=== PATIENT | male | born 1960 | race African-American/Black ===

== ENCOUNTER 2022-12-03 11:07 | Emergency (ER) | payer MEDICARE, SELFPAY ==
[2022-12-03 11:16] VITALS: BP 114/76; PULSE 70; RESP 18; TEMP 36.5; O2SAT 100; BMI 31.3
--- NOTE | 2022-12-03 11:33 | ED.GENADUL1 ---
HPI - General Adult General Chief complaint: Urogenital-Male Stated complaint: HEMATURIA Time Seen by Provider: 12/03/22 11:19 Source: patient Mode of arrival: walk-in Limitations: no limitations History of Present Illness HPI narrative: for the last 7 days the patient has urinated blood and passed blood per rectum. He initially had decreased appetite and upper abdominal pain but has none now. No flank pain. No fever or chills. No skin rash. he went to [facility] [place] [facility] last week - he told me they did an EKG and discharged him home without any other tests. He went to his PCP's office this morning and Dr Gray immediately sent him to the ED for evaluation. No prior history of GI bleed, kidney stones, UTI. he has CHF and takes Eliquis. Related Data Allergies Allergy/AdvReac Type Severity Reaction Status Date / Time No Known Drug Allergies Allergy Verified 12/03/22 11:21 Exam Narrative Exam Narrative: Nurses notes and vital signs reviewed and patient is not hypoxic. afebrile General: Well-appearing and in no apparent distress. Skin: Warm, dry, no pallor noted. No rash. Head: Normocephalic, atraumatic. Neck: Supple, non-tender. Eye: Pupils are equal, round and EOMI. No scleral icterus. Ears, Nose, Mouth, and Throat: Oral mucosa is moist, no posterior oropharynx erythema, uvula is mid-line Cardiovascular: Regular Rate and Rhythm without murmur, gallop or rub. Respiratory: No accessory muscle use or respiratory distress. Lungs are clear to auscultation, no wheezing, rales or rhonchi Back: No midline thoracic or lumbar vertebral tenderness. No CVA tenderness Musculoskeletal: normal ROM, no calf or popliteal tenderness, no lower extremity edema/swelling GI: Abdomen is soft, non-distended. Normal bowel sounds. No masses appreciated. No tenderness to palpation. No rebound, guarding, or rigidity noted. Neurological: A&O x4. No cranial nerve dysfunction observed. No truncal ataxia. Moves all extremities. Sensation intact. Psychiatric: Cooperative and interactive. Normal mood and affect. Constitutional Vital Signs, click to edit/add: Last Vital Signs Temp 97.7 F 12/03/22 11:16 Pulse 55 L 12/03/22 13:02 Resp 18 12/03/22 13:02 BP 125/66 H 12/03/22 13:02 Pulse Ox 96 12/03/22 13:02 O2 Del Method Room Air 12/03/22 11:16 Course Vital Signs Vital signs: Vital Signs Temperature 97.7 F 12/03/22 11:16 Pulse Rate 70 12/03/22 11:16 Respiratory Rate 18 12/03/22 11:16 Blood Pressure 114/76 12/03/22 11:16 Pulse Oximetry 100 12/03/22 11:16 Oxygen Delivery Method Room Air 12/03/22 11:16 Temperature 97.7 F 12/03/22 11:16 Pulse Rate 55 L 12/03/22 13:02 Respiratory Rate 18 12/03/22 13:02 Blood Pressure 125/66 H 12/03/22 13:02 Pulse Oximetry 96 12/03/22 13:02 Oxygen Delivery Method Room Air 12/03/22 11:16 Medical Decision Making MDM Narrative Medical decision making narrative: Patient is on eliquis and has CHF. Will be checked for kidney stones, GI bleed and any abdominal or pelvic pathology to account for that. A peripheral IV was established and blood drawn and sent for testing. He was ordered to give us a urine sample for testing as well. He was sent for CT scanning of the abdomen pelvis with both oral and IV contrast. CBC notable for slightly decreased white blood cell count, decreased platelets at 86. CMP notable for decreased potassium at 3.0, slightly elevated BUN and creatinine at thirty-four, 1.99 as well as slightly elevated total bilirubin at 1.4. UA revealed small amount of blood and trace leukocyte esterace with zero to two white cells, no bacteria. Urine culture is not indicated. CT abd/pelvis = unremarkable, possibly early cystitis. Nothing to account for the patient's hematuria or dark stools. Discussed findings with Dr Gray, who saw the patient in the office today. He recommended discharge home with out-patient follow up. Medical Records Medical records reviewed: Yes I reviewed the patient's medical records Medical records narrative: ER report faxed from [facility] - dated November 21, patient was intoxicated and fell - had negative CT scans of the head and CSpine. No mention of hematuria or GI bleed. Lab Data Lab results reviewed: Yes I reviewed the patient's lab results Labs: Lab Results 12/03/22 12/03/22 Range/Units 11:31 11:50 WBC 3.7 L (4.0-11.0) 10^3/uL RBC 3.94 L (4.70-6.10) 10^6/uL Hgb 13.4 L (14.0-18.0) g/dL Hct 37.8 L (42.0-54.0) % MCV 95.9 H (80.0-94.0) fL MCH 34.0 (25.9-34.0) pg MCHC 35.4 H (29.9-35.2) g/dL RDW 11.7 (11.0-15.0) % Plt Count 86 L (150-450) 10^3/uL MPV 12.9 (9.5-13.5) fL Neut % (Auto) 34.7 L (43.0-75.0) % Lymph % (Auto) 41.9 (20.5-60.0) % Grainger % (Auto) 15.9 H (1.7-12.0) % Eos % (Auto) 5.8 (0.9-7.0) % Baso % (Auto) 1.4 (0.2-2.0) % Neut # (Auto) 1.3 L (1.4-6.5) 10^3/uL Lymph # (Auto) 1.5 (1.2-3.8) 10^3/uL Grainger # (Auto) 0.6 (0.3-0.8) 10^3/uL Eos # (Auto) 0.2 (0.0-0.7) 10^3/uL Baso # (Auto) 0.1 (0.0-0.1) 10^3/uL Abs Immat Gran (auto) 0.01 (0.00-0.03) 10^3/uL Imm/Tot Granulo (auto) 0.3 (0.0-0.5) % Sodium 136 (136-145) mmol/L Potassium 3.0 L (3.5-5.1) mmol/L Chloride 102 (98-107) mmol/L Carbon Dioxide 24.6 (21.0-32.0) mmol/L Anion Gap 12.4 BUN 34.0 H (7.0-18.0) mg/dL Creatinine 1.99 H (0.70-1.30) mg/dL Est GFR ( Amer) 41 L (>=60) Est GFR (Non-Af Amer) 34 L (>=60) BUN/Creatinine Ratio 17.1 Glucose 106 (74-106) mg/dL Calcium 8.3 L (8.5-10.1) mg/dL Total Bilirubin 1.4 H (0.2-1.0) mg/dL AST 62 H (15-37) U/L ALT 52 (16-63) U/L Alkaline Phosphatase 54 (46-116) U/L Total Protein 7.3 (6.4-8.2) g/dL Albumin 2.5 L (3.4-5.0) g/dL Globulin 4.8 g/dL Albumin/Globulin Ratio 0.5 Lipase 289.0 (73.0-393.0) U/L Urine Color Yellow (YELLOW) Urine Clarity Clear (CLEAR) Urine pH 6.0 (5.0-9.0) Ur Specific [place] 1.015 (1.005-1.025) Urine Protein Negative (NEG/TRACE) mg/dL Urine Glucose (UA) Negative (NEGATIVE) mg/dL Urine Ketones Negative (NEGATIVE) mg/dL Urine Occult Blood Small A (NEGATIVE) Urine Nitrite Negative (NEGATIVE) Urine Bilirubin Negative (NEGATIVE) Urine Urobilinogen 0.2 (0.2-1.0) EU/dL Ur Leukocyte Esterase Trace A (NEGATIVE) Urine RBC None seen (0-2) #/HPF Urine WBC 0-2 A (NONE SEEN) #/HPF Ur Squamous Epith Cells Few A (NONE/RARE) #/LPF Urine Crystals None seen (None Seen) #/HPF Urine Bacteria None seen (NONE SEEN) #/HPF Urine Casts None seen (NONE SEEN) #/LPF Urine Mucus None seen (NONE SEEN) Ur Culture Indicated? No Imaging Data ct abd/pelvis: Radiologist's impression: Patient Name: JACKI SANFORD MRN: [id number] date: 1960 Sex: M Assigned Patient Location: ER Current Patient Location: ER Accession/Order Number: [id number] Exam Date: 12/03/2022 13:18 Report Date: 12/03/2022 14:27 At the request of: LISA SIEGEL Procedure: CT abdomen pelvis w con EXAMINATION: CT abdomen pelvis w con, 12/03/2022 1:18 PM EDT HISTORY: hematuria, GI bleeding COMPARISON: Relevant priors reviewed including CT of the abdomen and pelvis 02/12/2018 TECHNIQUE: CT of the abdomen, and pelvis was performed following administration of IV contrast. Oral contrast was administered prior to the examination. Dose reduction techniques were achieved by using automated exposure control and/or adjustment of mA and/or kV according to patient size and/or use of iterative reconstruction technique. FINDINGS: Lung Bases: No acute findings in the visualized lower chest. Atherosclerotic calcification of the coronary arteries. Liver: Normal size. Widening of the seizures with slight contour nodularity raises concern for chronic hepatocellular disease/cirrhosis. No mass. Biliary tree: Normal. Gallbladder: Mild gallbladder wall thickening likely relates to underlying hepatocellular disease. No cholelithiasis or findings of acute cholecystitis. Spleen: Normal. Pancreas: Normal. Adrenal glands: Normal. Kidneys and ureters: No hydronephrosis. Subcentimeter cortical hypodensities bilaterally are technically too small to characterize, well-defined, likely benign cysts. Bladder: Diffuse bladder wall thickening, partially relates to underdistention. Reproductive organs: Prostate is not significantly enlarged. Seminal vesicles are symmetric. Gastrointestinal tract: No abnormal bowel dilatation. Active gastrointestinal bleeding cannot be assessed with the use of oral contrast. Few scattered colonic diverticula without findings of acute diverticulitis. The appendix is normal. Peritoneum/retroperitoneum: No free fluid or gas. Vasculature: Atherosclerosis without aneurysm.. Lymph nodes: Normal. Abdominal wall: Procedure change from bilateral inguinal hernia repair with mesh. Partially visualized bilateral gynecomastia. Partially visualized lipoma along the left anterior thigh musculature. No acute findings Musculoskeletal: Degenerative change of the spine. IMPRESSION: 1. No acute findings within the abdomen and pelvis. 2. Morphologic changes of the liver concerning for chronic hepatocellular disease/cirrhosis. Spleen is not significantly enlarged. No ascites. 3. Diffuse bladder wall thickening at least in part relates to underdistention. Correlate with urinalysis if there is clinical concern for cystitis. Electronically authenticated by: LM MENDOZA Date: 12/03/2022 14:27 Discharge Plan Discharge Chief Complaint: Urogenital-Male Clinical Impression: Complaint of melena, Microhematuria, Thrombocytopenia Patient Disposition: Home, Self-Care Time of Disposition Decision: 14:46 Instructions: Hematuria (ED), Melena (ED) Stand Alone Forms: Portal Instructions Referrals: Joaquin Leonard MD [Primary Care Provider] - 1 week
[2022-12-03 12:03] LABS: Basophils Absolute Auto 0.1 10^3/uL (0.0-0.1); Basophils Percent Auto 1.4 % (0.2-2.0); Eosinophils Absolute Auto 0.2 10^3/uL (0.0-0.7); Eosinophils Percent Auto 5.8 % (0.9-7.0); Hematocrit 37.8 % (42.0-54.0); Hemoglobin 13.4 g/dL (14.0-18.0); Immature Granulocytes Abs Auto 0.01 10^3/uL (0.00-0.03); Immature Granulocytes Pct Auto 0.3 % (0.0-0.5); Lymphocytes Absolute Auto 1.5 10^3/uL (1.2-3.8); Lymphocytes Percent Auto 41.9 % (20.5-60.0); Mean Corpuscular HGB Conc 35.4 g/dL (29.9-35.2); Mean Corpuscular Volume 95.9 fL (80.0-94.0); Mean Platelet Volume 12.9 fL (9.5-13.5); Monocytes Absolute Auto 0.6 10^3/uL (0.3-0.8); Monocytes Percent Auto 15.9 % (1.7-12.0); Neutrophils Absolute Auto 1.3 10^3/uL (1.4-6.5); Neutrophils Percent Auto 34.7 % (43.0-75.0); Platelet Count 86 10^3/uL (150-450); Red Blood Count 3.94 10^6/uL (4.70-6.10); Red Cell Distribution Width 11.7 % (11.0-15.0); White Blood Count 3.7 10^3/uL (4.0-11.0)
[2022-12-03 12:32] LABS: Bilirubin Urine NEGATIVE (NEGATIVE); Blood Urine SMALL (NEGATIVE); Clarity Urine CLEAR (CLEAR); Color Urine YELLOW (YELLOW); Glucose Urine UA NEGATIVE (NEGATIVE); Ketones Urine NEGATIVE (NEGATIVE); Leukocyte Esterase Urine TRACE (NEGATIVE); Nitrite Urine NEGATIVE (NEGATIVE); Protein Urine NEGATIVE (NEG/TRACE); Specific Gravity Urine 1.015 (1.005-1.025); Urobilinogen Urine 0.2 EU/dL (0.2-1.0)
[2022-12-03 12:33] LABS: Alanine Aminotransferase 52 U/L (16-63); Albumin Globulin Ratio 0.5; Albumin Level 2.5 g/dL (3.4-5.0); Alkaline Phosphatase 54 U/L (46-116); Anion Gap 12.4; Aspartate Amino Transferase 62 U/L (15-37); BUN Creatinine Ratio 17.1; Bilirubin Total 1.4 mg/dL (0.2-1.0); Calcium 8.3 mg/dL (8.5-10.1); Carbon Dioxide 24.6 mmol/L (21.0-32.0); Chloride 102 mmol/L (98-107); Estimated GFR (African America 41 (>=60); Estimated GFR (Non-African Ame 34 (>=60); Globulin 4.8 g/dL; Glucose 106 mg/dL (74-106); Sodium 136 mmol/L (136-145); Total Protein 7.3 g/dL (6.4-8.2)
[2022-12-03 12:36] LABS: Urine Microscopic Indicated YES
[2022-12-03 12:37] LABS: Bacteria Urine NONE SEEN #/HPF (NONE SEEN); RBC Urine NONE SEEN #/HPF (0-2); WBC Urine 0-2 #/HPF (NONE SEEN)
[2022-12-03 12:38] LABS: Cast Seen? NONE SEEN #/LPF (NONE SEEN); Crystals Seen? None Seen #/HPF (None Seen); Mucus Urine NONE SEEN (NONE SEEN); Squamous Epithelial Cell Urine FEW #/LPF (NONE/RARE); Urine Culture Indicated NO
[2022-12-03 13:02] VITALS: BP 125/66; PULSE 55; RESP 18; O2SAT 96
--- NOTE | 2022-12-03 13:28 | CT_ITS ---
[address] [address] Patient Name: JACKI SANFORD MRN: [id number] date: 1960 Sex: M Assigned Patient Location: ER Current Patient Location: ER Accession/Order Number: [id number] Exam Date: 12/03/2022 13:18 Report Date: 12/03/2022 14:27 At the request of: LISA SIEGEL Procedure: CT abdomen pelvis w con EXAMINATION: CT abdomen pelvis w con, 12/03/2022 1:18 PM EDT HISTORY: hematuria, GI bleeding COMPARISON: Relevant priors reviewed including CT of the abdomen and pelvis 02/12/2018 TECHNIQUE: CT of the abdomen, and pelvis was performed following administration of IV contrast. Oral contrast was administered prior to the examination. Dose reduction techniques were achieved by using automated exposure control and/or adjustment of mA and/or kV according to patient size and/or use of iterative reconstruction technique. FINDINGS: Lung Bases: No acute findings in the visualized lower chest. Atherosclerotic calcification of the coronary arteries. Liver: Normal size. Widening of the seizures with slight contour nodularity raises concern for chronic hepatocellular disease/cirrhosis. No mass. Biliary tree: Normal. Gallbladder: Mild gallbladder wall thickening likely relates to underlying hepatocellular disease. No cholelithiasis or findings of acute cholecystitis. Spleen: Normal. Pancreas: Normal. Adrenal glands: Normal. Kidneys and ureters: No hydronephrosis. Subcentimeter cortical hypodensities bilaterally are technically too small to characterize, well-defined, likely benign cysts. Bladder: Diffuse bladder wall thickening, partially relates to underdistention. Reproductive organs: Prostate is not significantly enlarged. Seminal vesicles are symmetric. Gastrointestinal tract: No abnormal bowel dilatation. Active gastrointestinal bleeding cannot be assessed with the use of oral contrast. Few scattered colonic diverticula without findings of acute diverticulitis. The appendix is normal. Peritoneum/retroperitoneum: No free fluid or gas. Vasculature: Atherosclerosis without aneurysm.. Lymph nodes: Normal. Abdominal wall: Procedure change from bilateral inguinal hernia repair with mesh. Partially visualized bilateral gynecomastia. Partially visualized lipoma along the left anterior thigh musculature. No acute findings Musculoskeletal: Degenerative change of the spine. CT/CT abdomen pelvis w con IMPRESSION: 1. No acute findings within the abdomen and pelvis. 2. Morphologic changes of the liver concerning for chronic hepatocellular disease/cirrhosis. Spleen is not significantly enlarged. No ascites. 3. Diffuse bladder wall thickening at least in part relates to underdistention. Correlate with urinalysis if there is clinical concern for cystitis. Electronically authenticated by: LM MENDOZA Date: 12/03/2022 14:27
[2022-12-03 14:43] VITALS: BP 112/79; PULSE 57; RESP 16; O2SAT 100
== END 2022-12-03 15:33 | disposition home or self-care (01) ==
PROVIDERS: Emergency Provider Emergency Medicine; PCP Family Medicine
DX: K92.1 Melena (principal); R31.29 Other microscopic hematuria; D69.6 Thrombocytopenia, unspecified; I50.9 Heart failure, unspecified; Z79.01 Long term (current) use of anticoagulants
CPT/HCPCS: 36415; 74177; 80053; 81003; 81015; 83690; 85025; 87507; 99284; Q9966

== ENCOUNTER 2022-12-10 21:49 | Outpatient (REF) | payer MEDICARE, MEDICAID, SELFPAY | END 2022-12-10 21:50 | disposition home or self-care (01) | LOC: LAB 21:49 | PROVIDERS: PCP Family Medicine; Visit Provider Internal Medicine | DX: N39.0 Urinary tract infection, site not specified (principal) | CPT/HCPCS: 87086 ==

== ENCOUNTER 2024-11-03 16:35 | Outpatient (REF) | payer MEDICARE, MEDICAID, SELFPAY ==
--- OUTSIDE RECORDS SUMMARY | 2024-08-20 11:45 | XMS_ITS ---
Author Organization [facility] vices Address [address] [place] [phone] Care Team Providers Care Bank Sales And Service Manager Name Role Phone Estrella Calhoun Unavailable [phone] Sheree Calloway Unavailable [phone] REASON FOR VISIT CANCEL-Comp. Exam Social History Sex Assigned At : Social History Observation Description Sex Assigned At Male Encounters Encounter Location Date Provider Diagnosis [facility] [address] [place], [place] [phone] 08/20/2024 Sheree Calloway Plan Of Treatment No Information Progress Notes * CLARIBELCarlosOvidio LDOB: [birth year] (64 yo M)Acc No.[id number]:08/20/2024 Patient: Ovidio ADAMS Provider: Ninfa Calloway DDS :1960 A ge:64 Y S ex:Male Date:08/20/2024 Address:[address] [place], [place] [id number] Subjective: * Chief Complaints: * 1 . CANCEL-Comp. Exam. * Medical History: Objective: * Vitals: Assessment: Plan: * Treatment: * Billing Information: * Visit Code: * Procedure Codes: * Electronic signature of Priya Calloway DDS on 11/03/2024 at 04:41 PM EDT Sign off status: Pending * Provider: Ninfa Calloway DDS Date: 08/20/2024 Generated for Orali ng/Faneg/eTransmitting on: 0 11/03/2024 04:41 PM EDT
--- OUTSIDE RECORDS SUMMARY | 2024-09-30 05:30 | XMS_ITS ---
Author Organization [facility] Address [address] [place] [phone] Care Team Providers Care Hr Analyst Name Role Phone Estrella Calhoun Unavailable [phone] Sheree Calloway Unavailable [phone] REASON FOR VISIT Comp Exam Social History Sex Assigned At : Social History Observation Description Sex Assigned At Male Encounters Encounter Location Date Provider Diagnosis [facility] [address] [place], [place] [phone] 09/30/2024 Sheree Calloway Plan Of Treatment No Information Progress Notes * Ovidio COULTER LDOB: [birth year] (64 yo M)Acc No.[id number]:09/30/2024 Patient: Alicia ADAMSmagan Norris Provider: Ninfa Calloway DDS :1960 A ge:64 Y S ex:Male Date:09/30/2024 Address:[address] [place], [place] [id number] Subjective: * Chief Complaints: * 1 . Comp Exam. * Medical History: Objective: * Vitals: Assessment: Plan: * Treatment: * Billing Information: * Visit Code: * Procedure Codes: * Electronic signature of Priya Calloway DDS on 11/03/2024 at 04:40 PM EDT Sign off status: Pending * Provider: Ninfa Calloway DDS Date: 09/30/2024 Generated for Brittany seals/Kulwinder/eTraninezitting on: 0 11/03/2024 04:40 PM EDT
--- OUTSIDE RECORDS SUMMARY | 2024-10-25 13:25 | XMS_ITS | Encounter Summary ---
Author Organization [facility] tem Address [id number] [address] [place] [address] Care Team Providers Care Seat Mender Name Role Phone Estrella Medina FAMILY PRESERVATION WORKER-SOFTWARE COMPUTER SPECIALIST Primary Care Pr ovider Reason for Visit * Reason Comments Groin Swelling States he was riding his scooter Saturday and thinks a bug crawled up his pant leg and bit him. States his testicles are swollen and painful. Encounter Details Date Type Department Care Team (Late st Contact Info) Description 10/25/2024 1:25 PM EDT - 10/25/2024 6:59 PM EDT Emergency [facility] - Emergency [address] [place] [id number] William Bowlse MD [address] [place] [address] Scrotal abscess (Primary Dx); Epididymitis Discharge Disposition: Another Hospital Social History Tobacco Use Types Packs/Day Years Used Date Smoking Tobacco: Never Smokeless Tobacco: Never Alcohol Use Standard Drinks/Week Comments Yes 28 (1 standard drink = 0.6 oz pu re alcohol) every other day [facility] Utilities Answer Date Recorded In the past 12 months has e electric, gas, oil, or water company threatened to shut off services in your home? No 10/26/2024 Social Connection and Isolat ion Panel [NHANES] Answer Date Recorded In a typical week, how many times do you talk on the phone with family, friends, or neighbors? More than three times a week 12/26/2022 How often do you get togethe r with friends or relatives? More than three times a week 12/26/2022 How often do you attend chur ch or druze services? Never 12/26/2022 Do you belong to any clubs o r organizations such as mu-ism groups, unions, fraternal or athletic groups, or school groups? No 12/26/2022 How often do you attend meet ings of the clubs or organizations you belong to? Never 12/26/2022 Are you , , di vorced, , never , or living with a partner? 12/26/2022 AUDIT-C Answer Date Recorded Q1: How often do you have a drink containing alcohol? 4 or more times a week 10/26/2024 Q2: How many drinks containi ng alcohol do you have on a typical day when you are drinking? 3 or 4 Q3: How often do you have si x or more drinks on one occasion? Weekly 10/26/2024 Overall Financial Resource Strain (CARDIA) Answe r Date Recorded How hard is it for you to pa y for the very basics like food, housing, medical care, and heating? Not very hard 12/26/2022 PHQ-2 Answer Date Recorded Total Score 0 10/26/2024 [employer] - Occupational Stress Questionnaire Answer Date Recorded Do you feel stress - tense, restless, nervous, or anxious, or unable to sleep at night because your mind is troubled all the time - these days? Only a little 12/26/2022 Exercise Vital Sign Answer Date Recorde d On average, how many days pe r week do you engage in moderate to strenuous exercise (like a brisk walk)? 2 days 12/26/2022 On average, how many minutes do you engage in exercise at this level? 20 min 12/26/2022 PRAPARE - Transportation Answer Date Re corded In the past 12 months, has l ack of transportation kept you from medical appointments or from getting medications? No 01/2025 In the past 12 months, has l ack of transportation kept you from meetings, work, or from getting things needed for daily living? No 10/26/2024 Housing Instability Answer Date Recorde d Are you worried or concerned that in the next two months you may not have stable housing that you own, rent or stay in as a part of a household? No 10/26/2024 Childcare Answer Date Recorded Do problems getting child ca re make it difficult for you to work or study? No 12/26/2022 Employment Answer Date Recorded Do you need help finding a [facility] career center and/or a training program? No 12/26/2022 Hunger Screening Answer Date Recorded Within the past 12 months we worried whether our food would run out before we got money to buy more. Never True 10/26/2024 Within the past 12 months th e food we bought just didn't last and we didn't have money to get more. Never True 10/26/2024 Purpose - Life Answer Date Recorded I have a purpose and direction in my life. Somew hat Agree 12/26/2022 Sex and Gender Information Value Date Recorded Sex Assigned at Not on file Legal Sex Male 11:24 AM EDT Gender Identity Not on file Sexual Orientation Not on file documented as of this encounter Last Filed Vital Signs Vital Sign Reading Time Taken Comments Blood Pressure 153/103 10/25/2024 6:30 PM EDT Pulse 101 10/25/2024 6:00 PM EDT Temperature 36.8 C (98.2 F) 10/25/2024 1:31 PM EDT Respiratory Rate 18 10/25/2024 1:31 PM EDT Oxygen Saturation 97% 10/25/2024 6:37 PM EDT Inhaled Oxygen Concentration - - Weight 112.9 kg (249 lb) 10/25/2024 1:31 PM EDT Height 175.3 cm (5' 9 ) 10/25/2024 1:31 PM EDT Body Mass Index 36.77 10/25/2024 1:31 PM EDT documented in this encounter Medications at Time of Discharge apixaban (ELIQUIS) 5 mg tablet Take 1 tablet (5 mg total) by mouth in the morning and 1 tablet (5 mg total) before bedtime. 180 tablet 3 11/16/2021 clopidogreL (PLAVIX) 75 mg tablet Take 1 tablet (75 mg total) by mouth in the morning for 120 days. 30 tablet 3 10/28/2024 02/25/2025 dapagliflozin propanediol (FARXIGA) 10 mg tabletIndications :CKD (chronic kidney disease) stage 4, GFR 15-29 ml/min ([facility]) Take 1 tablet (10 mg total) by mouth in the morning. 90 tablet 3 04/01/2024 ezetimibe (ZETIA) 10 mg tablet Take 1 tablet (10 mg total) by mouth in the morning. hydrOXYzine (ATARAX) 25 mg tablet Take 1 tablet (25 mg total) by mouth every 6 (six) hours as needed. 09/23/2023 isosorbide mononitrate (IMDUR) 30 mg 24 hr tablet Take 1 tablet (30 mg total) by mouth daily. phmpponc-lmn-scxc ous gluconate (CENTRUM) 9 mg iron/15 mL liquid Take 15 mL by mouth in the morning. 02/08/2023 nitroglycerin (NITROSTAT) 0.[address] 1 tablet (0.4 mg total) under the tongue every 5 (five) minutes as needed for chest pain. omeprazole (PriLOSEC) 20 mg capsule Take 1 capsule (20 mg total) by mouth daily. 30 capsule 09/27/2020 QUEtiapine (SEROquel) 25 mg tablet Take 0.5 tablets (12.5 mg total) by mouth nightly. 02/07/2023 sacubitriL-valsar mckenna (ENTRESTO) 97-103 mg tablet Take 1 tablet by mouth in the morning and 1 tablet before bedtime. 180 tablet 3 04/06/2024 spironolactone (ALDACTONE) 25 mg tabletIndications :Cardiomyopathy, unspecified type ([facility]),Congest tunde heart failure, unspecified HF chronicity, unspecified heart failure type ([facility]) take 1 tablet by mouth every morning 30 tablet 11 02/25/2024 vancomycin (VANCOCIN) 50 mg/mL oral solution Take 2.5 mL (125 mg total) by mouth every 6 (six) hours for 13 days. 130 mL 10/29/2024 11/11/2024 levoFLOXacin (LEVAQUIN) 750 mg tablet Take 1 tablet (750 mg total) by mouth in the morning for 3 days. 3 tablet 10/29/2024 11/01/2024 metroNIDAZOLE (FLAGYL) 500 mg tablet Take 1 tablet (500 mg total) by mouth 3 (three) times a day for 3 days. 9 tablet 10/28/2024 10/31/2024 acidophilus-pecti n, citrus 25 million cell -100 mg tablet Take 1 tablet by mouth in the morning and 1 tablet at noon and 1 tablet in the evening. Take with meals. 30 tablet 01/24/2023 10/26/2024 atorvastatin (LIPITOR) 80 mg tablet Take 1 tablet (80 mg total) by mouth in the morning. 10/26/2024 bumetanide (BUMEX) 2 mg tabletIndications :edema Take 1 tablet (2 mg total) by mouth 2 (two) times a day before meals Indications: visible water retention. 10/26/2024 cholecalciferol 2,000 units tablet Take 1 tablet (2,000 Units total) by mouth in the morning. 30 tablet 01/25/2023 10/26/2024 clopidogreL (PLAVIX) 75 mg tablet TAKE 1 TABLET BY MOUTH IN THE MORNING. 90 tablet 3 04/28/2024 10/26/2024 magnesium oxide (MAGOX) 400 mg tablet Take 1 tablet (400 mg total) by mouth in the morning. 90 tablet 3 04/01/2024 10/26/2024 metoprolol succinate XL (TOPROL XL) 50 mg 24 hr tablet Take 1 tablet (50 mg total) by mouth in the morning. 08/22/2023 10/26/2024 documented as of this encounter ED Notes * William Bowles MD - 10/25/2024 1:28 PM EDTAssociated Order(s): Incision and Drainage Images from the original note were not included. [facility] - EMERGENCY Pt Name: Ovidio Coulter Birthdate: 1960 Chief Complaint: Chief Complaint Patient presents with Groin Swelling States he was riding his scooter Saturday and thinks a bug crawled up his pant leg and bit him. States his testicles are swollen and painful. History of Present Illness: Initial evaluation performed at 1:[address] Bowles. Patient is a 64 y.o. male who presents to the ED for evaluation of groin pain. Pt states he thinks a bug had crawled up his pant leg while he was riding his scooter two days ago. Pt reports today, hehas been experiencing testicle pain. Pt describes swelling to his right testicle. Pt reports experiencing a headache. Pt denies fever. Pt denies taking any medication to alleviate his pain. Pt has noknown medication allergies. History provided by: Patient front worker used: No Past Medical History: Past Medical History: Diagnosis Date AAA (abdominal aortic aneurysm) ACS (acute coronary syndrome) ([facility]) 11/12/2022 Alcoholism ([facility]) Atrial fibrillation ([facility]) Bilateral leg pain Bowel wall thickening Cellulitis of left lower extremity resolved CHF (congestive heart failure) ([facility]) Chronic pain of both knees CKD (chronic kidney disease) stage 4, GFR 15-29 ml/min ([facility]) Coronary artery disease Dental disease partial upper and lower Dyslipidemia Electrolyte abnormality 05/02/2022 Elevated troponin 02/12/2018 GERD (gastroesophageal reflux disease) Gout Heart disease Hep C w/o coma, chronic ([facility]) High cholesterol Hyperglycemia Hypertension Inguinal hernia right inguinal repaired Kidney stones NH (myocardial infarction) ([facility]) 05/2018 Nstemi, 02/01/2015 MIS (Mullerian inhibiting substance) deficiency Obesity JAIME (obstructive sleep apnea) needs to get machine Renal dysfunction Renal insufficiency 04/03/2016 RUQ abdominal pain Sepsis due to urinary tract infection ([facility]) 01/09/2023 Shortness of breath Syncope 05/2018 Thrombocytopenia Unstable angina ([facility]) 09/26/2018 Visual impairment glasses Past Surgical History: Past Surgical History: Procedure Laterality Date CARDIAC CATHETERIZATION Cardiac catheterization N/A 10/13/2021 Performed by Jeff Tomas MD at [facility] CARDIAC CATH LABS COLONOSCOPY Coronary angiogram and left ventricular gram/pressure N/A 10/06/2018 Performed by Devyn Ramos DO at [facility] CARDIAC CATH LABS Coronary angiogram and left ventricular gram/pressure N/A 07/25/2016 Performed by Loreto Méndez MD at [facility] CARDIAC CATH LABS Coronary angiogram only N/A 10/13/2021 Performed by Jeff Tomas MD at [facility] CARDIAC CATH LABS CORONARY ANGIOPLASTY WITH STENT PLACEMENT 2017 three CORONARY ANGIOPLASTY WITH STENT PLACEMENT 01/27/2015 BMS, Circ, Nstemi DAVINCI ROBOTIC ASSISTED INGUINAL HERNIA REPAIR WITH MESH Bilateral 01/19/2021 Performed by Gunner Weldon MD at [facility] SURGERY EGD DIAGNOSTIC N/A 02/14/2018 Performed by Ponce Guy MD at [facility] EGD/PEG TUBE PLACEMENT N/A 01/16/2023 Performed by Denai Boothe MD at [facility] EP Invasive DC ICD N/A 03/19/2024 Performed by Socorro Ruiz MD at [facility] HRC (EP) HERNIA REPAIR Right Intravascular pressure measurement first vessel(fractional flow reserve) N/A 10/06/2018 Performed by Devyn Ramos DO at [facility] CARDIAC CATH LABS Intravascular ultrasound coronary N/A 07/25/2016 Performed by Loreto Méndez MD at [facility] CARDIAC CATH LABS PEG TUBE REMOVAL 06/25/2023 Family History: Family History Problem Relation Age of Onset Cancer Mother Colon cancer Father Hyperlipidemia Brother Hypertension Brother Kidney disease Sister Anesthesia problems Neg Hx Social History: Social History Socioeconomic History Marital status: Single Tobacco Use Smoking status: Never Smokeless tobacco: Never Vaping Use Vaping status: Never Used Substance and Sexual Activity Alcohol use: Yes Alcohol/week: 28.0 standard drinks of alcohol Types: 14 Cans of beer, 14 Shots of liquor per week Comment: every other day Drug use: Yes Types: Marijuana Comment: daily Sexual activity: Defer Other Topics Concern Caffeine Use No Comment: soda daily Social Drivers of Health Financial Resource Strain: At Risk (08/04/2024) Received from [facility] - Financial Strain Difficulty of Paying Living Expenses: Somewhat hard Food Insecurity: No Food Insecurity (10/25/2024) Hunger Screening Food Insecurity - Worry: Never True Food Insecurity - Inability: Never True Recent Concern: Food Insecurity - Food Insecurity Present (08/04/2024) Received from [facility] Hunger Vital Sign Worried About Running Out of Food in the Last Year: Sometimes true Ran Out of Food in the Last Year: Sometimes true Transportation Needs: Not At Risk (08/04/2024) Received from [facility] - Transportation Lack of Transportation: No Physical Activity: Insufficiently Active (12/26/2022) Exercise Vital Sign Days of Exercise per Week: 2 days Minutes of Exercise per Session: 20 min Stress: No Stress Concern Present (12/26/2022) [employer] - Occupational Stress Questionnaire Feeling of Stress : Only a little Social Connections: Socially Isolated (12/26/2022) Social Connection and Isolation Panel [NHANES] Frequency of Communication with Friends and Family: More than three times a week Frequency of Social Gatherings with Friends and Family: More than three times a week Attends Orthodox Services: Never Active Member of Clubs or Organizations: No Attends Club or Organization Meetings: Never Marital Status: Interpersonal Safety: Not At Risk (08/04/2024) Received from [facility] NCSS - Interpersonal Safety Feels Physically and Emotionally Safe: Yes Physically Hurt by Someone: No Humiliated or Emotionally Abused by Someone: No Housing Instability: Not At Risk (08/04/2024) Received from [facility] - Inadequate Housing Current Living Situation: I have a steady place to live Housing Problems: None of the above Review of Systems: Review of Systems Physical Exam: ED Triage Vitals Temp Pulse Resp BP SpO2 -- -- -- -- -- Temp src Heart Rate Source Patient Position BP Location FiO2 (%) -- -- -- -- -- Vitals: 10/25/24 1331 10/25/24 1415 BP: (!) 165/124 156/81 Temp: 36.8 ??C (98.2 ??F) Pulse: 104 Resp: 18 SpO2: 96% 95% Height: 175.3 cm (5' 9 ) Weight: 112.9 kg (249 lb) Physical Exam Vitals reviewed. HENT: Head: Normocephalic and atraumatic. Eyes: Conjunctiva/sclera: Conjunctivae normal. Cardiovascular: Rate and Rhythm: Normal rate. Pulmonary: Effort: Pulmonary effort is normal. Breath sounds: Normal breath sounds. Abdominal: General: There is no distension. Palpations: Abdomen is soft. Genitourinary: Testes: Right: Tenderness and swelling (and firm) present. Left: Tenderness or swelling not present. Comments: Small wound to the bottom right testicle, not draining any fluid. Musculoskeletal: General: Normal range of motion. Cervical back: Normal range of motion and neck supple. Skin: General: Skin is warm and dry. Neurological: General: No focal deficit present. Mental Status: He is alert and oriented to person, place, and time. GCS: GCS eye subscore is 4. GCS verbal subscore is 5. GCS motor subscore is 6. Procedure: Incision and Drainage Date/Time: 10/25/2024 4:22 PM Performed by: William Bowles MD Authorized by: William Bowles MD Consent: Consent obtained: Verbal Consent given by: Patient Risks, benefits, and alternatives were discussed: yes Risks discussed: Bleeding and infection [place] protocol: Procedure explained and questions answered to patient or proxy's satisfaction: yes Relevant documents present and verified: yes Test results available : yes Imaging studies available: yes Required blood products, implants, devices, and special equipment available: yes Site/side marked: yes Immediately prior to procedure, a time out was called: yes Patient identity confirmed: Verbally with patient Location: Type: Abscess Location: Anogenital Anogenital location: Scrotal wall Pre-procedure details: Skin preparation: Antiseptic wash and chlorhexidine Anesthesia: Anesthesia method: Local infiltration Local anesthetic: Lidocaine 1% w/o epi Procedure type: Complexity: Simple Procedure details: Incision types: Stab incision Incision depth: Dermal Wound management: Probed and deloculated, irrigated with saline and extensive cleaning Drainage: Purulent Drainage amount: Copious Wound treatment: Wound left open Packing materials: 05/23 in iodoform gauze Post-procedure details: Procedure completion: Tolerated Re-evaluation: Kasia Diallo (scribe), documented on behalf and in the presence of Dr. Fifi Bowles. 3:[address] Bowles re-evaluated pt and discussed imaging results. Plan to discuss findings with Urology. Medical Decision Making Amount and/or Complexity of Data Reviewed Labs: ordered. Details: Labs notable for: CBC shows WBC 12.8, RBC count 3.89, hemoglobin 12.5, hematocrit 36.9, neutrophils absolute 10.4, and platelets 91. BMP shows chloride 115, CO2 17, anion gap 4, creatinine 1.47, calcium 7.7 and eGFR 53. Urine shows protein >=300 mg/dL and large blood in urine. Radiology: ordered and independent interpretation performed. Details: Imaging was independently viewed and ultrasound scrotum is notable for abscess and orchitis. In agreement with official radiologist read. Discussion of management or test interpretation with external provider(s): 3:[address] Bowles spoke with Dr. Silveira from Urology, who reviewed case. At this time, they recommend transfer ER to ER to [place]. Dr. Silveira discussed incision and drainage if pt is agreeable to plan. Risk Prescription drug management. ED Course: ED Course as of 10/25/24 1606 Sun Oct 25, 2024 1605 Ultrasound scrotum for TORSION with duplex IMPRESSION: * Both testicles demonstrate increased Doppler flow and there is increased Doppler flow in both epididymides. Findings most consistent with epididymal orchitis. * Right epididymal cyst head of the epididymis * Complex right hydrocele containing some debris * Irregular fluid collection in the right scrotum surrounded by scrotal wall thickening and increased Doppler flow. Finding is most consistent for an abscess measurements are given above * Left scrotal wall thickening and induration with increased Doppler flow but no definite fluid collection on the left side of the scrotum [NS] 1605 Patient signed out to me pending transfer to [place] ER to ER for urology evaluation. Comes in with scrotal pain, found to have scrotal abscess. Started on Zosyn. Hemodynamically stable at this time. [NS] ED Course User Index [NS] Sarah Toribio DO Clinical Impressions as of 10/25/24 1606 Scrotal abscess Epididymitis Transfer of Care: Kasia Diallo(scribe), documented on behalf and in the presence of Dr. Fifi Bowles. 10/25/2024 4:[address] Toribio accepted sign out from Dr. Bowles. Additional Notes/Findings for Transfer of Care 4:00 PM Kasia Diallo (scribe) am signing out this note to the second scribe due to routine shift change at 4:00 PM. ED Disposition None . Please note that portions of this note were completed with a voice recognition program. Efforts were made to edit the dictations but occasionally words are mis-transcribed. Kasia Newberry 10/25/24 1337 Kasia Rohith 10/25/24 1406 Kasia Newberry 10/25/24 1600 Oscar Tinnnancy 10/25/24 1608 Oscar Melchor 10/25/24 1624 William Bowles MD 11/03/24 1322 documented in this encounter Plan of Treatment Not on file documented as of this encounter Procedures Procedure Name Priority Date/Time Associated Diagnosis Comments SUPERFICIAL WOUND CULTURE STAT 10/25/2024 4:23 PM EDT PM ED INCISION AND DRAINAGE Routine 10/25/2024 4:22 PM EDT POCT NURSING URINE MACROSCOPIC UA Routine 10/25/2024 3:44 PM EDT URINALYSIS STAT 10/25/2024 3:38 PM EDT US SCROTUM WITH DUPLEX STAT 10/25/2024 2:50 PM EDT EXTRA TUBES BLUE TOP Routine 10/25/2024 1:47 PM EDT LACTATE W/ REFLEX Routine 10/25/2024 1:4 7 PM EDT EXTRA TUBES Routine 10/25/2024 1:47 PM EDT CBC WITH AUTO DIFFERENTIAL STAT 10/25/2024 1:47 PM EDT BASIC METABOLIC PANEL STAT 10/25/2024 1:47 PM EDT documented in this encounter Results * Wound culture (10/25/2024 4:23 PM EDT) CULTURE RESULTS NO GROWTH 2 DAYS 10/27/2024 10:31 AM EDT [facility] GRAM STAIN >25 White Blood Cells/LPF 10/27/2024 10:31 AM EDT [facility] GRAM STAIN 0 Squamous Epithelial Cells/LPF 10/27/2024 10:31 AM EDT [facility] GRAM STAIN No organisms seen 10/27/2024 10:31 AM EDT [facility] Swab Structure of right testis / Unknown 10/25/2024 4:23 PM EDT 10/25/2024 4:43 PM EDT William Bowles MD MICROBIOLOGY - GENERAL ORDERABLE S Final Result [facility] [address] [place] [address], [place] [phone] * Incision and Drainage (10/25/2024 4:22 PM EDT) Narrative William Bowles MD - 10/25/2024 4:22 PM EDT William Bowles MD 11/03/2024 1:22 PM Incision and Drainage Date/Time: 10/25/2024 4:22 PM Performed by: William Bowles MD Authorized by: William Bowles MD Consent: Consent obtained: Verbal Consent given by: Patient Risks, benefits, and alternatives were discussed: yes Risks discussed: Bleeding and infection [place] protocol: Procedure explained and questions answered to patient or proxy's satisfaction: yes Relevant documents present and verified: yes Test results available : yes Imaging studies available: yes Required blood products, implants, devices, and special equipment available: yes Site/side marked: yes Immediately prior to procedure, a time out was called: yes Patient identity confirmed: Verbally with patient Location: Type: Abscess Location: Anogenital Anogenital location: Scrotal wall Pre-procedure details: Skin preparation: Antiseptic wash and chlorhexidine Anesthesia: Anesthesia method: Local infiltration Local anesthetic: Lidocaine 1% w/o epi Procedure type: Complexity: Simple Procedure details: Incision types: Stab incision Incision depth: Dermal Wound management: Probed and deloculated, irrigated with saline and extensive cleaning Drainage: Purulent Drainage amount: Copious Wound treatment: Wound left open Packing materials: 1/4 in iodoform gauze Post-procedure details: Procedure completion: Tolerated William Bowles MD PROCEDURE/MINOR SURGICAL ORDERAB LES Final Result * (ABNORMAL) POCT Nursing Urine Macroscopic UA (10/25/2024 3:44 PM EDT) POC Urine Specific [place] 1.025 1.010, 1.015, 1.020, 1.025 10/25/2024 3:39 PM EDT [facility] POC Urine Leukocyte Esterase Negative Negative 10/25/2024 3:39 PM EDT [facility] POC Urine Nitrite Negative Negative 10/25/2024 3:39 PM EDT [facility] POC Urine pH 5.5 5.0, 6.0, 6.5, 7.0, 7.5, 8.0, 8.5, 5.5 10/25/2024 3:39 PM EDT [facility] POC Urine Protein >=300 mg/dL(A) Negative 10/25/2024 3:39 PM EDT [facility] POC Urine Glucose Negative Negative 10/25/2024 3:39 PM EDT [facility] POC Urine Ketones Negative Negative 10/25/2024 3:39 PM EDT [facility] POC Urine Urobilinogen 1.0 E.U./dL 10/25/2024 3:39 PM EDT [facility] POC Urine Bilirubin Negative Negative 10/25/2024 3:39 PM EDT [facility] [facility] POC Urine Blood/HGB Large(A) Negative 10/25/2024 3:39 PM EDT [facility] Urine 10/25/2024 3:44 PM EDT 10/25/2024 3:39 PM EDT us William Bowles MD POINT OF CARE TEST ORDERABLES Fi nal Result [facility] [address] [place] [address], [place] * (ABNORMAL) Urinalysis (10/25/2024 3:38 PM EDT) COLOR Yellow Yellow, Colorless 10/25/2024 3:54 PM EDT [facility] TURBIDITY Clear Clear 10/25/2024 3:54 PM EDT [facility] SPECIFIC GRAVITY 1.025 1.003 - 1.035 10/25/2024 3:54 PM EDT [facility] NITRITE Negative Negative 10/25/2024 3:54 PM EDT [facility] PH,URINE 6.0 5.0 - 8.5 10/25/2024 3:54 PM EDT [facility] LEUKOCYTE ESTERASE Negative Negative 10/25/2024 3:54 PM EDT [facility] PROTEIN 100 mg/dL(A) Negative 10/25/2024 3:54 PM EDT [facility] KETONES (URINE) Negative Negative 3:54 PM EDT [facility] UROBILINOGEN 1.0 eu/dL 0.2 eu/dL, 1.0 eu/dL 10/25/2024 3:54 PM EDT [facility] BILIRUBIN (URINE) Negative Negative 10/25/2024 3:54 PM EDT [facility] BLOOD/HGB Large(A) Negative 10/25/2024 3:54 PM EDT [facility] R.B.CELLS 2 0 - 5 10/25/2024 3:54 PM EDT [facility] SQUAMOUS EPITHELIUM 5 0 - 5 10/25/2024 3:54 PM EDT [facility] GLUCOSE (URINE) Negative Negative, 250 mg/dL 10/25/2024 3:54 PM EDT [facility] Urine Collection / Unknown 10/25/2024 3:38 PM EDT 10/25/2024 3:41 PM EDT us William Bowles MD URINE ORDERABLES Final Result Performing Organization Address City/State/[facility] Co de Phone Number [facility] [address] [place] [address], [place] * Ultrasound scrotum for TORSION with duplex (10/25/2024 2:50 PM EDT) Anatomical Region Laterality Modality Body Ultrasound 10/25/2024 3:36 PM EDT Narrative 10/25/2024 3:43 PM EDT CLINICAL INFORMATION: tender swollen red testicle. TECHNIQUE: Real-time sonographic evaluation of the scrotum and testes was performed with montemayor scale and color flow imaging. Real time montemayor scale, color flow imaging and duplex spectral Doppler waveform analysis evaluation was performed of the major arterial inflow and venous outflow structures of the testicles with arterial and venous spectral waveforms obtained and reviewed in view of the clinical history of tender swollen red testicle . Duplex spectral Doppler document arterial and venous spectral waveforms documented within the major arterial inflow and venous outflow of both testicles. Arterial and venous Doppler duplex spectral waveforms were evaluated. COMPARISON: 03/28/1960 FINDINGS: Right testicle is 3.5 x 2.2 x 2.2 cm. Present in the head of the epididymis on the right. Measures approximately 5.7 x 4.7 mm. No intratesticular mass. Increased Doppler in the right testicle and epididymis. The right scrotal wall demonstrates thickening and there is an irregular fluid collection identified in the right scrotum which is separate from the testicle and separate from a right-sided hydrocele this measures approximately 3.7 x 2.0 cm and is suspicious for abscess. Contains peripheral increased Doppler flow/hyperemia. There is a hydrocele present on the right side which does contain some debris Left testicle 3.0 x 1.6 x 1.9 cm. There is increased Doppler flow in the epididymis and in the testicle. No intratesticular mass. There is marked scrotal induration and thickening on the right side with hyperemia in the scrotal wall but I do not see a drainable fluid collection on the right side of the scrotum. The arterial and venous waveforms are within normal limits. IMPRESSION: * Both testicles demonstrate increased Doppler flow and there is increased Doppler flow in both epididymides. Findings most consistent with epididymal orchitis. * Right epididymal cyst head of the epididymis * Complex right hydrocele containing some debris * Irregular fluid collection in the right scrotum surrounded by scrotal wall thickening and increased Doppler flow. Finding is most consistent for an abscess measurements are given above * Left scrotal wall thickening and induration with increased Doppler flow but no definite fluid collection on the left side of the scrotum Finalized by Grzegorz Mullen MD on 10/25/2024 3:43 PM Procedure Note Grzegorz Mullen MD - 10/25/2024 CLINICAL INFORMATION: tender swollen red testicle. TECHNIQUE: Real-time sonographic evaluation of the scrotum and testes was performedwith montemayor scale and color flow imaging. Real time montemayor scale, color flow imaging and duplex spectral Dopplerwaveform analysis evaluation was performed of the major arterial inflowand venous outflow structures of the testicles with arterial and venousspectral waveforms obtained and reviewed in view of the clinical historyof tender swollen red testicle . Duplex spectral Doppler document arterial and venous spectral waveformsdocumented within the major arterial inflow and venous outflow of bothtesticles. Arterial and venous Doppler duplex spectral waveforms wereevaluated. COMPARISON: 03/28/1960 FINDINGS: Right testicle is 3.5 x 2.2 x 2.2 cm. Present in the head of theepididymis on the right. Measures approximately 5.7 x 4.7 mm. Nointratesticular mass. Increased Doppler in the right testicle andepididymis. The right scrotal wall demonstrates thickening and there is anirregular fluid collection identified in the right scrotum which is separate from the testicle andseparate from a right-sided hydrocele this measures approximately 3.7 x2.0 cm and is suspicious for abscess. Contains peripheral increasedDoppler flow/hyperemia. There is a hydrocele present on the right sidewhich does contain some debris Left testicle 3.0 x 1.6 x 1.9 cm. There is increased Doppler flow in theepididymis and in the testicle. No intratesticular mass. There is markedscrotal induration and thickening on the right side with hyperemia in thescrotal wall but I do not see a drainable fluid collection on the rightside of the scrotum. The arterial and venous waveforms are within normal limits. IMPRESSION: * Both testicles demonstrate increased Doppler flow and there isincreased Doppler flow in both epididymides. Findings most consistent withepididymal orchitis. * Right epididymal cyst head of the epididymis * Complex right hydrocele containing some debris * Irregular fluid collection in the right scrotum surrounded by scrotalwall thickening and increased Doppler flow. Finding is most consistent jeanine abscess measurements are given above * Left scrotal wall thickening and induration with increased Doppler flowbut no definite fluid collection on the left side of the scrotum Finalized by Grzegorz Mullen MD on 10/25/2024 3:43 PM William Bowles MD [facility] ORDERABLES Final Result * Light Blue Top (10/25/2024 1:47 PM EDT) Extra Tube Auto Resulted 10/25/2024 3:01 PM EDT [facility] Blood Venous blood / Unknown Port / Unknown 10/25/2024 1:47 PM EDT 10/25/2024 1:50 PM EDT us William Bowles MD LAB BLOOD ORDERABLES Final Resul t Performing Organization Address City/[facility]/ZIP Co de Phone Number [address] [place] [address], [place] * Lactate w/ Reflex (10/25/2024 1:47 PM EDT) LACTATE W/REFLEX 1.6 0.4 - 2.0 mmol/L 10/25/2024 2:08 PM EDT [facility] Blood Venous blood / Unknown Port / Unknown 10/25/2024 1:47 PM EDT 10/25/2024 1:50 PM EDT Narrative [facility] - 10/25/2024 2:08 PM EDT Result did not trigger repeat Lactate, re-order if needed. us William Bowles MD LAB BLOOD ORDERABLES Final Resul t Performing Organization Address [facility] Co de Phone Number [address] [place] [address], [place] * (ABNORMAL) Basic Metabolic Panel (10/25/2024 1:47 PM EDT) SODIUM 136 134 - 146 mmol/L 10/25/2024 2:04 PM EDT [facility] POTASSIUM 3.8 3.5 - 5.0 mmol/L 10/25/2024 2:04 PM EDT [facility] CHLORIDE 115(H) 98 - 109 mmol/L 10/25/2024 2:04 PM EDT [facility] CARBON DIOXIDE 17(L) 22 - 32 mmol/L 10/25/2024 2:04 PM EDT [facility] ANION GAP 4(L) 5 - 15 mmol/L 10/25/2024 2:04 PM EDT [facility] BLOOD UREA NITROGEN 25 5 - 27 mg/dL 10/25/2024 2:04 PM EDT [facility] CREATININE 1.47(H) 0.70 - 1.20 mg/dL 10/25/2024 2:04 PM EDT [facility] Comment:METHOD TRACEABLE TO IDMS STANDARD GLUCOSE 91 65 - 99 mg/dL 10/25/2024 2:04 PM EDT [facility] CALCIUM 7.7(L) 8.5 - 10.5 mg/dL 10/25/2024 2:04 PM EDT [facility] EGFR Non-Race Dependent 53(L) >=60 ml/min/1.7 3sq.m 10/25/2024 2:04 PM EDT [facility] Comment: eGFR not reported due to non-numeric value for Creatinine. Reported eGFR is based on the CKD-EPI 2020 equation that does not use a race coefficient. Blood Venous blood / Unknown Port / Unknown 10/25/2024 1:47 PM EDT 10/25/2024 1:50 PM EDT us William Bowles MD LAB BLOOD ORDERABLES Final Resul t [facility] [address] [facility] [place] [address], * (ABNORMAL) CBC auto differential (10/25/2024 1:47 PM EDT) WBC 12.8(H) 4 - 11 x10E9/L 10/25/2024 1:55 PM EDT [facility] RBC Count 3.89(L) 4.1 - 5.7 X10E12/L 10/25/2024 1:55 PM EDT [facility] Hemoglobin 12.5(L) 13 - 17 g/dL 10/25/2024 1:55 PM EDT [facility] Hematocrit 36.9(L) 39 - 50 % 10/25/2024 1:55 PM EDT [facility] MCV 95 80 - 100 fL 10/25/2024 1:55 PM EDT [facility] MCH 32.1 27 - 34 pg 10/25/2024 1:55 PM EDT [facility] MCHC 33.8 32 - 36 g/dL 10/25/2024 1:55 PM EDT [facility] RDW 13.7 11.5 - 15 % 10/25/2024 1:55 PM EDT [facility] Platelet Count 91(L) 150 - 450 X10E9/L 10/25/2024 1:55 PM EDT [facility] MPV 8.8 7 - 12 fL 10/25/2024 1:55 PM EDT [facility] Neutrophils Relative 81.2 % 10/25/2024 1:55 PM EDT [facility] Lymphocytes Relative 10.6 % 10/25/2024 1:55 PM EDT [facility] Monocytes Relative 7.2 % 10/25/2024 1:55 PM EDT [facility] Eosinophils Relative 0.7 % 10/25/2024 1:55 PM EDT [facility] Basophils Relative 0.3 % 10/25/2024 1:55 PM EDT [facility] Neutrophils Absolute (A) 10.4(H) 1.5 - 6.6 10*3/uL 10/25/2024 1:55 PM EDT [facility] Lymphocytes Absolute 1.4 1.0 - 3.5 10*3/uL 10/25/2024 1:55 PM EDT [facility] Monocytes Absolute 0.9 0.0 - 0.9 10*3/uL 10/25/2024 1:55 PM EDT [facility] Eosinophils Absolute 0.1 0.0 - 0.4 10*3/uL 10/25/2024 1:55 PM EDT [facility] Basophils Absolute 0.0 0.0 - 0.2 10*3/uL 10/25/2024 1:55 PM EDT [facility] Differential Type AUTOMATED DIFFERENTIAL 10/25/2024 1:55 PM EDT [facility] Blood Venous blood / Unknown Port / Unknown 10/25/2024 1:47 PM EDT 10/25/2024 1:50 PM EDT us William Bowles MD LAB BLOOD ORDERABLES Final Resul t [facility] [address] [place] [address], documented in this encounter Visit Diagnoses Diagnosis Scrotal abscess- Primary Other inflammatory disorder of male genital organs Epididymitis Unspecified orchitis and epididymitis documented in this encounter Administered Medications Inactive Administered Medications - up to 3 most recent administrations Medication Order MAR Action Action Date Dose Rate Site HYDROmorphone (PF) (DILAUDID) injection 1 mg 1 mg, intravenous, Once, On 10/25/24 at 1800, For 1 dose, If IV push, administer over over 2 to 3 minutes. Look-alike/sound-alike medication - verify indication for use. Given 10/25/2024 6:03 PM EDT 1 mg morphine injection 4 mg 4 mg, intravenous, Once, On 10/25/24 at 1335, For 1 dose, Look-alike/sound-alike medication - verify indication for use. Given 10/25/2024 1:48 PM EDT 4 mg piperacillin-tazobactam (ZOSYN) IVPB 4.5 g/100 mL in iso-osmotic dextrose (45 mg/mL premix) 4.5 g, intravenous, at 200 mL/hr, Administer over 0.5 Hours, Once, On 10/25/24 at 1415, For 1 dose, Indication: Skin and soft tissue infection New Bag 10/25/2024 3:02 PM EDT 4.5 g 200 mL/hr documented in this encounter Active and Recently Administered Medications Times are shown in EDT. Scheduled Medication Order 10/23/2024 10/24/2024 10/25/2024 HYDROmorphone (PF) (DILAUDID) injection 1 mg (COMPLETED) 1 mg, intravenous, Once, On 10/25/24 at 1800, For 1 dose, If IV push, administer over over 2 to 3 minutes. Look-alike/sound-alike medication - verify indication for use. 1803 (Given - Provid er: Ashley Cid RN) iodoform 1/4 X 5 -yard strip 1 each 1 each, topical, Once, On 10/25/24 at 1620, For 1 dose 1610 (Due)1620 (Due) 1622 (Handoff - Provider: Ashley Cid RN - Comment: given to provider) lidocaine (XYLOCAINE) 10 mg/mL (1 %) injection 50 mg 50 mg (5 mL), infiltration, Once, On 10/25/24 at 1620, For 1 dose 1605 (Due)1621 (Hand off - Provider: Ashley Cid RN - Comment: given to provider) morphine injection 4 mg (COMPLETED) 4 mg, intravenous, Once, On 10/25/24 at 1335, For 1 dose, Look-alike/sound-alike medication - verify indication for use. 1348 (Given - Provid er: Ashley Cid RN) piperacillin-tazobactam (ZOSYN) IVPB 4.5 g/100 mL in iso-osmotic dextrose (45 mg/mL premix) (COMPLETED) 4.5 g, intravenous, at 200 mL/hr, Administer over 0.5 Hours, Once, On 10/25/24 at 1415, For 1 dose, Indication: Skin and soft tissue infection 1502 (New Bag - Prov ider: Ashley Cid RN)1529 (Stop Bag - Provider: Ashley Cid RN) documented in this encounter Additional Health Concerns Assessment Noted Time PHQ-9 Depression Total Score: 0 12/27/19 23 1:44 PM EDT documented as of this encounter Care Teams Seat Mender Relationship Specialty Start Date End Date Estrella Medina APRN-SOFTWARE COMPUTER SPECIALIST [address] [id number] [address] PCP - General Nurse Practitioner 05/19/24 documented as of this encounter
--- OUTSIDE RECORDS SUMMARY | 2024-10-25 19:40 | XMS_ITS | Encounter Summary ---
Author Organization [employer] [facility] tem Address [id number] [address] [place] [address] Care Team Providers Care Travel Accommodation Inspector Name Role Phone Estrella Medina DYNAMO TENDER-RAMP LEAD Primary Care Pr ovider Reason for Referral * Misc (Routine) - Pending Review Specialty Diagnoses / Procedures Referred By Controsa t Referred To Contact Procedures Adult diet Sawyer Powell MD [address] [place] [address], [address] [place] [address] Phone: tel: fax: Referral ID Status Reason Start Date Expiration Date V isits Requested Visits Authorized [id number] Pending Review 10/28/2024 10/28/2025 1 1 * Misc (Routine) - Pending Review Specialty Diagnoses / Procedures Referred By Grisel escobedo Referred To Contact Procedures Discharge Follow-Up Sawyer Powell MD [address] [facility], [address] [place] [address] Phone: tel: fax: Referral ID Status Reason Start Date Expiration Date V isits Requested Visits Authorized [id number] Pending Review 10/28/2024 10/28/2025 1 1 * Misc (Routine) - Pending Review Specialty Diagnoses / Procedures Referred By Contac t Referred To Contact Diagnoses Scrotal abscess Procedures Follow-up with primary care provider Sawyer Powell MD [address] [facility], [address] [place] [address] Phone: tel: fax: Referral ID Status Reason Start Date Expiration Date V isits Requested Visits Authorized [id number] Pending Review 10/28/2024 10/28/2025 1 1 * Misc (Routine) - Pending Review Specialty Diagnoses / Procedures Referred By Contac t Referred To Contact Procedures Adult diet Sawyer Powell MD [address] [facility], [address] [place] [address] Phone: tel: fax: Referral ID Status Reason Start Date Expiration Date V isits Requested Visits Authorized [id number] Pending Review 10/28/2024 10/28/2025 1 1 Reason for Visit * Reason Comments Testicle Pain * Auth/Cert Specialty Diagnoses / Procedures Referred By Contac t Referred To Contact Diagnoses Scrotal abscess Jyotsna Jose MD [address] [facility], [address] [place] [address] Phone: tel: fax: Referral ID Status Reason Start Date Expiration Date Visits Re quested Visits Authorized [id number] 1 1 Encounter Details Date Type Department Care Team (Late st Contact Info) Description 10/25/2024 7:40 PM EDT - 10/28/2024 8:04 PM EDT Hospital Encounter [facility] Acute [address] [place] [address] Castro, DO Jaren [address] [facility], [address] [place], [place] [id number] Jyotsna Jose MD [address] [facility] [place] [address] Ishan Trevino MD [address] [place] [address] Scrotal abscess (Primary Dx) Discharge Disposition: Halfway Facility-Medicare Cert Social History Tobacco Use Types Packs/Day Years Used Date Smoking Tobacco: Never Smokeless Tobacco: Never Alcohol Use Standard Drinks/Week Comments Yes 28 (1 standard drink = 0.6 oz pu re alcohol) every other day [facility] Utilities Answer Date Recorded In the past 12 months has [employer] electric, gas, oil, or water [employer] threatened to shut off services in your [...] often do you attend chur ch or denominational services? Never 12/26/2022 Do you belong to any clubs o r organizations such as orthodox groups, unions, fraternal or athletic groups, or [...] Answer Date Recorded Total Score 0 10/26/2024 [employer] - Occupational Stress [...] Recorded Do you need help finding a [facility] career center and/or a training program? [...] Sign Reading Time Taken Comments Blood Pressure 150/103 10/28/2024 5:12 PM EDT RN notified Pulse 79 10/28/2024 5:12 PM EDT Temperature 36.3 C (97.4 F) 10/28/2024 5:12 PM EDT Respiratory Rate 16 10/28/2024 5:12 PM EDT Oxygen Saturation 95% 10/28/2024 5:1 2 PM EDT Inhaled Oxygen Concentration - - Weight 115.4 kg (254 lb 6.6 oz) 10/26/2024 1:00 AM EDT Height 182.9 cm (6') 10/26/2024 1:00 AM EDT Body Mass Index 34.5 10/26/2024 1:00 AM EDT documented in this encounter Functional Status * Question Answer Date of Assessment Author Functional Status Independent 10/26/2024 11:24 AM EDT Anastacia Bartlett RN * Audit-C Score Answer Date of Assessment Author 8 10/26/2024 10:08 AM Mony Simeon RN * Intimate Partner Violence Question Answer Date of Assessment Author Within the last year, have y ou been humiliated or emotionally abused in other ways by your partner or ex-partner? No 10/26/2024 10:09 AM Nilo Adams RN Within the last year, have y ou been afraid of your partner or ex-partner? No 10/26/2024 10:09 AM Linden Adams RN Within the last year, have y ou been raped or forced to have any kind of sexual activity by your partner or ex-partner? No 10/26/2024 10:09 AM Mony Simeon RN Within the last year, have y ou been kicked, hit, slapped, or otherwise physically hurt by your partner or ex-partner? No 10/26/2024 10:09 AM Mony Simeon RN * Question Answer Date of Assessment Author Q1: How often do you have a drink containing alcohol? 4 or more times a week 10/26/2024 10:08 AM Mony Adams RN Q2: How many drinks containing alcohol do you have on a typical day when you are drinking? 3 or 4 10/26/2024 10:08 AM Mony Adams RN Q3: How often do you have six or more drinks on one occasion? Weekly 10/26/2024 10:08 AM EDT Elliott, Mony, RN documented as of this encounter Mental Status * Question Answer Entry Date Author Overall Cognitive Status WFL 10/27/2024 10:51 AM EDT Ariella Gonsales OTR/L documented in this encounter Discharge Summaries * Sawyer Powell MD - 10/28/2024 1:18 PM EDT Inpatient Discharge Summary BRIEF OVERVIEW Admitting Provider: Jyotsna Jose MD Discharge Provider: Ishan Trevino MD Primary Care Physician at Discharge: Estrella Medina, [phone] Admission Date: 10/25/2024 Discharge Date: No discharge date for patient encounter. Primary Discharge Diagnosis Right-sided scrotal abscess status post drainage by Urology and [facility] Secondary Discharge Diagnosis Acute watery diarrhea Thrombocytopenia, platelets 91, appears chronic CKD4 Chronic Hepatitis C Paroxysmal Atrial fibrillation CAD, ischemic cardiomyopathy s/p ICD Hypoglycemic episode Chronic Alcohol Use Disorder Hypertension Discharge Disposition Institution Not Defined Elsewhere Code Status at Discharge: Full Active Issues Requiring Follow-up Issue: Scrotal abscess Responsible Individual: PCP What is Needed: Follow up appointment Follow-up Appointments Arranged: No Issue: Scrotal abscess Responsible Individual: Urology What is Needed: Follow up appointment Follow-up Appointments Arranged: No Outpatient Follow-Up No future appointments. Test Results Pending at Discharge DETAILS OF HOSPITAL STAY Presenting Problem/History of Present Illness Scrotal abscess [N49.2] Hospital Course Ovidio Coulter is a 64 yo male transferred here from [facility] for right sided scrotal abscess. The pain has been ongoing for 3 days in the right testicle. Urology drained the abscess and started him on Zosyn. Due to his PMH including CAD(on Plavix), CKD IV (baseline creatinine 1.6-2), CHF (EF 30- 35%), atrial fibrillation (2022), Hep C, he was admitted to Medicine. Patient reports that he thinks a bug crawled up his pant, which caused his infection. Doppler showed increased blood flow in the epididymis, secondary to epididymal orchitis, R. Hydrocele with debris. Urine and blood cultures are still pending. UA does not show nitrites or leukocyte esterase. He has a history of inguinal hernias. He previously had an episode of epididymitis in 2016 managed with ciprofloxacin. Pertinent negative history includes no dysuria, urgency, hematuria, retention symptoms. PSA in 2022was elevated at 8.95. The patient was treated in the hospital with 4 days of IV Zosyn and given his improvement he was deemed appropriate for discharge and we discharged him on 3 additional days with levofloxacin and metronidazole. Of note the patient underwent right hemiscrotum incisional and drainage with packing per Urology. Procedure went well without complications and incision edges looked okay. During his hospital stay the patient developed diarrhea and given that he was treated with antibiotics, we opted to test for Clostridium difficile which came back positive. So after curbside eating with our Infectious Disease team we also started him on oral vancomycin and discharged him on a totalof 13 days after discharge. Physical Exam at Discharge Discharge Condition: good Pulse: 96 Resp: 16 BP: 114/83 Temp: 36.4 ??C (97.6 ??F) Weight: 115.4 kg (254 lb 6.6 oz) Physical Exam HENT: Mouth/Throat: Mouth: Mucous membranes are dry. Pharynx: Oropharynx is clear. Eyes: Extraocular Movements: Extraocular movements intact. Conjunctiva/sclera: Conjunctivae normal. Cardiovascular: Rate and Rhythm: Normal rate and regular rhythm. Heart sounds: Normal heart sounds. Pulmonary: Breath sounds: Normal breath sounds. Abdominal: Tenderness: There is no abdominal tenderness. Musculoskeletal: Right lower leg: No edema. Left lower leg: No edema. Skin: Comments: Scrotal incision looks intact. No signs of infection or bleeding. Neurological: General: No focal deficit present. Mental Status: He is alert and oriented to person, place, and time. Mental status is at baseline. Psychiatric: Mood and Affect: Mood normal. Labs Results from last 7 days Lab Units 10/28/24 0512 10/27/24 0636 10/26/24 0709 10/25/24 1347 WBC x10E9/L 5.4 7.9 10.0 12.8* HEMOGLOBIN g/dL 12.1* 11.7* 11.9* 12.5* HEMATOCRIT % 36.0* 34.8* 34.7* 36.9* PLATELETS X10E9/L 109* 101* -- 91* Results from last 7 days Lab Units 10/28/24 0512 10/27/24 0637 10/26/24 0709 INR 1.2 1.2 1.2 Results from last 7 days Lab Units 10/28/24 0512 10/28/24 0145 10/27/24 1819 10/27/24 0636 10/26/24 0830 10/26/24 0709 SODIUM mmol/L 139 -- -- 137 -- 139 POTASSIUM mmol/L 3.4* -- 3.8 3.5 -- 4.1 CHLORIDE mmol/L 108 -- -- 109 -- 109 CO2 mmol/L 23 -- -- 20* -- 17* BUN mg/dL 35* -- -- 33* -- 27 CREATININE mg/dL 1.91* -- -- 2.05* -- 1.71* CALCIUM mg/dL 8.0* -- -- 7.9* -- 7.7* PHOSPHORUS mg/dL -- 1.8* 1.5* 1.4* -- 2.8 MAGNESIUM mg/dL 1.8 -- 2.1 1.8 < > 1.4* < > = values in this interval not displayed. Results from last 7 days Lab Units 10/28/24 0512 10/27/24 0636 10/26/24 0709 ALBUMIN g/dL 2.5* 2.4* 2.4* PROTEIN TOTAL g/dL 6.3 6.1 6.3 ALT U/L 17 14 18 AST U/L 36 31 42* ALK PHOS U/L 71 64 69 Results from last 7 days Lab Units 10/28/24 0512 10/27/24 0636 10/26/24 1743 BEDSIDE GLUCOSE mg/dL -- -- 110* GLUCOSE mg/dL 88 95 -- Lab Results Component Value Date HGBA1C 4.4 10/25/2024 Lab Results Component Value Date WBCU 255 (H) 03/13/2024 SPECIFICGRA 1.025 10/25/2024 LEUKOCYTE Negative 10/25/2024 NITRITEN Negative 10/25/2024 PHNUR 5.5 10/25/2024 PROTEINNUR >=300 mg/dL (A) 10/25/2024 KETONESNUR Negative 10/25/2024 UROBILINOGEN 1.0 E.U./dL 10/25/2024 BLOODHGBNU Large (A) 10/25/2024 Imaging Ultrasound scrotum for TORSION with duplex Result Date: 10/25/2024 CLINICAL INFORMATION: tender swollen red testicle. TECHNIQUE: Real-time sonographic evaluation of the scrotum and testes was performed with montemayor scale and color flow imaging. Real time montemayor scale, color flow imaging and duplex spectral Doppler waveform analysis evaluation was performed of the majorarterial inflow and venous outflow structures of the testicles with arterial and venous spectral waveforms obtained and reviewed in view of the clinical history of tender swollen red testicle . Duplex spectral Doppler document arterial and venous spectral waveforms documented within the major arterial inflow and venous outflow of both testicles. Arterial and venous Doppler duplex spectral waveform s were evaluated. COMPARISON: 03/28/1960 FINDINGS: Right testicle [...] scrotum surrounded by scrotal wall thickening and incr eased Doppler flow. Finding is most consistent for an abscess measurements are given above * Left scrotal wall thickening and induration with increased Doppler flow but no definite fluid collection on the left side of the scrotum Finalized by Grzegorz Mullen MD on 10/25/2024 3:43 PM Last Echo Echo limited W/ contrast Result Date: 02/18/2024 Left Ventricle: Left ventricle is mildly dilated. There is mild concentric increased wall thickness/hypertrophy. Systolic function is moderately to severely decreased with an ejection fraction of 30-35%. See wall score diagram for wall motion abnormalities. Right Ventricle: Systolic function is lownormal. Aortic Valve: The aortic valve is trileaflet. Mitral Valve: Mitral valve structure is normal. Tricuspid Valve: Tricuspid valve appears to be normal. Echo complete W/O contrast Result Date: 08/27/2023 Left Ventricle: Systolic function is moderately to severely decreased with an ejection fraction of 30-35%. The quantitative EF by 2D [place] biplane is 31%. Mildly dilated left ventricle with moderate to severely depressed left ventricular systolic function. Mild concentric left ventricular hypertrophy. Dilated right ventricle. Biatrial enlargement Mild mitral regurgitation Ruoo-kf-cibszvsq tricuspid regurgitation with Doppler evidence of mild elevation right-sided pressures Echo complete W/O contrast Result Date: 01/03/2023 Left Ventricle: There is mild to moderate concentric increased wall thickness/hypertrophy. Systolicfunction is mildly to moderately decreased with an ejection fraction of 40-45%. The quantitative EFby 2D [place] biplane is 43%. See wall score diagram for wall motion abnormalities. Right Ventricle: Right ventricular size appears normal. Systolic function is normal. Normal tricuspid annular planesystolic excursion. No significant valvular stenosis or regurgitation. Cultures Microbiology Results Procedure Component Value Units Date/Time Wound culture [[id number]] Collected: 10/25/24 1623 Specimen: Swab from Testis, Right Updated: 10/27/24 1031 CULTURE RESULTS NO GROWTH 2 DAYS GRAM STAIN >25 White Blood Cells/LPF 0 Squamous Epithelial Cells/LPF No organisms seen Medication List START taking these medications Instructions Last Dose Given Next Dose Due clopidogreL 75 mg tablet Commonly known as: PLAVIX Take 1 tablet (75 mg total) by mouth in the morning for 120 days. levoFLOXacin 750 mg tablet Commonly known as: LEVAQUIN Start taking on: October 29, 2024 Take 1 tablet (750 mg total) by mouth in the morning for 3 days. metroNIDAZOLE 500 mg tablet Commonly known as: FLAGYL Take 1 tablet (500 mg total) by mouth 3 (three) times a day for 3 days. vancomycin 50 mg/mL oral solution Commonly known as: VANCOCIN Start taking on: October 29, 2024 Take 2.5 mL (125 mg total) by mouth every 6 (six) hours for 13 days. CONTINUE taking these medications Instructions Last Dose Given Next Dose Due apixaban 5 mg tablet Commonly known as: ELIQUIS Take 1 tablet (5 mg total) by mouth in the morning and 1 tablet (5 mg total) before bedtime. dapagliflozin propanediol 10 mg tablet Commonly known as: FARXIGA Take 1 tablet (10 mg total) by mouth in the morning. ENTRESTO 97-103 mg tablet Generic drug: sacubitriL-valsartan Take 1 tablet by mouth in the morning and 1 tablet before bedtime. ezetimibe 10 mg tablet Commonly known as: ZETIA Take 1 tablet (10 mg total) by mouth in the morning. hydrOXYzine 25 mg tablet Commonly known as: ATARAX Take 1 tablet (25 mg total) by mouth every 6 (six) hours as needed. isosorbide mononitrate 30 mg 24 hr tablet Commonly known as: IMDUR Take 1 tablet (30 mg total) by mouth daily. wnpvgdkx-bjy-zckwybg gluconate 9 mg iron/15 mL liquid Commonly known as: CENTRUM Take 15 mL by mouth in the morning. nitroglycerin 0.4 MG SL tablet Commonly known as: NITROSTAT Place 1 tablet (0.4 mg total) under the tongue every 5 (five) minutes as needed for chest pain. omeprazole 20 mg capsule Commonly known as: PriLOSEC Take 1 capsule (20 mg total) by mouth daily. QUEtiapine 25 mg tablet Commonly known as: SEROquel Take 0.5 tablets (12.5 mg total) by mouth nightly. spironolactone 25 mg tablet Commonly known as: ALDACTONE take 1 tablet by mouth every morning Where to Get Your Medications These medications were sent to [facility] [address] [place] [address] [place] [address] [address] clopidogreL 75 mg tablet levoFLOXacin 750 mg tablet metroNIDAZOLE 500 mg tablet vancomycin 50 mg/mL oral solution Cosigned by Ishan Trevino MD at 10/28/2024 2:41 PM EDT Associated attestation - Ishan Trevino MD - 10/28/2024 2:41 PM EDT ATTENDING ATTESTATION I personally examined the patient on rounds with the resident. I repeated the velazquez components of theexam. I confirm the note and agree with the assessment and plan. Please note there may be additional comments below. Discharge process 41 mins documented in this encounter Discharge Instructions * Discharge Instructions* Sawyer Powell MD - 10/28/2024 1:10 PM EDT A.) Listed below are the physicians you need to confirm you have appointments with in order to continue the care we have provided to you in the hospital: Please follow up with PCP within 1 week. Please follow up with Urology within 4 weeks. B.) Please take your medications as prescribed on your discharge instructions We will be discharging you on antibiotic called Levaquin that you will take for 3 days for your scrotal infection completing a course of total of 7 days including the days that you take antibiotic inthe hospital. In addition you tested positive for a bowel infection called C diff we will be giving you an antibiotic called vancomycin that you will be taking for a total of 13 days from the day of your discharge. C.) Please view all pages of this sheet to ensure you are receiving all your discharge instructions. Some important information from nursing and the hospital is also attached. D.) Please present to the hospital if you have any new chest pain, shortness of breath, fever, chills, headache, palpitations, change in bowel or urinary habits, nausea/vomiting, abdominal pain, swelling in hands or feet, or if you have any other complaints. documented in this encounter Medications at Time [...] kidney disease) stage 4, GFR 15-29 ml/min ([facility]) Take 1 tablet (10 mg total) by [...] tablet (30 mg total) by mouth daily. cufzccom-uqy-xyud ous gluconate (CENTRUM) 9 mg iron/15 mL [...] (ALDACTONE) 25 mg tabletIndications :Cardiomyopathy, unspecified type ([facility]),Congest tunde heart failure, unspecified HF chronicity, unspecified heart failure type ([facility]) take 1 tablet by mouth every morning [...] for 3 days. 9 tablet 10/28/2024 10/31/2024 documented as of this encounter Progress Notes * Mark Anthony Segovia RPH - 10/27/2024 3:18 PM EDT [facility] Department of Pharmacy Pharmacist to Physician Communication The dose of piperacillin-tazobactam for SSTI has been changed to 3.375 grams infused every 8 hours by extended infusion over 4 hours per the [facility] approved extended-infusion beta-lactam dosing policy, based on an estimated creatinine clearance is 39.4 mL/min (A) (by C-G formula based on SCr of 2.05 mg/dL (H)). Thank you, Mark Anthony Segovia, PharmD, [facility] * Brenda Fisher RPH - 10/27/2024 2:45 PM EDT [facility] Department of Pharmacy Pharmacist to Physician Communication The dose of levofloxacin for scrotal abscess has been changed to 500 mg every 48 hours per the [facility] approved renal dosing guidelines, based on an estimated creatinine clearance is 39.4 mL/min (A) (by C-G formula based on SCr of 2.05 mg/dL (H)). Thank you, Brenda Fisher RPH * João Garcia MD - 10/27/2024 2:17 PM EDT DAILY PROGRESS NOTE IMS-4 This is a progress note for Ovidio Coulter, a 64 y.o. who has been admitted for 2 midnights DATE OF ADMISSION 10/25/2024 7:40 PM HPI/HOSPITAL COURSE: Ovidio Coulter is a 64 yo male transferred here from [facility] for right sided scrotal abscess. The pain has been ongoing for 3 days in the right testicle. Urology drained the abscess and started him on Zosyn. Due to his PMH including CAD(on Plavix), CKD IV (baseline creatinine 1.6-2), CHF (EF 30- 35%), atrial fibrillation (2022), Hep C, he was admitted to Medicine. Patient reports that he thinks a bug crawled up his pant, which caused his infection. Doppler showed increased blood flow in the epididymis, secondary to epididymal orchitis, R. Hydrocele with debris. Urine and blood cultures are still pending. UA does not show nitrites or leukocyte esterase. He has a history of inguinal hernias. He previously had an episode of epididymitis in 2016 managed with ciprofloxacin. Pertinent negative history includes no dysuria, urgency, hematuria, retention symptoms. PSA in 2022was elevated at 8.95. SUBJECTIVE: Patient was examined bedside. He endorses having 8 bowel movements overnight. States that they werefor watery and normal in color. Denies any blood or melena. No nausea or vomiting. Patient was tolerating oral diet. Denies any chest pain, shortness of breath, abdominal pain. Awaiting SNF acceptance. C diff stool panel awaiting. OBJECTIVE: Vital Signs Temp: [36.2 ??C (97.2 ??F)-36.7 ??C (98 ??F)] 36.3 ??C (97.4 ??F) Pulse: [71-81] 71 Resp: [16-18] 17 BP: (109-138)/(69-95) 134/86 SpO2: [95 %-100 %] 98 % O2 Device: None (Room air) O2 Flow Rate (L/min): [0 L/min] 0 L/min Weight: Admission weight: 115.4 kg (254 lb 6.6 oz) Wt Readings from Last 3 Encounters: 10/26/24 115.4 kg (254 lb 6.6 oz) 10/25/24 112.9 kg (249 lb) 08/01/24 115.7 kg (255 lb) Input/Output: Intake/Output Summary (Last 24 hours) at 10/27/2024 1417 Last data filed at 10/27/2024 1407 Gross per 24 hour Intake 644.1 ml Output 1275 ml Net -630.9 ml Physical Exam Physical Exam HENT: Mouth/Throat: Mouth: Mucous membranes are dry. Pharynx: Oropharynx is clear. Eyes: Extraocular Movements: Extraocular movements intact. Conjunctiva/sclera: Conjunctivae normal. Cardiovascular: Rate and Rhythm: Normal rate and regular rhythm. Heart sounds: Normal heart sounds. Pulmonary: Breath sounds: Normal breath sounds. Abdominal: Tenderness: There is no abdominal tenderness. Musculoskeletal: Right lower leg: No edema. Left lower leg: No edema. Skin: Comments: Scrotal incision looks intact. No signs of infection or bleeding. Neurological: General: No focal deficit present. Mental Status: He is alert and oriented to person, place, and time. Mental status is at baseline. Psychiatric: Mood and Affect: Mood normal. Labs Results from last 7 days Lab Units 10/27/24 0636 10/26/24 0709 10/25/24 1347 WBC x10E9/L 7.9 10.0 12.8* HEMOGLOBIN g/dL 11.7* 11.9* 12.5* HEMATOCRIT % 34.8* 34.7* 36.9* PLATELETS X10E9/L 101* -- 91* Results from last 7 days Lab Units 10/27/24 0637 10/26/24 0709 INR 1.2 1.2 Results from last 7 days Lab Units 10/27/24 0636 10/26/24 2159 10/26/24 0830 10/26/24 0709 10/26/24 0709 10/25/24 1347 SODIUM mmol/L 137 -- -- -- 139 136 POTASSIUM mmol/L 3.5 -- -- -- 4.1 3.8 CHLORIDE mmol/L 109 -- -- -- 109 115* CO2 mmol/L 20* -- -- -- 17* 17* BUN mg/dL 33* -- -- -- 27 25 CREATININE mg/dL 2.05* -- -- -- 1.71* 1.47* CALCIUM mg/dL 7.9* -- -- -- 7.7* 7.7* PHOSPHORUS mg/dL 1.4* -- -- -- 2.8 -- MAGNESIUM mg/dL 1.8 2.0 1.4* < > 1.4* -- < > = values in this interval not displayed. Results from last 7 days Lab Units 10/27/24 0636 10/26/24 0709 ALBUMIN g/dL 2.4* 2.4* PROTEIN TOTAL g/dL 6.1 6.3 ALT U/L 14 18 AST U/L 31 42* ALK PHOS U/L 64 69 Results from last 7 days Lab Units 10/27/24 0636 10/26/24 1743 10/26/24 1124 BEDSIDE GLUCOSE mg/dL -- 110* 138* GLUCOSE mg/dL 95 -- -- Lab Results Component Value Date HGBA1C 4.4 10/25/2024 Lab Results Component Value Date WBCU 255 (H) 03/13/2024 SPECIFICGRA 1.025 10/25/2024 LEUKOCYTE Negative 10/25/2024 NITRITEN Negative 10/25/2024 PHNUR 5.5 10/25/2024 PROTEINNUR >=300 mg/dL (A) 10/25/2024 KETONESNUR Negative 10/25/2024 UROBILINOGEN 1.0 E.U./dL 10/25/2024 BLOODHGBNU Large (A) 10/25/2024 Imaging Ultrasound scrotum for TORSION with duplex Result Date: 10/25/2024 CLINICAL INFORMATION: tender swollen red testicle. TECHNIQUE: Real-time sonographic evaluation of the scrotum and testes was performed with montemayor scale and color flow imaging. Real time montemayor scale, color flow imaging and duplex spectral Doppler waveform analysis evaluation was performed of the majorarterial inflow and venous outflow structures of the [...] testicle 3.0 x 1.6 x 1.9 cm. Ther e is increased Doppler flow in the epididymis [...] scrotum surrounded by scrotal wall thickening and incr eased Doppler flow. Finding is most consistent for an abscess measurements are given above * Left scrotal wall thickening and induration with increased Doppler flow but no definite fluid collection on the left side of the scrotum Finalized by Grzegorz Mullen MD on 10/25/2024 3:43 PM Cultures Microbiology Results Procedure Component Value Units Date/Time Wound culture [[id number]] Collected: 10/25/24 1623 Specimen: Swab from Testis, Right Updated: 10/27/24 1031 CULTURE RESULTS NO GROWTH 2 DAYS GRAM STAIN >25 White Blood Cells/LPF 0 Squamous Epithelial Cells/LPF No organisms seen HOSPITAL MEDICATIONS: Scheduled: bumetanide, 2 mg, oral, BID AC clopidogreL, 75 mg, oral, Daily metoprolol succinate XL, 50 mg, oral, Daily piperacillin-tazobactam (ZOSYN) IV, 3.375 g, intravenous, Q8H QUEtiapine, 12.5 mg, oral, Nightly sacubitriL-valsartan, 1 tablet, oral, BID sodium chloride, 3 mL, intravenous, Q12H SIXTO spironolactone, 25 mg, oral, Daily Infusions: dextrose 5 % in water, 100 mL/hr sodium chloride 0.9 %, 20 mL/hr As Needed: acetaminophen calcium gluconate calcium gluconate calcium gluconate dextrose dextrose 5 % in water dextrose 50 % in water (D50W) glucagon (human recombinant) hydrALAZINE magnesium sulfate magnesium sulfate melatonin polyethylene glycol potassium chloride OR potassium chloride OR potassium chloride IV (Adult) prochlorperazine sennosides-docusate sodium sodium phosphate IV OR sodium phosphate IV - central line OR sod phos di, mono-K phos mono sodium chloride sodium chloride sodium chloride 0.9 % ALLERGIES: No Known Allergies ASSESSMENT: Right-sided scrotal abscess status post drainage by Urology and [facility] PSA in 2022 was 8.95; consider following up outpatient Starting Levaquin and metronidazole Follow up wound cultures, sensitivities to narrow antibiotics Restart anticoagulation once Urology approves Acute watery diarrhea Patient had 8x BM overnight. Awaiting C.diff panel Patient was already on oral antibiotics. Thrombocytopenia, platelets 91, appears chronic Pending platelets today Trend electrolytes CKD4 Baseline creatinine 1.6-2; creatinine today 1.71 Bumex 2 mg bid re-started today Spironolactone started today Chronic Hepatitis C Paroxysmal Atrial fibrillation Restart home Eliquis when Urology gives clearance CAD, ischemic cardiomyopathy s/p ICD Clopidogrel resumed today (10/26/24) Hypoglycemic episode Glucose dropped to 44, increased to 138 after food intake. Continue to monitor; HbA1c 4.4 (10/25/24) Chronic Alcohol Use Disorder Give Thiamine with glucose Hypertension Metoprolol 50mg Daily BP range 111/72- 167/104 DVT prophylaxis: Eliquis Diet: Regular Fluids: none Code Status: full code The patient was seen and discussed with attending Dr. Jose. This note was created with the assistance of a speech-recognition program. Every effort was made toensure accuracy; however, inadvertent computerized corporate training manager errors may be present. Katerine Acosta, MS3 João Garcia MD PGY-1 Internal Medicine Resident 10/27/24 2:17 PM Cosigned by Ishan Trevino MD at 10/28/2024 2:32 PM EDT Associated attestation - Ishan Trevino MD - 10/28/2024 2:32 PM EDT ATTENDING ATTESTATION I personally examined the patient on rounds with the resident. I repeated the velazquez components of theexam. I confirm the note and agree with the assessment and plan. Please note there may be additional comments below. * João Garcia MD - 10/26/2024 1:01 PM EDT DAILY PROGRESS NOTE IMS-4 This is a progress note for Ovidio Coulter, a 64 y.o. who has been admitted for 1 midnights DATE OF ADMISSION 10/25/2024 7:40 PM HPI/HOSPITAL COURSE: Ovidio Coulter is a 64 yo male transferred here from [facility] for right sided scrotal abscess. The pain has been ongoing for 3 days in the right testicle. Urology drained the abscess and started him on Zosyn. Due to his PMH including CAD(on Plavix), CKD IV (baseline creatinine 1.6-2), CHF (EF 30- 35%), atrial fibrillation (2022), Hep C, he was admitted to Medicine. Patient reports that he thinks a bug crawled up his pant, which caused his infection. Doppler showed increased blood flow in the epididymis, secondary to epididymal orchitis, R. Hydrocele with debris. Urine and blood cultures are still pending. UA does not show nitrites or leukocyte esterase. He has a history of inguinal hernias. He previously had an episode of epididymitis in 2016 managed with ciprofloxacin. Pertinent negative history includes no dysuria, urgency, hematuria, retention symptoms. PSA in 2022was elevated at 8.95. SUBJECTIVE: The patient today reports that he is doing better. There continues to be drainage from the incisionsite. This morning his blood glucose dropped to 36. After eating crackers and peanut butter, it is up now to 138. The patient was seen and examined. Afebrile and hemodynamically stable. No acute events overnight. No fever, chills, chest pain, shortness of breath, cough, abdominal pain, nausea, vomiting, or diarrhea. OBJECTIVE: Vital Signs Temp: [36.4 ??C (97.6 ??F)-36.8 ??C (98.2 ??F)] 36.6 ??C (97.8 ??F) Pulse: [86-105] 88 Resp: [17-20] 17 BP: (111-167)/(72-126) 124/86 SpO2: [95 %-100 %] 97 % O2 Device: None (Room air) O2 Flow Rate (L/min): [0 L/min] 0 L/min Weight: Admission weight: 115.4 kg (254 lb 6.6 oz) Wt Readings from Last 3 Encounters: 10/26/24 115.4 kg (254 lb 6.6 oz) 10/25/24 112.9 kg (249 lb) 08/01/24 115.7 kg (255 lb) Input/Output: Intake/Output Summary (Last 24 hours) at 10/26/2024 1301 Last data filed at 10/26/2024 1126 Gross per 24 hour Intake 750 ml Output 850 ml Net -100 ml Physical Exam Physical Exam HENT: Mouth/Throat: Mouth: Mucous membranes are dry. Pharynx: Oropharynx is clear. Eyes: Extraocular Movements: Extraocular movements intact. Conjunctiva/sclera: Conjunctivae normal. Cardiovascular: Rate and Rhythm: Normal rate and regular rhythm. Heart sounds: Normal heart sounds. Pulmonary: Breath sounds: Normal breath sounds. Abdominal: Tenderness: There is no abdominal tenderness. Musculoskeletal: Right lower leg: No edema. Left lower leg: No edema. Skin: Comments: Scrotal incision looks intact. No signs of infection or bleeding. Neurological: General: No focal deficit present. Mental Status: He is alert and oriented to person, place, and time. Mental status is at baseline. Psychiatric: Mood and Affect: Mood normal. Labs Results from last 7 days Lab Units 10/26/24 0709 10/25/24 1347 WBC x10E9/L 10.0 12.8* HEMOGLOBIN g/dL 11.9* 12.5* HEMATOCRIT % 34.7* 36.9* PLATELETS X10E9/L -- 91* Results from last 7 days Lab Units 10/26/24 0709 INR 1.2 Results from last 7 days Lab Units 10/26/24 0709 10/25/24 1347 SODIUM mmol/L 139 136 POTASSIUM mmol/L 4.1 3.8 CHLORIDE mmol/L 109 115* CO2 mmol/L 17* 17* BUN mg/dL 27 25 CREATININE mg/dL 1.71* 1.47* CALCIUM mg/dL 7.7* 7.7* PHOSPHORUS mg/dL 2.8 -- MAGNESIUM mg/dL 1.4* -- Results from last 7 days Lab Units 10/26/24 0709 ALBUMIN g/dL 2.4* PROTEIN TOTAL g/dL 6.3 ALT U/L 18 AST U/L 42* ALK PHOS U/L 69 Results from last 7 days Lab Units 10/26/24 1124 10/26/24 0913 10/26/24 0837 BEDSIDE GLUCOSE mg/dL 138* 87 44* Lab Results Component Value Date HGBA1C 4.4 10/25/2024 Lab Results Component Value Date WBCU 255 (H) 03/13/2024 SPECIFICGRA 1.025 10/25/2024 LEUKOCYTE Negative 10/25/2024 NITRITEN Negative 10/25/2024 PHNUR 5.5 10/25/2024 PROTEINNUR >=300 mg/dL (A) 10/25/2024 KETONESNUR Negative 10/25/2024 UROBILINOGEN 1.0 E.U./dL 10/25/2024 BLOODHGBNU Large (A) 10/25/2024 Imaging Ultrasound scrotum for TORSION with duplex Result Date: 10/25/2024 CLINICAL INFORMATION: tender swollen red testicle. TECHNIQUE: Real-time sonographic evaluation of the scrotum and testes was performed with montemayor scale and color flow imaging. Real time montemayor scale, color flow imaging and duplex spectral Doppler waveform analysis evaluation was performed of the majorarterial inflow and venous outflow structures of the [...] testicle 3.0 x 1.6 x 1.9 cm. Ther e is increased Doppler flow in the epididymis [...] scrotum surrounded by scrotal wall thickening and incr eased Doppler flow. Finding is most consistent for an abscess measurements are given above * Left scrotal wall thickening and induration with increased Doppler flow but no definite fluid collection on the left side of the scrotum Finalized by Grzegorz Mullen MD on 10/25/2024 3:43 PM Cultures Microbiology Results Procedure Component Value Units Date/Time Wound culture [[id number]] Collected: 10/25/24 1623 Specimen: Swab from Testis, Right Updated: 10/25/24 2341 GRAM STAIN >25 White Blood Cells/LPF 0 Squamous Epithelial Cells/LPF No organisms seen HOSPITAL MEDICATIONS: Scheduled: bumetanide, 2 mg, oral, BID AC clopidogreL, 75 mg, oral, Daily metoprolol succinate XL, 50 mg, oral, Daily piperacillin-tazobactam (ZOSYN) IV, 3.375 g, intravenous, Q8H QUEtiapine, 12.5 mg, oral, Nightly sacubitriL-valsartan, 1 tablet, oral, BID sodium chloride, 3 mL, intravenous, Q12H SIXTO spironolactone, 25 mg, oral, Daily Infusions: dextrose 5 % in water, 100 mL/hr sodium chloride 0.9 %, 20 mL/hr As Needed: acetaminophen calcium gluconate calcium gluconate calcium gluconate dextrose dextrose 5 % in water dextrose 50 % in water (D50W) glucagon (human recombinant) hydrALAZINE magnesium sulfate magnesium sulfate melatonin polyethylene glycol potassium chloride OR potassium chloride OR potassium chloride IV (Adult) prochlorperazine sennosides-docusate sodium sodium phosphate IV OR sodium phosphate IV - central line OR sod phos di, mono-K phos mono sodium chloride sodium chloride sodium chloride 0.9 % ALLERGIES: No Known Allergies ASSESSMENT: Right-sided scrotal abscess status post drainage by Urology and [facility] PSA in 2022 was 8.95; consider following up outpatient Continue Zosyn day 2. Follow up wound cultures, sensitivities to narrow antibiotics Restart anticoagulation once Urology approves Thrombocytopenia, platelets 91, appears chronic Pending platelets today Trend electrolytes CKD4 Baseline creatinine 1.6-2; creatinine today 1.71 Bumex 2 mg bid re-started today Spironolactone started today Chronic Hepatitis C Paroxysmal Atrial fibrillation Restart home Eliquis when Urology gives clearance CAD, ischemic cardiomyopathy s/p ICD Clopidogrel resumed today (10/26/24) Hypoglycemic episode Glucose dropped to 44, increased to 138 after food intake. Continue to monitor; HbA1c 4.4 (10/25/24) Chronic Alcohol Use Disorder Give Thiamine with glucose Hypertension Metoprolol 50mg Daily BP range 111/72- 167/104 DVT prophylaxis: Eliquis held, pending clearance from Urology Diet: PO Fluids: PO Code Status: The patient was seen and discussed with attending Dr. Jose. This note was created with the assistance of a speech-recognition program. Every effort was made toensure accuracy; however, inadvertent computerized corporate training manager errors may be present. Katerine Acosta, MS3 João Garcia MD PGY-1 Internal Medicine Resident 10/26/24 1:01 PM Cosigned by Jyotsna Jose MD at 10/27/2024 12:00 PM EDT Associated attestation - Jyotsna Jose MD - 10/27/2024 12:00 PM EDT Attending Note I have seen and discussed the patient during rounds. I performed, participated and was present during the critical/velazquez portions of the service. I was directly involved in the management and treatmentplan of the patient. I reviewed the resident's note and agree with the findings and plan. Electronically signed by: Joytsna Jose MD This note is created with the assistance of a speech-recognition program. While intending to generate a document that actually reflects the content of the visit, no guarantees can be provided that every mistake has been identified and corrected by editing. * DORETHA August - 10/26/2024 7:38 AM EDT Images from the original note were not included. Jr. Emily, Izabella Carrillo., Jr. Alexandre, Izabella Maxwell., Rayshawn Ham M.D., Karl Arizmendi M.D., Carlton Richardson M.D., Dulce Molina M.D., Carlton Xiong M.D., Aviva Baez M.D. Hospital day: 1 Chief Complaint: R scrotal abscess Subjective: awake and alert. Minimal pain. Voiding well. No fevers or chills. Weight: 115.4 kg (254 lb 6.6 oz) Patient Vitals for the past 24 hrs: BP Temp Temp src Pulse Resp SpO2 Height Weight 10/26/24 0551 111/72 36.7 ??C (98.1 ??F) Oral 98 18 98 % -- -- 10/26/24 0100 -- -- -- -- -- -- 182.9 cm (6') 115.4 kg (254 lb 6.6 oz) 10/26/24 0046 118/75 36.7 ??C (98 ??F) Oral 105 18 97 % -- -- 10/25/24 2229 (!) 167/104 -- -- -- -- 97 % -- -- 10/25/24 2153 (!) 164/126 36.4 ??C (97.6 ??F) Oral 86 18 96 % -- -- 10/25/242000 (!) 153/96 36.7 ??C (98.1 ??F) Oral 99 20 97 % -- -- Intake/Output Summary (Last 24 hours) at 10/26/2024 0738 Last data filed at 10/26/2024 0600 Gross per 24 hour Intake 750 ml Output 350 ml Net 400 ml Results from last 7 days Lab Units 10/25/24 1347 POTASSIUM mmol/L 3.8 CHLORIDE mmol/L 115* CO2 mmol/L 17* BUN mg/dL 25 CREATININE mg/dL 1.47* GLUCOSE mg/dL 91 CALCIUM mg/dL 7.7* Results from last 7 days Lab Units 10/25/24 1347 WBC x10E9/L 12.8* HEMOGLOBIN g/dL 12.5* HEMATOCRIT % 36.9* PLATELETS X10E9/L 91* Lab Results Component Value Date SPECIFICGRA 1.025 10/25/2024 LEUKOCYTE Negative 10/25/2024 NITRITEN Negative 10/25/2024 PHNUR 5.5 10/25/2024 PROTEINNUR >=300 mg/dL (A) 10/25/2024 GLU 91 10/25/2024 KETONESNUR Negative 10/25/2024 UROBILINOGEN 1.0 E.U./dL 10/25/2024 BLOODHGBNU Large (A) 10/25/2024 Additional Lab/culture results: Wound cx pending Physical Exam: Gen: NAD CV: RRR Resp; nonlabored Abd: NT, ND : R hemiscrotum I&D site with packing, min serosang drng. Edges clean, indurated. Interval Imaging Findings: Impression: R scrotal abscess s/p ID Plan: Cont abx Await cx Will change dressing/pt will need to be taught to change dressing on dc. DORETHA AUGUST 7:38 AM 10/26/2024 DORETHA August 10/26/24 0742 Cosigned by Jaren Silveira MD at 10/26/2024 1:54 PM EDT documented in this encounter H&P Notes * Jacinto Goode MD - 10/25/2024 8:16 PM EDT [facility] HISTORY & PHYSICAL Date of Service: 10/25/24 Patient Name: Ovidio Coulter : 1960 PCP: Estrella Medina, [facility] [phone] Subjective Chief Complaint Chief Complaint Patient presents with Testicle Pain History of Present Illness Ovidio Coulter is a 64 y.o. male presents as a transfer from [facility] due to right-sided scrotal abscess. He reported the pain has been ongoing for 3 days in his right testicle. At the outside hospital, Urology drained the abscess and started antibiotics. Due to his multiple comorbidities, Urology recommended admit to medicine we had Urology consult. Patient has a past medical history significant for heart failure with reduced?? ejection fraction, coronary artery disease, ischemic cardiomyopathy status post ICD, paroxysmal atrial fibrillation on Eliquis last dose, nonsustained V-tach, chronic Dc? , CKD stage 4, history of alcohol abuse, history of cocaine abuse, chronic hepatitis-C. Pertinent negative history includes no complaints of chest pain, shortness on breath, nausea, vomiting, diarrhea, dysuria. On my evaluation,, patient was afebrile, HR 99, hypertensive BP 153/96 and was saturating at 97 on room air. On assessment, patient was in no apparent distress. Lab workup including CBC revealed a hemoglobin of 12.5, high white blood cell count of 12.8 and platelets of 91 (chronically low). CMP showed bicarb 17, serum creatinine 1.47. Scrotal ultrasound was done which revealed increased Doppler flow, increased Doppler flow in the epididymides consistent with epididymal orchitis, complex right hydrocele with some debris, irregular fluid collection in the right scrotum surrounded by scrotal wall thickening consistent with abscess, left scrotal wall thickening with induration but no fluid collection. Urinalysis was negative for nitrites, leukocytes. Patient was started on Zosyn for scrotal abscess. Patient has been admitted to [facility] for further evaluation and management. Urology has been consulted so far to assist with further management. Code status discussion was had with the patient and they elected for a full code status. Subjective Past Medical History: Reviewed and/or Updated October 25, 2024 Past Medical History: Diagnosis Date AAA (abdominal aortic aneurysm) [place] 11/12/2022 [place]ism [place] Atrial fibrillation [place] Bilateral leg pain Bowel wall thickening Cellulitis of left lower extremity resolved CHF (congestive heart failure) [place] Chronic pain of both knees CKD (chronic kidney disease) stage 4, GFR 15-29 ml/min [place] Coronary artery disease Dental disease partial upper and lower Dyslipidemia Electrolyte abnormality 05/02/2022 Elevated troponin 02/12/2018 GERD (gastroesophageal reflux disease) Gout Heart disease Hep C w/o coma, chronic [place] High cholesterol Hyperglycemia Hypertension Inguinal hernia right inguinal repaired Kidney stones MS (myocardial infarction) ([facility] 05/2018 Nstemi, 02/01/2015 MIS (Mullerian inhibiting substance) deficiency Obesity JAIME (obstructive sleep apnea) needs to get machine Renal dysfunction Renal insufficiency 04/03/2016 RUQ abdominal pain Sepsis due to urinary tract infection [place] 01/09/2023 Shortness of breath Syncope 05/2018 Thrombocytopenia Unstable angina ([facility] 09/26/2018 Visual impairment glasses Past Surgical History: Reviewed and/or Updated October 25, 2024 Past Surgical History: Procedure Laterality Date CARDIAC CATHETERIZATION Cardiac catheterization N/A 10/13/2021 Performed by Jeff Tomas MD at [facility] CARDIAC CATH LABS COLONOSCOPY Coronary angiogram and left ventricular gram/pressure N/A 10/06/2018 Performed by Devyn Ramos DO at [facility] CARDIAC CATH LABS Coronary angiogram and left ventricular gram/pressure N/A 07/25/2016 Performed by Loreto Méndez MD at [facility] CARDIAC CATH LABS Coronary angiogram only N/A 10/13/2021 Performed by Jeff Tomas MD at [facility] CARDIAC CATH LABS CORONARY ANGIOPLASTY WITH STENT PLACEMENT 2017 three CORONARY ANGIOPLASTY WITH STENT PLACEMENT 01/27/2015 BMS, Circ, Nstemi DAVINCI ROBOTIC ASSISTED INGUINAL HERNIA REPAIR WITH MESH Bilateral 01/19/2021 Performed by Gunner Weldon MD at [facility] SURGERY EGD DIAGNOSTIC N/A 02/14/2018 Performed by Ponce Guy MD at [facility] END[facility]COPY EGD/PEG TUBE PLACEMENT N/A 01/16/2023 Performed by Denia Boothe MD at [facility] SURGERY EP Invasive DC ICD N/A 03/19/2024 Performed by Socorro Ruiz MD at [facility] (EP) HERNIA REPAIR Right Intravascular pressure measurement first vessel(fractional flow reserve) N/A 10/06/2018 Performed by Devyn Ramos DO at [facility] CARDIAC CATH LABS Intravascular ultrasound coronary N/A 07/25/2016 Performed by Loreto Méndez MD at [facility] CARDIAC CATH LABS PEG TUBE REMOVAL 06/25/2023 Home Medications: Reviewed and/or Updated October 25, 2024 Prior to Admission medications Medication Sig Start Date End Date Taking? Authorizing Provider acidophilus-pectin, citrus 25 million cell -100 mg tablet Take 1 tablet by mouth in the morning and1 tablet at noon and 1 tablet in the evening. Take with meals. 01/24/23 Zena Mcmanus APRN-RAMP LEAD apixaban (ELIQUIS) 5 mg tablet Take 1 tablet (5 mg total) by mouth in the morning and 1 tablet (5 mg total) before bedtime. 11/16/21 Mike Woods PA-C atorvastatin (LIPITOR) 80 mg tablet Take 1 tablet (80 mg total) by mouth in the morning. Not In System Ref Prov bumetanide (BUMEX) 2 mg tablet Take 1 tablet (2 mg total) by mouth 2 (two) times a day before mealsIndications: visible water retention. Not In System Ref Prov cholecalciferol 2,000 units tablet Take 1 tablet (2,000 Units total) by mouth in the morning. 01/25/23 Zena Mcmanus APRN-RAMP LEAD clopidogreL (PLAVIX) 75 mg tablet TAKE 1 TABLET BY MOUTH IN THE MORNING. 04/28/24 Carlton Wilson APRN-RAMP LEAD dapagliflozin propanediol (FARXIGA) 10 mg tablet Take 1 tablet (10 mg total) by mouth in the morning. 04/01/24 Nicolle Sarabia APRN-KEANU hydrOXYzine (ATARAX) 25 mg tablet Take 1 tablet (25 mg total) by mouth every 6 (six) hours as needed. 09/23/23 Not In System Ref Prov magnesium oxide (MAGOX) 400 mg tablet Take 1 tablet (400 mg total) by mouth in the morning. 04/01/24 HARLAN Ramachandran metoprolol succinate XL (TOPROL XL) 50 mg 24 hr tablet Take 1 tablet (50 mg total) by mouth in the morning. 08/22/23 Not In System Ref Prov sqclampm-mdh-ugdfrdh gluconate (CENTRUM) 9 mg iron/15 mL liquid Take 15 mL by mouth in the morning.02/08/23 HARLAN Perkins nitroglycerin (NITROSTAT) 0.[address] 1 tablet (0.4 mg total) under the tongue every 5 (five) minutes as needed for chest pain. Not In System Ref Prov omeprazole (PriLOSEC) 20 mg capsule Take 1 capsule (20 mg total) by mouth daily. 09/27/20 William Bowles MD QUEtiapine (SEROquel) 25 mg tablet Take 0.5 tablets (12.5 mg total) by mouth nightly. 02/07/23 HARLAN Perkins sacubitriL-valsartan (ENTRESTO) 97-103 mg tablet Take 1 tablet by mouth in the morning and 1 tabletbefore bedtime. 04/06/24 Beatriz Dang MD spironolactone (ALDACTONE) 25 mg tablet take 1 tablet by mouth every morning 02/25/24 HARLAN Solares Allergies Reviewed and/or Updated October 25, 2024 Patient has no known allergies. Social History Reviewed and/or Updated October 25, 2024 reports that he has never smoked. He has never used smokeless tobacco. He reports current alcohol use of about 28.0 standard drinks of alcohol per week. He reports current drug use. Drug: Marijuana. Family History:Reviewed and/or Updated October 25, 2024 Family History Problem Relation Age of Onset Cancer Mother Colon cancer Father Hyperlipidemia Brother Hypertension Brother Kidney disease Sister Anesthesia problems Neg Hx Review of Systems: Constitutional: Negative for fatigue, weight change, activity change, appetite change, chills, diaphoresis and fever. HENT: Negative for ear pain, sinus pain, sneezing and sore throat. Respiratory: Negative for cough, shortness of breath and wheezing. Cardiovascular: Negative for chest pain, palpitations and leg swelling. Gastrointestinal: Negative for abdominal distention, abdominal pain, constipation, diarrhea, nauseaand vomiting. Genitourinary: Pain, scrotal swelling, right-sided. Musculoskeletal: Negative for back pain and joint swelling. Skin: Negative for rash and wound. Neurological: Negative for weakness and dizziness, light-headedness, numbness and headaches. Psychiatric/Behavioral: Negative for anxiety, low mood and agitation. Rest ROS is negative except for the findings depicted in the HPI. OBJECTIVE Objective Vitals BP (!) 153/96 Pulse 99 Temp 36.7 ??C (98.1 ??F) (Oral) Resp 20 SpO2 97% O2 Device: None (Room air) No intake or output data in the 24 hours ending 10/25/24 2016 Admission weight: Physical Exam Constitutional: General: Patient is in no distress, resting comfortably. Comments: None Neck: Neck: no JVD, no carotid bruit, neck supple, no lymphadenopathy HENT: Head: Normocephalic and atraumatic. Mouth: Mucous membranes are moist. Pharynx: Oropharynx is clear. No oropharyngeal exudate. Eyes: General: Right eye: No discharge. Left eye: No discharge. Extraocular Movements: Extraocular movements intact. Conjunctiva/sclera: Conjunctivae normal. Cardiovascular: Rate and Rhythm: Normal rate and regular rhythm. Heart sounds: No murmur heard. No friction rub. No gallop. Pulmonary: Effort: Pulmonary effort is normal. No respiratory distress. Breath sounds: No stridor. No added breath sounds present. Abdominal: General: Abdomen is non distended. Palpations: Abdomen is soft. Tenderness: No tenderness present Musculoskeletal: General: No abnormalities present. Back: Normal range of motion with no tenderness Right lower leg: No edema present. Left lower leg: No edema present. Skin: Findings: No rash present. Comments: None Neurological: General: Alert and oriented x 4 Motor/ sensory: No focal motor/sensory deficits present Psychiatric: Comments: Normal mood, Linear thought process : Scrotum with an bandage status post drainage. Labs Recent Results (from the past 24 hours) CBC auto differential Collection Time: 10/25/24 1:47 PM Result Value Ref Range WBC 12.8 (H) 4 - 11 x10E9/L RBC Count 3.89 (L) 4.1 - 5.7 X10E12/L Hemoglobin 12.5 (L) 13 - 17 g/dL Hematocrit 36.9 (L) 39 - 50 % MCV 95 80 - 100 fL MCH 32.1 27 - 34 pg MCHC 33.8 32 - 36 g/dL RDW 13.7 11.5 - 15 % Platelet Count 91 (L) 150 - 450 X10E9/L MPV 8.8 7 - 12 fL Neutrophils Relative 81.2 % Lymphocytes Relative 10.6 % Monocytes Relative 7.2 % Eosinophils Relative 0.7 % Basophils Relative 0.3 % Neutrophils Absolute (A) 10.4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 Transportation Needs: No Transportation Needs (10/26/2024) PRAPARE - Transportation Lack of Transportation (Medical): No Lack of Transportation (Non-Medical): No Physical Activity: Insufficiently Active (12/26/2022) Exercise Vital Sign Days of Exercise per Week: 2 days Minutes of Exercise per Session: 20 min Stress: No Stress Concern Present (12/26/2022) [employer] - Occupational Stress Questionnaire Feeling of Stress : Only a little Social Connections: Socially Isolated (12/26/2022) Social Connection and Isolation Panel [NHANES] Frequency of Communication with Friends and Family: More than three times a week Frequency of Social Gatherings with Friends and Family: More than three times a week Attends Je[employer] Services: Never Active Member of Clubs or Organizations: No Attends Club or Organization Meetings: Never Marital Status: Interpersonal Safety: Not At Risk (10/26/2024) Humiliation, Afraid, Rape, and Kick questionnaire Fear of Current or Ex-Partner: No Emotionally Abused: No Physically Abused: No Sexually Abused: No Housing Instability: Low Risk (10/26/2024) Housing Instability Housing Instability: No Review of Systems: Review of Systems Physical Exam: ED Triage Vitals Temp Pulse Resp BP SpO2 -- -- -- -- -- Temp src Heart Rate Source Patient Position BP Location FiO2 (%) -- -- -- -- -- Vitals: 10/28/24 0025 10/28/24 0430 10/28/24 0818 10/28/24 1113 BP: 121/80 112/77 (!) 118/98 114/83 Temp: 36.4 ??C (97.6 ??F) 36.9 ??C (98.5 ??F) 36.7 ??C (98.1 ??F) 36.4 ??C (97.6 ??F) TempSrc: Oral Oral Oral Oral Pulse: 82 86 96 Resp: 18 18 18 16 SpO2: 96% 97% 95% 96% MAP (mmHg): 92 88 105 92 Height: Weight: 96 Physical Exam Vitals reviewed. HENT: Head: Normocephalic and atraumatic. Eyes: Conjunctiva/sclera: Conjunctivae normal. Cardiovascular: Rate and Rhythm: Normal rate. Pulmonary: Effort: Pulmonary effort is normal. Breath sounds: Normal breath sounds. Abdominal: General: There is no distension. Palpations: Abdomen is soft. Genitourinary: Comments: swelling of the scrotum and induration two cm incision in the lower scrotum that has packing in it and has scant red drainage Musculoskeletal: General: Normal range of motion. Cervical back: Normal range of motion and neck supple. Skin: General: Skin is warm and dry. Neurological: General: No focal deficit present. Mental Status: He is alert and oriented to person, place, and time. GCS: GCS eye subscore is 4. GCS verbal subscore is 5. GCS motor subscore is 6. Procedure: Procedures Re-evaluation: Re-Evaluation Medical Decision Making The pt is a 64 y.o. male with a hx of diabetes here for scrotal abceses transferred from [facility]. Ddx includes but is not limited to: scrotal abscess, epididemal orchitis, does not appear clinically consistent with rebeca's gangrene. Dr Méndez will be down to see the patient at bedside. Risk Prescription drug management. ED Course: ED Course as of 10/28/24 1436 Sun Oct 25, 20241945 I reviewed the patient's records: Patient was seen at [facility] for a scrotal abscess today. Wasgiven Zosyn. Thinks this originated from a bug bite. Ultrasound showed concerns for epididymal orchitis in both testes, an epididymal cyst head of the epididymis, complex right hydrocele with some debris and right scrotal fluid collection concerning for abscess. Urology was not available at [facility], so he was transferred here for further evaluation and treatment. Reviewing labs from earlier today. CBC showed a mild leukocytosis, mild thrombocytopenia. Chronic kidney disease, otherwise reassuring. Lactate was within normal limits. UA was negative for signs of infection. [DW] 2013 Dr. Castro spoke with Dr. Goode from the hospitalist team, who reviewed case and is agreeable to admit the patient for further care and evaluation. Dr. shah be the admitting physician [DW] ED Course User Index [DW] Jaren Castro DO Clinical Impressions as of 10/28/24 1436 Scrotal abscess . ED Disposition ED Disposition Admit Date/Time Sun Oct 25, 2024 8:16 PM Comment At this time, the patient has objective evidence of an acute process that will likely require hospitalization for greater than 2 midnights. The patient will be admitted. Medications Prescribed this Visit This print group is not available in inpatient encounters. Please contact a linux system admin. . Please note that portions of this note were completed with a voice recognition program. Efforts were made to edit the dictations but occasionally words are mis-transcribed. Jaren Castro DO 10/25/241946 Kiley Champion 10/25/242008 Jaren Castro DO 10/28/24 1437 * Anisha Dietrich RN - 10/25/2024 7:41 PM EDT Bed: 14 Expected date: Expected time: Means of arrival: [facility] Comments: Ovidio Coulter 64 yrs M (1960) Scrotal abscess. Thinks a bug bit him. Right swollen testicle. No urology at [facility] until Saturday.Dr Silveira with urology recommended transfer. Gave zosyn. Not Rebeca's gangrene. 1932 PTN report enroute C/o 12/27 pain 166/81 p 110 97% ra r 18 Alert ox4 no pain meds given enroute, [place] gave pain meds Eta 8 min documented in this encounter Miscellaneous Notes * Query Response - João Garcia MD - 10/30/2024 7:26 AM EDT Query Response Note CDI QUERY TEXT: CHF Acuity and Type [id number] Disclaimer: By submitting this query, we are merely seeking further clarification of documentation to accurately reflect all conditions that you are monitoring, evaluating, treating or that extend the hospitalization or utilize additional resources of care. Please utilize your independent clinical judgment when addressing the question(s) below. Dear Dr. Garcia, Congestive Heart Failure is documented in the Medical Record. Document the type/acuity and cause (includes probable or suspected) Such as: 1. TYPE: - Combined systolic and diastolic (heart failure with reduced ejection fraction and diastolic) dysfunction - Systolic (HFrEF) - Other, specify: - Clinically unable to determine - Unknown 2. ACUITY - Acute - Chronic - Acute on chronic - Other, please specify Thank you, Taylor Rust, MARITO, AERIAL LINEMAN, CDIP Clinical Documentation Improvement [facility] Clinical Revenue Cycle Email: The patient's Clinical Indicators include: CHF (EF 30-35%) ischemic cardiomyopathy Patient takes metoprolol succinate daily CDI RESPONSE TEXT: Chronic HF with reduced EF Query created by: Taylor Rust on 10/28/2024 8:46 AM Electronically signed by: João Garcia MD 10/30/2024 7:24 AM * Discharge Planning Note - Anastacia Bartlett RN - 10/28/2024 2:37 PM EDT DISCHARGE PLANNING NOTE Transport is delayed, rescheduled to 730pm, patient updated. - Anastacia Bartlett RN 10/28/24 4:12PM Community Referral Form/medication reconciliation attached to [facility]. BLS transport is scheduled at 3pm. PTN cert faxed. DC packet ready. HENS complete. Bedside RN given number for report and patient has been updated. . - Anastacia Bartlett RN 10/28/24 2:38 PM * Discharge Planning Note - Yenny Champion - 10/28/2024 10:35 AM EDT DISCHARGE PLANNING NOTE BLS transport via PTN confirmed in [facility] to [place] 10.28.24 at 2:00pm. * Discharge Planning Note - France Leary - 10/28/2024 8:52 AM EDT DISCHARGE PLANNING NOTE Prior Auth approved for admission to : [facility]/ [facility], [place], [place] (P# ; F# ) Approval # [id number] Valid for Dates: 10/27/2024 - 10/30/2024 * Plan of Care - Irma Fountain RN - 10/28/2024 8:08 AM EDT Problem: Pain Goal: Patient goal is pain score less than 4, able to rest, and participant in treatment plan as appropriate Description: INTERVENTIONS: 1. Encourage patient or legal statement services representative to report early pain and ask for pain medicine when needed 2. Assess pain using appropriate pain scale and include the scale used when documenting 3. Administer analgesics based on type and severity of pain and evaluate response within appropriate time frame 4. Implement non-pharmacological measures as appropriate and evaluate response 5. Consider cultural and social influences on pain and pain management 6. Notify LIP if interventions ineffective or patient reports new pain 7. Monitor vital signs including pulse ox, end-tidal CO2 based on pain intervention 8. Reassess pain per policy 9. Teach patient or legal statement services representative interventions for comforting Outcome: Progressing Note: Evaluation of progress towards goal: Patient's pain is assessed and documented with appropriate pain scale. Patient does not report pain thus far. Will continue to assess and monitor Problem: Safety Goal: Patient will be injury free during hospitalization Description: INTERVENTIONS: 1. Assess patient's risk for falls and implement fall prevention plan of care per policy 2. Provide and maintain a safe environment 3. Proper use of double Identifiers 4. Medication administration using the 5 rights 5. Hand hygiene 6. Specimens are labeled at the bedside 7. Instruct patient/ patient statement services representative about use of safety devices 8. Include patient/ patient statement services representative in decisions related to safety Outcome: Progressing Note: Evaluation of progress towards goal: Patient remains free from falls and injuries, 5 P's addressed, bed is in a locked position and has call light within reach. Will continue to monitor. Problem: Infection Goal: Absence of infection during hospitalization Description: INTERVENTIONS 1. Assess and monitor for signs and symptoms of infection. 2. Monitor lab/diagnostic results. 3. Monitor all insertion sites i.e., indwelling lines, tubes and drains. 4. Monitor endotracheal (as able) and nasal secretions for changes in amount and color. 5. Administer medications as ordered. 6. Instruct and encourage patient and family to use good hand hygiene technique. 7. Identify and instruct patient/patient statement services representative in use of appropriate isolation precautionsfor identified infection/symptoms. 8. Provide and discuss with patient/patient statement services representative on educational MDRO sheet. 9. Encourage and monitor nutritional status daily and consult cro if indicated. 10. Implement neutropenic guidelines as needed. Outcome: Progressing Note: Evaluation of progress towards goal: Afebrile, labs and VS monitored Problem: Knowledge Deficit Goal: Patient/patient statement services representative demonstrates understanding of disease process, treatment plan,medications, and discharge instructions Description: INTERVENTIONS 1. Complete learning assessment and assess knowledge base 2. Provide teaching at level of understanding 3. Provide teaching via preferred learning method(s) Outcome: Progressing Note: Evaluation of progress towards goal: Patient updated & verbalizes understanding of POC along with medication education. Will continue to update patient. Patient is encouraged to voice concerns or ask questions regarding care. * Plan of Care - Dayanna Sandoval RN - 10/27/2024 11:21 PM EDT Problem: Moderate - High Risk Fall Score Description: Clark Fall Score of =/> 25 or indicated by [facility] Assessment Goal: Patient should be free from fall Description: Interventions: 1. [place] to environment 2. Hourly rounds addressing the 4 P's (Pain, Positioning, Possessions, Potty) 3. Clear area of hazards (spills, clutter, electrical cords, unnecessary equipment) 4. Place equipment (bed & TV controls, call light, phone, urinal) within reach 5. Encourage patient to wear glasses and hearing aides as appropriate 6. Maintain bed in lowest position 7. Lock wheels on bed/wheelchair 8. Provide adequate lighting, including night light 9. Assess need for additional bedding, food/fluids, pain med's prior to sleep/routinely 10. Provide gripper slippers or personal non-skid footwear 11. Teach patient and patient statement services representative to maintain environment for safety and engage in all aspects of fall prevention program 12. Remind patient to call for help before getting out of bed 13. Initiate bed/chair/exit alarms supportive devices as appropriate, (chair wedge, no-skid floor mat, raised edge mattress, hip protectors) 14. Locate patient bed assignment for optimal visualization 15. Evaluate and identify Safe Patient Handling Equipment needs 16. Provide supervision when out of bed or chair 17. Utilize gait belt as needed to assist with ambulation 18. Place adaptive equipment (cane, walker) within reach 19. Request patient statement services representative bring adaptive equipment/mobility aids from home or obtain and provide as needed 20. Consult pharmacy regarding effects of med's affecting mobility, cognition, and alternatives 21. Obtain physician order for PT if risk factors associated with mobility are present 22. Obtain physician order for OT as appropriate 23. Utilize diversional activities 24. Educate patient and patient statement services representative how to maintain a safe environment during visitationtimes (notify nurse prior to leaving bedside) 25. Consider appropriateness of medical or non-director medical 26. Set up voiding schedule as appropriate (every 2 hours) Outcome: Progressing Note: Evaluation of progress towards goal: 5 P's addressed, bed is in a locked position and has call light/personal belongings within reach. * Discharge Planning Note - France Leary - 10/27/2024 3:38 PM EDT DISCHARGE PLANNING NOTE Prior auth submitted to: [employer] Via: [employer] On behalf of : [facility]/ [facility], [place], [place] (P# ; F# ) Ref# [id number] * Discharge Planning Note - Yenny Champion - 10/27/2024 2:06 PM EDT DISCHARGE PLANNING NOTE Referrals sent to [facility]/ [facility], [place], [place] (P# ; F# ) and to [facility] in [place] (P# ; F# ) * Discharge Planning Note - JESÚS Bruno - 10/27/2024 1:36 PM EDT Images from the original note were not included. Ongoing Assessment for Discharge Needs Reviewed discharge milestones and patient needs related to discharge plan. Current estimated discharge date of Oct 29, 2024 has been reviewed by treatment team. Ongoing Assessment for Discharge Needs Flowsheet Row Most Recent Value Services Requested Patient expects to be discharged to: home with home care Does the patient wish to have family/friend/caregiver involved in their discharge planning? Yes Does the patient plan to return home to a community setting? Yes Has the family/friend/caregiver been assessed to determine their readiness, skills, capacities, andresources to provide post hospital care? No -([employer]) [unable to contact at this time, will keep trying to reach.] Discharge Disposition Home with home health services Does the patient need discharge transportation arranged? No Patient choice offered Yes List Provided Yes [facility] List Provided Home Care, [facility] Visiting Physician/Provider Estrella Medina RAMP LEAD Respiratory Indicator Does the patient currently have home respiratory equipment? No Will the patient need home respiratory equipment upon discharge? No, it is expected that patient will NOT discharge home with respiratory DME needs Patient discussed today in daily transition rounds. Current Discharge Plan: SNF. Current Barriers: SNF choice, acceptance, auth, [facility], pending culture. - JESÚS BRUNO 10/27/24 1:38 PM Patient provided choice to [facility] in [place]. tasked referral. - JESÚS BRUNO 10/27/24 1:38 PM * Plan of Care - Mariann Burdick RN - 10/27/2024 12:39 PM EDT Problem: Pain Goal: Patient goal is pain score less than 4, able to rest, and participant in treatment plan as appropriate Description: INTERVENTIONS: 1. Encourage patient or legal statement services representative to report early pain and ask for pain medicine when needed 2. Assess pain using appropriate pain scale and include the scale used when documenting 3. Administer analgesics based on type and severity of pain and evaluate response within appropriate time frame 4. Implement non-pharmacological measures as appropriate and evaluate response 5. Consider cultural and social influences on pain and pain management 6. Notify LIP if interventions ineffective or patient reports new pain 7. Monitor vital signs including pulse ox, end-tidal CO2 based on pain intervention 8. Reassess pain per policy 9. Teach patient or legal statement services representative interventions for comforting Outcome: Progressing Note: Evaluation of progress towards goal: Patient will report pain level less than 5 this shift .Patient able to report pain as needed. Pain managed with PRN pain medications. Problem: Safety Goal: Patient will be injury free during hospitalization Description: INTERVENTIONS: 1. Assess patient's risk for falls and implement fall prevention plan of care per policy 2. Provide and maintain a safe environment 3. Proper use of double Identifiers 4. Medication administration using the 5 rights 5. Hand hygiene 6. Specimens are labeled at the bedside 7. Instruct patient/ patient statement services representative about use of safety devices 8. Include patient/ patient statement services representative in decisions related to safety Outcome: Progressing Note: Evaluation of progress towards goal: Pt remains free from falls and injury, hand hygiene in and out of room, specimens labeled at bedside Problem: Infection Goal: Absence of infection during hospitalization Description: INTERVENTIONS 1. Assess and monitor for signs and symptoms of infection. 2. Monitor lab/diagnostic results. 3. Monitor all insertion sites i.e., indwelling lines, tubes and drains. 4. Monitor endotracheal (as able) and nasal secretions for changes in amount and color. 5. Administer medications as ordered. 6. Instruct and encourage patient and family to use good hand hygiene technique. 7. Identify and instruct patient/patient statement services representative in use of appropriate isolation precautionsfor identified infection/symptoms. 8. Provide and discuss with patient/patient statement services representative on educational MDRO sheet. 9. Encourage and monitor nutritional status daily and consult cro if indicated. 10. Implement neutropenic guidelines as needed. Outcome: Progressing Note: Evaluation of progress towards goal: Patient does not display s/s of infection.Prophylactic antibiotic given. Will continue to monitor patient, labs, and mews score. Problem: Knowledge Deficit Goal: Patient/patient statement services representative demonstrates understanding of disease process, treatment plan,medications, and discharge instructions Description: INTERVENTIONS 1. Complete learning assessment and assess knowledge base 2. Provide teaching at level of understanding 3. Provide teaching via preferred learning method(s) Outcome: Progressing Note: Evaluation of progress towards goal: Patient updated & verbalizes understanding of POC along with medication education. Will continue to update patient. Patient is encouraged to voice concerns or ask questions regarding care. Problem: Discharge Planning Goal: Discharge to post-acute care, other facility, or home with appropriate resources Description: Patient's goal is: INTERVENTIONS 1. Conduct assessment to determine patient/family and health care team treatment goals, and need for post-acute services based on payer coverage, community resources, and patient preferences, and barriers to discharge 2. Coordinate with Social work, Care Navigation, and Utilization Review to arrange appropriate level of services according to patient's needs based on patient preference and payer coverage in collaboration with the physician and health care team 3. Address psychosocial, clinical, and financial barriers to discharge as identified in assessment in conjunction with the patient/family and health care team 4. Consult appropriate ancillary services (i.e.. PT/OT/ST, etc) as needed 5. Communicate with and update the patient/family, physician, and health care team regarding progress on the discharge plan 6. Identify discharge learning needs (meds, wound care, etc). 7. Arrange for needed discharge transportation as appropriate Outcome: Progressing Note: Evaluation of progress towards goal: Discharge planning ongoing Problem: Moderate - High Risk Fall Score Description: Clark Fall Score of =/> 25 or indicated by [facility] Assessment Goal: Patient should be free from fall Description: Interventions: 1. [place] to environment 2. Hourly rounds addressing the 4 P's (Pain, Positioning, Possessions, Potty) 3. Clear area of hazards (spills, clutter, electrical cords, unnecessary equipment) 4. Place equipment (bed & TV controls, call light, phone, urinal) within reach 5. Encourage patient to wear glasses and hearing aides as appropriate 6. Maintain bed in lowest position 7. Lock wheels on bed/wheelchair 8. Provide adequate lighting, including night light 9. Assess need for additional bedding, food/fluids, pain med's prior to sleep/routinely 10. Provide gripper slippers or personal non-skid footwear 11. Teach patient and patient statement services representative to maintain environment for safety and engage in all aspects of fall prevention program 12. Remind patient to call for help before getting out of bed 13. Initiate bed/chair/exit alarms supportive devices as appropriate, (chair wedge, no-skid floor mat, raised edge mattress, hip protectors) 14. Locate patient bed assignment for optimal visualization 15. Evaluate and identify Safe Patient Handling Equipment needs 16. Provide supervision when out of bed or chair 17. Utilize gait belt as needed to assist with ambulation 18. Place adaptive equipment (cane, walker) within reach 19. Request patient statement services representative bring adaptive equipment/mobility aids from home or obtain and provide as needed 20. Consult pharmacy regarding effects of med's affecting mobility, cognition, and alternatives 21. Obtain physician order for PT if risk factors associated with mobility are present 22. Obtain physician order for OT as appropriate 23. Utilize diversional activities 24. Educate patient and patient statement services representative how to maintain a safe environment during visitationtimes (notify nurse prior to leaving bedside) 25. Consider appropriateness of medical or non-director medical 26. Set up voiding schedule as appropriate (every 2 hours) Outcome: Progressing Note: Evaluation of progress towards goal: Patient remains free from falls and injuries, 5 P's addressed, bed is in a locked position and has call light within reach. Will continue to monitor. Problem: Multi-Drug Resistant Organism / Rule-Out Infection Prevention Goal: Prevent transmission of infection Description: INTERVENTIONS 1. Place patient in private room or in room with patient with same disease 2. Discard single-use items 3. Clean reusable equipment between patients 4. Wear gloves for direct and indirect contact with patient or contaminants 5. Change gloves between tasks and procedures 6. Wash hands before and after caring for each patient 7. Wear appropriate personal protective equipment in relation to the indicated isolation type 8. Place appropriate isolation signage on patient's door 9. Provide patient/ patient statement services representative with isolation education. Outcome: Progressing Note: Evaluation of progress towards goal: hand hygiene in and out of room, gown and gloves on uponentering room * PT/OT/LEAD RECREATION ASSISTANT - Joe Marrero, PT - 10/27/2024 11:12 AM EDT Physical Therapy Evaluation Discharge Recommendations for Safe Patient Transition Discharge Recommendations: Post acute - moderate Post Acute Moderate Rehab Needs: Recommend moderate intensity rehab, Tolerate 1- 2 hrs of therapy 3-5 days/wk Current Impairments Informing Therapy Recommendation: Ambulation status/safety, Endurance level, Fall risk, ADL status 6 Clicks: Basic Mobility Turning from your back to your side while in a flat bed without using bed rails?: A little Moving from lying on your back to sitting on side of flat bed without using bed rails?: A little Moving to and from bed to a chair (including w/c)?: A little Standing up from a chair using your arms (e.g. w/c or bedside chair)?: A little To walk in hospital room?: A little Climbing 3-5 steps with a railing?: A lot Scoring 6 Clicks: Basic Mobility Raw Score: 17 CMS G Code Modifier: CK Therapy Plan Need for skilled Physical Therapy to address deficits in functional mobility due to a status decline resulting from prolonged hospital stay related to scrotal abscess. PT Treatment/Interventions: Functional transfer training, LE strengthening/ROM, Patient/family training, Stair training, Functional activities, Gait training, Balance, Bed mobility, Equipment eval/education, Endurance training PT Frequency: 4-5days/week PT Duration: until discharge Assessment Patient Assessment Therapy Problem List: Decreased balance, Decreased endurance, Decreased mobility, Decreased safe judgement during ADL, Decreased LE strength Patient Response to Treatment: Tolerated evaluation without adverse reaction Mood/Affect: Appropriate for circumstances Rehab Prognosis: Good, With continued PT status post acute discharge Visit RN Communication: Yes Medical Record Reviewed: Yes PT Type of Visit: Evaluation Pt initially presented to [facility] ED for evaluation of scrotal swelling. Pt thought from possible bug bite, no urology available at [facility] and pt transferred to [facility]. I & D performed at [facility] and pt started on antibiotics. Hgb 10/27/2024:11.7 Past Medical History: Diagnosis Date AAA (abdominal aortic aneurysm) [place]ism [place] Atrial fibrillation [place] Bilateral leg pain Bowel wall thickening Cellulitis of left lower extremity resolved CHF (congestive heart failure) [place] Chronic pain of both knees CKD (chronic kidney disease) stage 4, GFR 15-29 ml/min [place] Coronary artery disease Dental disease partial upper and lower Dyslipidemia Electrolyte abnormality 05/02/2022 Elevated troponin 02/12/2018 GERD (gastroesophageal reflux disease) Gout Heart disease Hep C w/o coma, chronic [place] High cholesterol Hyperglycemia Hypertension Inguinal hernia right inguinal repaired Kidney stones MS (myocardial infarction) [place] 05/2018 Nstemi, 02/01/2015 MIS (Mullerian inhibiting substance) deficiency Obesity JAIME (obstructive sleep apnea) needs to get machine Renal dysfunction Renal insufficiency 04/03/2016 RUQ abdominal pain Sepsis due to urinary tract infection [place] 01/09/2023 Shortness of breath Syncope 05/2018 Thrombocytopenia Unstable angina [place] 09/26/2018 Visual impairment glasses Past Surgical History: Procedure Laterality Date CARDIAC CATHETERIZATION Cardiac catheterization N/A 10/13/2021 Performed by Jeff Tomas MD at [facility] CARDIAC CATH LABS COLONOSCOPY Coronary angiogram and left ventricular gram/pressure N/A 10/06/2018 Performed by Devyn Ramos DO at [facility] CARDIAC CATH LABS Coronary angiogram and left ventricular gram/pressure N/A 07/25/2016 Performed by Loreto Méndez MD at [facility] CARDIAC CATH LABS Coronary angiogram only N/A 10/13/2021 Performed by Jeff Tomas MD at [facility] CARDIAC CATH LABS CORONARY ANGIOPLASTY WITH STENT PLACEMENT 2017 three CORONARY ANGIOPLASTY WITH STENT PLACEMENT 01/27/2015 BMS, Circ, Nstemi DAVINCI ROBOTIC ASSISTED INGUINAL HERNIA REPAIR WITH MESH Bilateral 01/19/2021 Performed by Gunner Weldon MD at [facility] SURGERY EGD DIAGNOSTIC N/A 02/14/2018 Performed by Ponce Guy MD at [facility] EGD/PEG TUBE PLACEMENT N/A 01/16/2023 Performed by Denia Boothe MD at [facility] EP Invasive DC ICD N/A 03/19/2024 Performed by Socorro Ruiz MD at [facility] HR (EP) HERNIA REPAIR Right Intravascular pressure measurement first vessel(fractional flow reserve) N/A 10/06/2018 Performed by Devyn Ramos DO at [facility] CARDIAC CATH LABS Intravascular ultrasound coronary N/A 07/25/2016 Performed by Loreto Méndez MD at [facility] CARDIAC CATH LABS PEG TUBE REMOVAL 06/25/2023 Precautions Activity: early mobility guidelines 10/25/2024, pass/supervised/cane per safety screen 10/26/2024 Equipment: IV pole Pacemaker/ICD: ICD Other: fall precautions, h/o falls, decreased safety awareness, h/o AAA, h/o syncope, enteric rule out Pain Assessment Pain Assessment: 0-10 Pain Score: 6 Pain Location: Scrotum Pain Duration: Constant/continuous Pain Intervention(s): Repositioned, Ambulation/increased activity Response to Interventions: Pain unchanged Home Living Type of Home: House Home Layout: One level, Able to live on main level with bedroom/bathroom, Performs ADLs on one level, Stairs to enter with rails Stairs to Enter: 4 Hand Rails: Bilateral Stairs in Home: 0 Bathroom Shower/Tub: Tub/shower unit Bathroom Toilet: Standard Bathroom Equipment: Shower chair, Hand-held shower Bathroom Accessibility: Accessible Home Equipment: Cane, Electric scooter, Rolling walker Other : ambulating with cane inside the home [employer], electric scooter used for out in the community Prior Function Lives With: Significant other Receives Help From: Family, Other (Comment) (limited assistance from S.O. is in fair health, limited available family support, pt noted some support available from niece) Level of Mobility: Independent with ADLs and functional transfers or gait Homemaking Assistance: Independent (assistance for transportation) Hearing / Speech / Vision Hearing: Within Functional Limits Speech: Within Functional Limits Current Vision: Wears glasses all the time Cognition Overall Cognitive Status: Within Functional Limits Orientation Level: Oriented X4 Bed Mobility Supine to Sit: Left, Stand by assist Sit to Supine: (NT, pt left sitting up in chair chair with call light in reach) Other: HOB slightly elevated with use of bedrail, verbal cues for safety Transfers Sit to Stand: Contact guard assist Stand to Sit: Contact guard assist Toilet Transfers: Contact guard assist Other: slightly unsteady, decreased safety awareness, verbal cues for safe technique Gait Base of Support: Within Functional Limits Pattern: (fast pace, slightly unsteady, decreased safety awareness) Gait Assistance: Contact guard assist Assistive Device: Other (Comment) (IV pole for support) Gait Distance: 15 feet x 2 Limiting Factors to Gait: Pain Balance Standing Balance: Static: Fair (fair+) Standing Balance: Dynamic: Fair RLE Assessment: Within Functional Limits LLE Assessment: Within Functional Limits Activity Tolerance Endurance: Tolerates <30 minutes activity WITHOUT vital sign changes Plan Physical Therapy Care Plan Physical Therapy Care Plan (Active) Template: PT - Physical Therapy Problem: Bed Mobility Dates: Start: 10/27/24 Disciplines: PT Goal: Patient will perform bed mobility with Modified [place] Dates: Start: 10/27/24 Expected End: 11/26/24 Description: Goal Description: Disciplines: PT Problem: Gait Dates: Start: 10/27/24 Disciplines: PT Goal: Patient will perform gait with Supervision Dates: Start: 10/27/24 Expected End: 11/26/24 Description: With__cane__,__150__feet Goal Description: Disciplines: PT Problem: Standing Balance Dates: Start: 10/27/24 Disciplines: PT Goal: Improve balance to good Dates: Start: 10/27/24 Expected End: 11/26/24 Description: Increase standing balance to good- to decrease fall risk Disciplines: PT Problem: Strength Dates: Start: 10/27/24 Disciplines: PT Goal: Improve strength Dates: Start: 10/27/24 Expected End: 11/26/24 Description: Tolerate 20 reps ther ex Of extremity/ location:BLE To facilitate:improved functional mobility Disciplines: PT Problem: Transfers Dates: Start: 10/27/24 Disciplines: PT Goal: Patient will perform transfers with Supervision Dates: Start: 10/27/24 Expected End: 11/26/24 Description: Goal Description: Disciplines: PT Physical Therapy Care Plan (Resolved) There are no resolved problems. Principal Problem: Scrotal abscess * PT/OT/LEAD RECREATION ASSISTANT - Ariella Gonsales OTR/L - 10/27/2024 11:10 AM EDT Occupational Therapy Evaluation Discharge Recommendations for Safe Patient Transition Discharge Recommendations: Post acute - moderate Post Acute Moderate Rehab Needs: Recommend moderate intensity rehab, Tolerate 1- 2 hrs of therapy 3-5 days/wk Current Impairments Informing Therapy Recommendation: Ambulation status/safety, Fall risk, ADL status, Endurance level Therapy Plan Need for skilled Occupational Therapy to address deficits in ADL independence and functional mobility due to a status decline resulting from scrotal abscess. 10/25: Pt presented d/t R scrotal abscess. US scrotum: Findings most consistent with epididymal orchitis. R epididymal cyst head of the epididymis. Complex right hydrocele containing some debris. Irregular fluid collection in the right scrotum surrounded by scrotal wall thickening, consistent with abscess. L scrotal wall thickening and induration. S/p I&D R hemiscrotal abscess Urology following 6 Clicks: Daily Activity Putting on and taking off regular lower body clothing?: A lot Bathing (including washing, rinsing, drying)?: A lot Toileting, which includes using toilet, bedpan or urinal?: A little Putting on and taking off regular upper body clothing?: A little Taking care of personal grooming such as brushing teeth?: A little Eating meals?: None Scoring Daily Activity Raw Score: 17 [facility] G Code Modifier: CK Past Medical History: Diagnosis Date AAA (abdominal aortic aneurysm) [place] syndrome[place] 11/12/2022 [place]ism [place]) Atrial fibrillation [place] Bilateral leg pain Bowel wall thickening Cellulitis of left lower extremity resolved CHF (congestive heart failure) [place] Chronic pain of both knees CKD (chronic kidney disease) stage 4, GFR 15-29 ml/min [place] Coronary artery disease Dental disease partial upper and lower Dyslipidemia Electrolyte abnormality 05/02/2022 Elevated troponin 02/12/2018 GERD (gastroesophageal reflux disease) Gout Heart disease Hep C w/o coma, chronic [place] High cholesterol Hyperglycemia Hypertension Inguinal hernia right inguinal repaired Kidney stones MS (myocardial infarction) [place] 05/2018 Nstemi, 02/01/2015 MIS (Mullerian inhibiting substance) deficiency Obesity JAIME (obstructive sleep apnea) needs to get machine Renal dysfunction Renal insufficiency 04/03/2016 RUQ abdominal pain Sepsis due to urinary tract infection [place] 01/09/2023 Shortness of breath Syncope 05/2018 Thrombocytopenia Unstable angina [place] 09/26/2018 Visual impairment glasses Past Surgical History: Procedure Laterality Date CARDIAC CATHETERIZATION Cardiac catheterization N/A 10/13/2021 Performed by Jeff Tomas MD at [facility] CARDIAC CATH LABS COLONOSCOPY Coronary angiogram and left ventricular gram/pressure N/A 10/06/2018 Performed by Devyn Ramos DO at [facility] CARDIAC CATH LABS Coronary angiogram and left ventricular gram/pressure N/A 07/25/2016 Performed by Loreto Méndez MD at [facility] CARDIAC CATH LABS Coronary angiogram only N/A 10/13/2021 Performed by Jeff Tomas MD at [facility] CARDIAC CATH LABS CORONARY ANGIOPLASTY WITH STENT PLACEMENT 2016 three CORONARY ANGIOPLASTY WITH STENT PLACEMENT 01/27/2015 BMS, Circ, Nstemi DAVINCI ROBOTIC ASSISTED INGUINAL HERNIA REPAIR WITH MESH Bilateral 01/19/2021 Performed by Gunner Weldon MD at [facility] EGD DIAGNOSTIC N/A 02/14/2018 Performed by Ponce Guy MD at [facility] EGD/PEG TUBE PLACEMENT N/A 01/16/2023 Performed by Denia Boothe MD at [facility] EP Invasive DC ICD N/A 03/19/2024 Performed by Socorro Ruiz MD at [facility] (EP) HERNIA REPAIR Right Intravascular pressure measurement first vessel(fractional flow reserve) N/A 10/06/2018 Performed by Devyn Ramos DO at [facility] CARDIAC CATH LABS Intravascular ultrasound coronary N/A 07/25/2016 Performed by Loreto Méndez MD at [facility] CARDIAC CATH LABS PEG TUBE REMOVAL 06/25/2023 OT Treatment/Interventions: ADL retraining, Functional transfer training, UE strengthening/ROM, Endurance training, Patient/family training, Equipment eval/education, Balance, Bed mobility, Compensatory technique education, Functional activities OT Frequency: 4-5days/week OT Duration: LOS Assessment Patient Assessment Therapy Problem List: Decreased ADL status, Decreased balance, Decreased endurance, Decreased high-level ADLs, Decreased mobility, Decreased safe judgement during ADL, Decreased UE strength Patient Response to Treatment: Tolerated evaluation without adverse reaction Mood/Affect: Appropriate for circumstances Rehab Prognosis: Good, With continued OT status post acute discharge Visit RN Communication: Yes Medical Record Reviewed: Yes OT Type of Visit: Evaluation Precautions Activity: Early mobility-pass, okay per RN Equipment: IV Telemetry/Court Usher: Yes Oxygen Used: Room air Other: Fall risk Pain Assessment Pain Assessment: 0-10 Pain Score: 6 Pain Location: Scrotum Pain Intervention(s): Repositioned, Ambulation/increased activity Response to Interventions: Pain unchanged, Quiet Home Living Type of Home: House Home Layout: One level Stairs to Enter: 4 Hand Rails: Bilateral Stairs in Home: None Bathroom Shower/Tub: Tub/shower unit Bathroom Toilet: Standard Bathroom Equipment: Shower chair, Hand-held shower Home Equipment: Cane, Electric scooter, Rolling walker Other : Pt uses cane for household distances and electric scooter for community distances at baseline. Pt denies recent falls. Prior Function Lives With: Significant other Level of Mobility: Independent with ADLs and functional transfers or gait Homemaking Assistance: Needs assistance Driving: Total assist Other: Pt and girlfriend share IADLs at baseline. Other: Girlfriend has cancer and is unable to provide assist. Pt denies other local support. ADL / IADL Hand Dominance: Right Where Assessed: Standing at sink, At toilet Eating Assistance: Independent Grooming Assistance: Contact guard assist Bathing/Showering Assistance: Min assist Toilet/Commode Assistance: Min assist UE Dressing Assistance: Min assist LE Dressing Assistance: Mod assist Footwear Assistance: Mod assist Other: Pt completed toileting from seated level with increased time to complete, no LB clothing to manage. Pt stood at sink to wash hands with CGA. Home Management - IADL Other: Pt completed toileting from seated level with increased time to complete, no LB clothing to manage. Pt stood at sink to wash hands with CGA. Hearing / Speech / Vision Hearing: Within Functional Limits Speech: Within Functional Limits Current Vision: Wears glasses all the time Cognition Overall Cognitive Status: Within Functional Limits Sensation Overall Sensation Status: Within Functional Limits Bed Mobility Supine to Sit: Stand by assist Sit to Supine: Unable to assess Other: Pt in bed upon entrance, completed sup to sit with elevated HOB and use of bed rail. Pt in chair upon exit, call light within reach and all needs met. Transfers Sit to Stand: Contact guard assist Stand to Sit: Contact guard assist Toilet Transfers: Contact guard assist Other: Pt completed STS x2 trials with cues for safety Gait Gait Assistance: Contact guard assist Assistive Device: Other (Comment) (Pt pushed IV pole) Gait Distance: 15' x2 Limiting Factors to Gait: Pain Balance Sitting Balance: Static: Good Sitting Balance: Dynamic: Good Standing Balance: Static: Fair (Fair+) Standing Balance: Dynamic: Fair Other: Pt sat unsupported at toilet without LOB. Pt completed static stand at sink with unilateral UE support and CGA. RUE Assessment: Within Functional Limits LUE Assessment: Within Functional Limits Activity Tolerance Endurance: Tolerates <30 minutes activity WITHOUT vital sign changes Other: Limited by pain Plan Occupational Therapy Care Plan Occupational Therapy Care Plan (Active) Template: OT - Occupational Therapy Problem: Activity Tolerance Dates: Start: 10/27/24 Disciplines: OT Goal: Tolerate > 30 minutes of activity WITH rest breaks Dates: Start: 10/27/24 Expected End: 11/26/24 Description: Goal Description: Disciplines: OT Outcomes Date/Time User Outcome 10/27/24 1322 RAMIN Olson/Myrna Progressing Goal Note filed on 10/27/24 1322 by RAMIN Olson/Myrna Evaluation of progress towards goal: Problem: Bed Mobility Dates: Start: 10/27/24 Disciplines: OT Goal: Patient will perform bed mobility with Modified [place] Dates: Start: 10/27/24 Expected End: 11/26/24 Description: Goal Description: Disciplines: OT Problem: Functional Mobility Dates: Start: 10/27/24 Disciplines: OT Goal: Patient will perform functional mobility with Modified [place] Dates: Start: 10/27/24 Expected End: 11/26/24 Description: Goal Description: Household distances with LRD Disciplines: OT Problem: Other (Customize) Dates: Start: 10/27/24 Disciplines: OT Goal: Improve Dates: Start: 10/27/24 Expected End: 11/26/24 Description: Goal Description: Pt will complete all areas of ADL mod I with AE and compensatory strategies as needed Disciplines: OT Outcomes Date/Time User Outcome 10/27/24 1322 CATARINA Olson Progressing Goal Note filed on 10/27/24 1322 by CATARINA Olson Evaluation of progress towards goal: Problem: Standing Balance Dates: Start: 10/27/24 Disciplines: OT Goal: Improve balance to good Dates: Start: 10/27/24 Expected End: 11/26/24 Description: Static Dynamic Disciplines: OT Outcomes Date/Time User Outcome 10/27/24 1322 CATARINA Olson Progressing Goal Note filed on 10/27/24 132 by CATARINA Olson Evaluation of progress towards goal: Problem: Strength Dates: Start: 10/27/24 Disciplines: OT Goal: Improve strength Dates: Start: 10/27/24 Expected End: 11/26/24 Description: Of extremity/ location: 5/5 BUE To facilitate: independence with ADLs Disciplines: OT Problem: Toilet Transfers Dates: Start: 10/27/24 Disciplines: OT Goal: Patient will perform toilet transfers with Modified [place] Dates: Start: 10/27/24 Expected End: 11/26/24 Description: Goal Description: Disciplines: OT Outcomes Date/Time User Outcome 10/27/24 1322 CATARINA Olson Progressing Goal Note filed on 10/27/24 1322 by CATARINA Olson Evaluation of progress towards goal: Problem: Transfers Dates: Start: 10/27/24 Disciplines: OT Goal: Patient will perform transfers with Modified [place] Dates: Start: 10/27/24 Expected End: 11/26/24 Description: Goal Description: Disciplines: OT Occupational Therapy Care Plan (Resolved) There are no resolved problems. Principal Problem: Scrotal abscess * Plan of Care - Kyung Hoyos RN - 10/26/2024 11:04 PM EDT Problem: Safety Goal: Patient will be injury free during hospitalization Description: INTERVENTIONS: 1. Assess patient's risk for falls and implement fall prevention plan of care per policy 2. Provide and maintain a safe environment 3. Proper use of double Identifiers 4. Medication administration using the 5 rights 5. Hand hygiene 6. Specimens are labeled at the bedside 7. Instruct patient/ patient statement services representative about use of safety devices 8. Include patient/ patient statement services representative in decisions related to safety Outcome: Progressing Note: Evaluation of progress towards goal: Pt remains free from falls and injury, hand hygiene in and out of room, specimens labeled at bedside Problem: Infection Goal: Absence of infection during hospitalization Description: INTERVENTIONS 1. Assess and monitor for signs and symptoms of infection. 2. Monitor lab/diagnostic results. 3. Monitor all insertion sites i.e., indwelling lines, tubes and drains. 4. Monitor endotracheal (as able) and nasal secretions for changes in amount and color. 5. Administer medications as ordered. 6. Instruct and encourage patient and family to use good hand hygiene technique. 7. Identify and instruct patient/patient statement services representative in use of appropriate isolation precautionsfor identified infection/symptoms. 8. Provide and discuss with patient/patient statement services representative on educational MDRO sheet. 9. Encourage and monitor nutritional status daily and consult cro if indicated. 10. Implement neutropenic guidelines as needed. Outcome: Progressing Note: Evaluation of progress towards goal: Afebrile, labs and VS monitored. Patient receiving IV antibiotics. Problem: Knowledge Deficit Goal: Patient/patient statement services representative demonstrates understanding of disease process, treatment plan,medications, and discharge instructions Description: INTERVENTIONS 1. Complete learning assessment and assess knowledge base 2. Provide teaching at level of understanding 3. Provide teaching via preferred learning method(s) Outcome: Progressing Note: Evaluation of progress towards goal: Patient updated & verbalizes understanding of POC along with medication education. Will continue to update patient. Patient is encouraged to voice concerns or ask questions regarding care. Problem: Moderate - High Risk Fall Score Description: Clark Fall Score of =/> 25 or indicated by [facility] Assessment Goal: Patient should be free from fall Description: Interventions: 1. [place] to environment 2. Hourly rounds addressing the 4 P's (Pain, Positioning, Possessions, Potty) 3. Clear area of hazards (spills, clutter, electrical cords, unnecessary equipment) 4. Place equipment (bed & TV controls, call light, phone, urinal) within reach 5. Encourage patient to wear glasses and hearing aides as appropriate 6. Maintain bed in lowest position 7. Lock wheels on bed/wheelchair 8. Provide adequate lighting, including night light 9. Assess need for additional bedding, food/fluids, pain med's prior to sleep/routinely 10. Provide gripper slippers or personal non-skid footwear 11. Teach patient and patient statement services representative to maintain environment for safety and engage in all aspects of fall prevention program 12. Remind patient to call for help before getting out of bed 13. Initiate bed/chair/exit alarms supportive devices as appropriate, (chair wedge, no-skid floor mat, raised edge mattress, hip protectors) 14. Locate patient bed assignment for optimal visualization 15. Evaluate and identify Safe Patient Handling Equipment needs 16. Provide supervision when out of bed or chair 17. Utilize gait belt as needed to assist with ambulation 18. Place adaptive equipment (cane, walker) within reach 19. Request patient statement services representative bring adaptive equipment/mobility aids from home or obtain and provide as needed 20. Consult pharmacy regarding effects of med's affecting mobility, cognition, and alternatives 21. Obtain physician order for PT if risk factors associated with mobility are present 22. Obtain physician order for OT as appropriate 23. Utilize diversional activities 24. Educate patient and patient statement services representative how to maintain a safe environment during visitationtimes (notify nurse prior to leaving bedside) 25. Consider appropriateness of medical or non-director medical 26. Set up voiding schedule as appropriate (every 2 hours) Outcome: Progressing Note: Evaluation of progress towards goal: Patient remains free from falls and injuries, 5 P's addressed, bed is in a locked position and has call light within reach. Will continue to monitor. * Plan of Care - Mariann Bundy RN - 10/26/2024 6:10 PM EDT Problem: Pain Goal: Patient goal is pain score less than 4, able to rest, and participant in treatment plan as appropriate Description: INTERVENTIONS: 1. Encourage patient or legal statement services representative to report early pain and ask for pain medicine when needed 2. Assess pain using appropriate pain scale and include the scale used when documenting 3. Administer analgesics based on type and severity of pain and evaluate response within appropriate time frame 4. Implement non-pharmacological measures as appropriate and evaluate response 5. Consider cultural and social influences on pain and pain management 6. Notify LIP if interventions ineffective or patient reports new pain 7. Monitor vital signs including pulse ox, end-tidal CO2 based on pain intervention 8. Reassess pain per policy 9. Teach patient or legal statement services representative interventions for comforting Outcome: Progressing Note: Evaluation of progress towards goal: Staff will monitor for pain frequently and treat it as necessary Problem: Safety Goal: Patient will be injury free during hospitalization Description: INTERVENTIONS: 1. Assess patient's risk for falls and implement fall prevention plan of care per policy 2. Provide and maintain a safe environment 3. Proper use of double Identifiers 4. Medication administration using the 5 rights 5. Hand hygiene 6. Specimens are labeled at the bedside 7. Instruct patient/ patient statement services representative about use of safety devices 8. Include patient/ patient statement services representative in decisions related to safety Outcome: Progressing Note: Evaluation of progress towards goal: pt will remain safe this shift Problem: Infection Goal: Absence of infection during hospitalization Description: INTERVENTIONS 1. Assess and monitor for signs and symptoms of infection. 2. Monitor lab/diagnostic results. 3. Monitor all insertion sites i.e., indwelling lines, tubes and drains. 4. Monitor endotracheal (as able) and nasal secretions for changes in amount and color. 5. Administer medications as ordered. 6. Instruct and encourage patient and family to use good hand hygiene technique. 7. Identify and instruct patient/patient statement services representative in use of appropriate isolation precautionsfor identified infection/symptoms. 8. Provide and discuss with patient/patient statement services representative on educational MDRO sheet. 9. Encourage and monitor nutritional status daily and consult cro if indicated. 10. Implement neutropenic guidelines as needed. Outcome: Progressing Note: Evaluation of progress towards goal: staff will monitor for signs and symptoms of infection and report any signs and symptoms of infection to doctor as soon as possible. Staff will take appropriate interventions in order for this patient will remain free from further infection this shift. Problem: Knowledge Deficit Goal: Patient/patient statement services representative demonstrates understanding of disease process, treatment plan,medications, and discharge instructions Description: INTERVENTIONS 1. Complete learning assessment and assess knowledge base 2. Provide teaching at level of understanding 3. Provide teaching via preferred learning method(s) Outcome: Progressing Note: Evaluation of progress towards goal: This patient will be educated on their, medications, care plan, personal care, medical treatments, diagnosis, discharge plan, and any other concerns noted. Problem: Discharge Planning Goal: Discharge to post-acute care, other facility, or home with appropriate resources Description: Patient's goal is: INTERVENTIONS 1. Conduct assessment to determine patient/family and health care team treatment goals, and need for post-acute services based on payer coverage, community resources, and patient preferences, and barriers to discharge 2. Coordinate with Social work, Care Navigation, and Utilization Review to arrange appropriate level of services according to patient's needs based on patient preference and payer coverage in collaboration with the physician and health care team 3. Address psychosocial, clinical, and financial barriers to discharge as identified in assessment in conjunction with the patient/family and health care team 4. Consult appropriate ancillary services (i.e.. PT/OT/ST, etc) as needed 5. Communicate with and update the patient/family, physician, and health care team regarding progress on the discharge plan 6. Identify discharge learning needs (meds, wound care, etc). 7. Arrange for needed discharge transportation as appropriate Note: Evaluation of progress towards goal: Discharge planning will be discussed, outpatient needs will be discussed, successful plan will be completed for discharge needs, discharge readiness will bediscussed. Problem: Moderate - High Risk Fall Score Description: Clark Fall Score of =/> 25 or indicated by [facility] Assessment Goal: Patient should be free from fall Description: Interventions: 1. [place] to environment 2. Hourly rounds addressing the 4 P's (Pain, Positioning, Possessions, Potty) 3. Clear area of hazards (spills, clutter, electrical cords, unnecessary equipment) 4. Place equipment (bed & TV controls, call light, phone, urinal) within reach 5. Encourage patient to wear glasses and hearing aides as appropriate 6. Maintain bed in lowest position 7. Lock wheels on bed/wheelchair 8. Provide adequate lighting, including night light 9. Assess need for additional bedding, food/fluids, pain med's prior to sleep/routinely 10. Provide gripper slippers or personal non-skid footwear 11. Teach patient and patient statement services representative to maintain environment for safety and engage in all aspects of fall prevention program 12. Remind patient to call for help before getting out of bed 13. Initiate bed/chair/exit alarms supportive devices as appropriate, (chair wedge, no-skid floor mat, raised edge mattress, hip protectors) 14. Locate patient bed assignment for optimal visualization 15. Evaluate and identify Safe Patient Handling Equipment needs 16. Provide supervision when out of bed or chair 17. Utilize gait belt as needed to assist with ambulation 18. Place adaptive equipment (cane, walker) within reach 19. Request patient statement services representative bring adaptive equipment/mobility aids from home or obtain and provide as needed 20. Consult pharmacy regarding effects of med's affecting mobility, cognition, and alternatives 21. Obtain physician order for PT if risk factors associated with mobility are present 22. Obtain physician order for OT as appropriate 23. Utilize diversional activities 24. Educate patient and patient statement services representative how to maintain a safe environment during visitationtimes (notify nurse prior to leaving bedside) 25. Consider appropriateness of medical or non-director medical 26. Set up voiding schedule as appropriate (every 2 hours) Outcome: Progressing Note: Evaluation of progress towards goal: Pt will remain fall free this admit * Discharge Planning Note - Anastacia Bartlett RN - 10/26/2024 2:58 PM EDT DISCHARGE PLANNING NOTE CN followed up this afternoon regarding HC vs SNF. He states he does not feel he can do this at home. His girlfriend is dealing with some medical issues herself. Will request therapy to see. Will follow up in the morning for SNF choices. - Anastacia Bartlett RN 10/26/24 2:59 PM * Discharge Planning Note - Anastacia Bartlett RN - 10/26/2024 11:28 AM EDT Images from the original note were not included. Initial Assessment Initial Assessment Flowsheet Row Most Recent Value Patient Information Primary Caregiver Self Accompanied by/Relationship self Support System Spouse/Significant Other Discharge Planning Living Arrangements Private Residence, Family members Assistance Needed none before admission Private Residence 1 story Residence Accessibility Steps into home Number of Steps 4 Home Care Services No Type of Residence Private residence Stressors Type of stressor Health issues Explain issues scrotal abscess Income Information IP Hunger/Food Insecurity Screening Within the past 12 months we worried whether our food would run out before we got money to buy more. Never True Within the past 12 months the food we bought just didn't last and we didn't have money to get more.Never True Hunger Screening Complete? Yes Pt. Eligible for Food / Voucher No If Eligible: Received Food Box Not Offered to Patient Caregiver/Family Member Caregiver/Family Member self Caregiver/Support System Limitations Patient/Caregiver Goals Patient/Caregiver Goals Home with Home Care Community Provider Referral Services Requested Patient expects to be discharged to: home with home care Does the patient wish to have family/friend/caregiver involved in their discharge planning? Yes Does the patient plan to return home to a community setting? Yes Has the family/friend/caregiver been assessed to determine their readiness, skills, capacities, andresources to provide post hospital care? No -([employer]) [unable to contact at this time, will keep trying to reach.] Discharge Disposition Home with home health services Does the patient need discharge transportation arranged? No Patient choice offered Yes List Provided Yes [facility] List Provided Home Care, [facility] Visiting Physician/Provider Estrella Medina CNP Patient admitted for: scrotal abscess Patient discussed in discharge transition rounds: Per RN report barriers include; packing wound, tissue culture pending, IV antibiotics CN spoke with patient at bedside, introduced self and explained role. Patient lives with girlfriendin a one story home with 4 steps to enter home. Patient stated they are independent at baseline with ADL's and patient was not able to drive prior to admission. He gets transportation through his [place] Medicaid. Patient states that they currently use a walker and a cane DME. Patient endorses no issue financially with being able to obtain medications or food. Patient states that they have working water, gas and electric. Patient's preferred pharmacy is [facility]. Per patient self report: Drug use: marijuana ETOH use: states occasionally Smoking: denies PCP added to follow up provider list to receive summary of care at discharge. Based on readmission risk assessment, patient has risk score of 15.8 for readmission. The followingarrangements have been made to help prevent readmission. D/C Plan: Home with home care or possible SNF placement based on discharge needs. SNF list and HC list provided. He is talking with girlfriend to see if she can help with wound care, CN will follow up this afternoon. Truck Driver Instructor will continue to follow for any discharge needs. - Anastacia Bartlett RN 10/26/24 11:30 AM Additional Comments (If Applicable) * Plan of Care - Angelito Aguilar RN - 10/26/2024 1:29 AM EDT Problem: Pain Goal: Patient goal is pain score less than 4, able to rest, and participant in treatment plan as appropriate Description: INTERVENTIONS: 1. Encourage patient or legal statement services representative to report early pain and ask for pain medicine when needed 2. Assess pain using appropriate pain scale and include the scale used when documenting 3. Administer analgesics based on type and severity of pain and evaluate response within appropriate time frame 4. Implement non-pharmacological measures as appropriate and evaluate response 5. Consider cultural and social influences on pain and pain management 6. Notify LIP if interventions ineffective or patient reports new pain 7. Monitor vital signs including pulse ox, end-tidal CO2 based on pain intervention 8. Reassess pain per policy 9. Teach patient or legal statement services representative interventions for comforting Outcome: Progressing Note: Evaluation of progress towards goal: Patient reports pain is improved with pain medication. Problem: Safety Goal: Patient will be injury free during hospitalization Description: INTERVENTIONS: 1. Assess patient's risk for falls and implement fall prevention plan of care per policy 2. Provide and maintain a safe environment 3. Proper use of double Identifiers 4. Medication administration using the 5 rights 5. Hand hygiene 6. Specimens are labeled at the bedside 7. Instruct patient/ patient statement services representative about use of safety devices 8. Include patient/ patient statement services representative in decisions related to safety Outcome: Progressing Note: Evaluation of progress towards goal: Patient is free of injury at this time. Problem: Infection Goal: Absence of infection during hospitalization Description: INTERVENTIONS 1. Assess and monitor for signs and symptoms of infection. 2. Monitor lab/diagnostic results. 3. Monitor all insertion sites i.e., indwelling lines, tubes and drains. 4. Monitor endotracheal (as able) and nasal secretions for changes in amount and color. 5. Administer medications as ordered. 6. Instruct and encourage patient and family to use good hand hygiene technique. 7. Identify and instruct patient/patient statement services representative in use of appropriate isolation precautionsfor identified infection/symptoms. 8. Provide and discuss with patient/patient statement services representative on educational MDRO sheet. 9. Encourage and monitor nutritional status daily and consult cro if indicated. 10. Implement neutropenic guidelines as needed. Outcome: Progressing Note: Evaluation of progress towards goal: Patient is on antibiotics for infection. Problem: Knowledge Deficit Goal: Patient/patient statement services representative demonstrates understanding of disease process, treatment plan,medications, and discharge instructions Description: INTERVENTIONS 1. Complete learning assessment and assess knowledge base 2. Provide teaching at level of understanding 3. Provide teaching via preferred learning method(s) Outcome: Progressing Note: Evaluation of progress towards goal: Patient understands plan of care at this time. Problem: Discharge Planning Goal: Discharge to post-acute care, other facility, or home with appropriate resources Description: Patient's goal is: INTERVENTIONS 1. Conduct assessment to determine patient/family and health care team treatment goals, and need for post-acute services based on payer coverage, community resources, and patient preferences, and barriers to discharge 2. Coordinate with Social work, Care Navigation, and Utilization Review to arrange appropriate level of services according to patient's needs based on patient preference and payer coverage in collaboration with the physician and health care team 3. Address psychosocial, clinical, and financial barriers to discharge as identified in assessment in conjunction with the patient/family and health care team 4. Consult appropriate ancillary services (i.e.. PT/OT/ST, etc) as needed 5. Communicate with and update the patient/family, physician, and health care team regarding progress on the discharge plan 6. Identify discharge learning needs (meds, wound care, etc). 7. Arrange for needed discharge transportation as appropriate Outcome: Progressing Note: Evaluation of progress towards goal: Patient plans to return home. Problem: Moderate - High Risk Fall Score Description: Clark Fall Score of =/> 25 or indicated by [facility] Assessment Goal: Patient should be free from fall Description: Interventions: 1. [place] to environment 2. Hourly rounds addressing the 4 P's (Pain, Positioning, Possessions, Potty) 3. Clear area of hazards (spills, clutter, electrical cords, unnecessary equipment) 4. Place equipment (bed & TV controls, call light, phone, urinal) within reach 5. Encourage patient to wear glasses and hearing aides as appropriate 6. Maintain bed in lowest position 7. Lock wheels on bed/wheelchair 8. Provide adequate lighting, including night light 9. Assess need for additional bedding, food/fluids, pain med's prior to sleep/routinely 10. Provide gripper slippers or personal non-skid footwear 11. Teach patient and patient statement services representative to maintain environment for safety and engage in all aspects of fall prevention program 12. Remind patient to call for help before getting out of bed 13. Initiate bed/chair/exit alarms supportive devices as appropriate, (chair wedge, no-skid floor mat, raised edge mattress, hip protectors) 14. Locate patient bed assignment for optimal visualization 15. Evaluate and identify Safe Patient Handling Equipment needs 16. Provide supervision when out of bed or chair 17. Utilize gait belt as needed to assist with ambulation 18. Place adaptive equipment (cane, walker) within reach 19. Request patient statement services representative bring adaptive equipment/mobility aids from home or obtain and provide as needed 20. Consult pharmacy regarding effects of med's affecting mobility, cognition, and alternatives 21. Obtain physician order for PT if risk factors associated with mobility are present 22. Obtain physician order for OT as appropriate 23. Utilize diversional activities 24. Educate patient and patient statement services representative how to maintain a safe environment during visitationtimes (notify nurse prior to leaving bedside) 25. Consider appropriateness of medical or non-director medical 26. Set up voiding schedule as appropriate (every 2 hours) Outcome: Progressing Note: Evaluation of progress towards goal: Patient is free of falls at this time. documented in this encounter Plan of Treatment Not on file documented as of this encounter Goals Goal Patient Goal Type Associated Problems Recent Progress Patient-Stated? Author home General Yes Anastacia Bartlett RN Note: Evaluation of progress towards goal: Patient stated home with home care or possible SNF depending on discharge needs. documented as of this encounter Procedures Procedure Name Priority Date/Time Associated Diagnosis Comments CBC WITH AUTO DIFFERENTIAL Routine 10/28/2024 5:12 AM EDT PROTIME & INR Routine 10/28/2024 5:12 AM EDT MAGNESIUM Routine 10/28/2024 5:12 AM EDT COMPREHENSIVE METABOLIC PANEL Routine 10/28/2024 5:12 AM EDT PHOSPHORUS Routine 10/28/2024 1:45 AM EDT POTASSIUM Routine 10/27/2024 6:19 PM EDT PHOSPHORUS Routine 10/27/2024 6:19 PM EDT MAGNESIUM Add-On 10/27/2024 6:19 PM EDT C DIFFICILE BY PCR Routine 10/27/2024 11 :20 AM EDT PROTIME & INR Routine 10/27/2024 6:37 AM EDT CBC WITH AUTO DIFFERENTIAL Routine 10/27/2024 6:36 AM EDT PHOSPHORUS Routine 10/27/2024 6:36 AM EDT MAGNESIUM Routine 10/27/2024 6:36 AM EDT COMPREHENSIVE METABOLIC PANEL Routine 10/27/2024 6:36 AM EDT MAGNESIUM Routine 10/26/2024 9:59 PM EDT BEDSIDE GLUCOSE Routine 10/26/2024 5:43 PM EDT BEDSIDE GLUCOSE Routine 10/26/2024 11:24 AM EDT BEDSIDE GLUCOSE Routine 10/26/2024 9:13 AM EDT BEDSIDE GLUCOSE Routine 10/26/2024 8:37 AM EDT LDH Add-On 10/26/2024 8:30 AM EDT MAGNESIUM Add-On 10/26/2024 8:30 AM EDT HAPTOGLOBIN Routine 10/26/2024 8:30 AM EDT BILIRUBIN, DIRECT Add-On 10/26/2024 8:3 0 AM EDT CBC WITH AUTO DIFFERENTIAL Routine 10/26/2024 7:09 AM EDT PROTIME & INR Routine 10/26/2024 7:09 AM EDT PHOSPHORUS Routine 10/26/2024 7:09 AM EDT MAGNESIUM Routine 10/26/2024 7:09 AM EDT COMPREHENSIVE METABOLIC PANEL Routine 10/26/2024 7:09 AM EDT THYROID PROFILE INCLUDES TSH FT4 Add-On 10/25/2024 1:47 PM EDT HEMOGLOBIN A1C Add-On 10/25/2024 1:47 PM EDT documented in this encounter Results * (ABNORMAL) Protime & INR (10/28/2024 5:12 AM EDT) PROTIME 13.4(H) 9.8 - 13.2 sec 10/28/2024 6:39 AM EDT [facility] INR 1.2 0.9 - 1.2 10/28/2024 6:39 AM EDT [facility] Blood 10/28/2024 5:12 AM EDT 10/28/2024 5:12 AM EDT us Jacinto Goode MD LAB BLOOD ORDERABLES Fin al Result [facility] [address] [place] [address], [place] [phone] * Magnesium (10/28/2024 5:12 AM EDT) MAGNESIUM 1.8 1.8 - 2.6 mg/dL 10/28/2024 6:25 AM EDT [facility] Blood 10/28/2024 5:12 AM EDT 10/28/2024 5:12 AM EDT us Jacinto Goode MD LAB BLOOD ORDERABLES Fin al Result [facility] [address] [place] [address], [place] [phone] * (ABNORMAL) Comprehensive metabolic panel (10/28/2024 5:12 AM EDT) SODIUM 139 134 - 146 mmol/L 10/28/2024 6:25 AM EDT [facility] POTASSIUM 3.4(L) 3.5 - 5.0 mmol/L 10/28/2024 6:25 AM EDT [facility] CHLORIDE 108 98 - 109 mmol/L 10/28/2024 6:25 AM EDT [facility] CARBON DIOXIDE 23 22 - 32 mmol/L 10/28/2024 6:25 AM EDT [facility] ANION GAP 8 5 - 15 mmol/L 10/28/2024 6:25 AM EDT [facility] BLOOD UREA NITROGEN 35(H) 5 - 27 mg/dL 10/28/2024 6:25 AM EDT [facility] CREATININE 1.91(H) 0.60 - 1.30 mg/dL 10/28/2024 6:25 AM EDT [facility] Comment:METHOD TRACEABLE TO IDMS STANDARD GLUCOSE 88 65 - 99 mg/dL 10/28/2024 6:25 AM EDT [facility] CALCIUM 8.0(L) 8.5 - 10.5 mg/dL 10/28/2024 6:25 AM EDT [facility] TOTAL PROTEIN 6.3 6.0 - 8.0 g/dL 10/28/2024 6:25 AM EDT [facility] ALBUMIN 2.5(L) 3.2 - 5.3 g/dL 10/28/2024 6:25 AM EDT [facility] ALKALINE PHOSPHATASE 71 39 - 130 U/L 10/28/2024 6:25 AM EDT [facility] AST 36 <=41 U/L 10/28/2024 6:25 AM EDT [facility] ALT 17 <=40 U/L 10/28/2024 6:25 AM EDT [facility] BILIRUBIN,TOTAL 1.1 0.3 - 1.2 mg/dL 10/28/2024 6:25 AM EDT [facility] EGFR Non-Race Dependent 38(L) >=60 ml/min/1.7 3sq.m 10/28/2024 6:25 AM EDT [facility] Comment: Reported eGFR is based on the CKD-EPI 2020 equation that does not use a race coefficient. Blood 10/28/2024 5:12 AM EDT 10/28/2024 5:12 AM EDT us Jacinto Goode MD LAB BLOOD ORDERABLES Fin al Result [facility] [address] [place] [address], * (ABNORMAL) CBC auto differential (10/28/2024 5:12 AM EDT) WBC 5.4 4 - 11 x10E9/L 10/28/2024 6:06 AM EDT [facility] RBC Count 3.81(L) 4.1 - 5.7 X10E12/L 10/28/2024 6:06 AM EDT [facility] Hemoglobin 12.1(L) 13 - 17 g/dL 10/28/2024 6:06 AM EDT [facility] Hematocrit 36.0(L) 39 - 50 % 10/28/2024 6:06 AM EDT [facility] MCV 95 80 - 100 fL 10/28/2024 6:06 AM EDT [facility] MCH 31.8 27 - 34 pg 10/28/2024 6:06 AM EDT [facility] MCHC 33.7 32 - 36 g/dL 10/28/2024 6:06 AM EDT [facility] RDW 14.0 11.5 - 15 % 10/28/2024 6:06 AM EDT [facility] Platelet Count 109(L) 150 - 450 X10E9/L 10/28/2024 6:06 AM EDT [facility] MPV 9.2 7 - 12 fL 10/28/2024 6:06 AM EDT [facility] Neutrophils Relative 54.0 % 10/28/2024 6:06 AM EDT [facility] Lymphocytes Relative 28.5 % 10/28/2024 6:06 AM EDT [facility] Monocytes Relative 12.7 % 10/28/2024 6:06 AM EDT [facility] Eosinophils Relative 4.1 % 10/28/2024 6:06 AM EDT [facility] Basophils Relative 0.7 % 10/28/2024 6:06 AM EDT [facility] Neutrophils Absolute (A) 2.9 1.5 - 6.6 10*3/uL 10/28/2024 6:06 AM EDT [facility] Lymphocytes Absolute 1.5 1.0 - 3.5 10*3/uL 10/28/2024 6:06 AM EDT [facility] Monocytes Absolute 0.7 0.0 - 0.9 10*3/uL 10/28/2024 6:06 AM EDT [facility] Eosinophils Absolute 0.2 0.0 - 0.4 10*3/uL 10/28/2024 6:06 AM EDT [facility] Basophils Absolute 0.0 0.0 - 0.2 10*3/uL 10/28/2024 6:06 AM EDT [facility] Differential Type AUTOMATED DIFFERENTIAL 10/28/2024 6:06 AM EDT [facility] Blood 10/28/2024 5:12 AM EDT 10/28/2024 5:12 AM EDT us Jacinto Goode MD LAB BLOOD ORDERABLES Fin al Result [facility] [address] [place] [address], * (ABNORMAL) Phosphorus (10/28/2024 1:45 AM EDT) PHOSPHORUS 1.8(L) 2.4 - 4.9 mg/dL 10/28/2024 2:46 AM EDT [facility] Blood Venous blood / Unknown 10/28/2024 1:45 AM EDT 10/28/2024 1:50 AM EDT us Ishan Trevino MD LAB BLOOD ORDERABLES Final Re sult Performing Organization Address [facility] Co de Phone Number [facility] [address] [place] [address], * Magnesium (10/27/2024 6:19 PM EDT) MAGNESIUM 2.1 1.8 - 2.6 mg/dL 10/27/2024 7:55 PM EDT [facility] Blood Venous blood / Unknown 10/27/2024 6:19 PM EDT 10/27/2024 6:19 PM EDT us Jacinto Goode MD LAB BLOOD ORDERABLES Fin al Result Performing Organization Address [facility]/ZIP Co de Phone Number [facility] [address] [place] [address], * Potassium (10/27/2024 6:19 PM EDT) POTASSIUM 3.8 3.5 - 5.0 mmol/L 10/27/2024 7:11 PM EDT [facility] Blood Venous blood / Unknown 10/27/2024 6:19 PM EDT 10/27/2024 6:19 PM EDT us Jacinto Goode MD LAB BLOOD ORDERABLES Fin al Result [facility] [address] [place] [address], [place] [phone] * (ABNORMAL) Phosphorus (10/27/2024 6:19 PM EDT) [facility] PHOSPHORUS 1.5(L) 2.4 - 4.9 mg/dL 10/27/2024 7:11 PM EDT [facility] Blood Venous blood / Unknown 10/27/2024 6:19 PM EDT 10/27/2024 6:19 PM EDT Jacinto Goode MD LAB BLOOD ORDERABLES Fin al Result Performing Organization Address City/[facility]/ZIP Co de Phone Number [facility] [address] [place] [address], * (ABNORMAL) C difficile by PCR (10/27/2024 11:20 AM EDT) [facility] TOXIGENIC C DIFF Positive(A) Negative 025 2:27 PM EDT [facility] 027 NAP1 Presumptive Negative Presumptive Negative 10/27/2024 2:27 PM EDT [facility] Comment:Assay methodology is nucleic acid amplification by real-time PCR for detection of C. difficile toxin gene sequences performed on [employer] Instrument System. Stool Feces / Unknown Collection / Unknown 10/27/2024 11:20 AM EDT 10/27/2024 12:18 PM EDT João Garcia MD BODY FLUIDS AND STOOLS OR DERABLES Final Result Performing Organization Address City/[facility]/ZIP Co de Phone Number [facility] [address] [place] [address], [place] [phone] * (ABNORMAL) Protime & INR (10/27/2024 6:37 AM EDT) [facility] PROTIME 13.5(H) 9.8 - 13.2 sec 10/27/2024 7:00 AM EDT [facility] INR 1.2 0.9 - 1.2 10/27/2024 7:00 AM EDT [facility] Blood 10/27/2024 6:37 AM EDT 10/27/2024 6:37 AM EDT us Jacinto Goode MD LAB BLOOD ORDERABLES Fin al Result [facility] [address] [place] [address], [place] [phone] * (ABNORMAL) Phosphorus (10/27/2024 6:36 AM EDT) PHOSPHORUS 1.4(L) 2.4 - 4.9 mg/dL 10/27/2024 7:18 AM EDT [facility] Blood 10/27/2024 6:36 AM EDT 10/27/2024 6:36 AM EDT us Jacinto Goode MD LAB BLOOD ORDERABLES Fin al Result Performing Organization Address City/[facility]/ZIP Co de Phone Number [facility] [address] [place] [address], [place] [phone] * Magnesium (10/27/2024 6:36 AM EDT) MAGNESIUM 1.8 1.8 - 2.6 mg/dL 10/27/2024 7:18 AM EDT [facility] Blood 10/27/2024 6:36 AM EDT 10/27/2024 6:36 AM EDT us Jacinto Goode MD LAB BLOOD ORDERABLES Fin al Result [facility] [address] [place] [address], [place] [phone] * (ABNORMAL) Comprehensive metabolic panel (10/27/2024 6:36 AM EDT) SODIUM 137 134 - 146 mmol/L 10/27/2024 7:18 AM EDT [facility] POTASSIUM 3.5 3.5 - 5.0 mmol/L 10/27/2024 7:18 AM EDT [facility] CHLORIDE 109 98 - 109 mmol/L 10/27/2024 7:18 AM EDT [facility] CARBON DIOXIDE 20(L) 22 - 32 mmol/L 10/27/2024 7:18 AM T [facility] ANION GAP 8 5 - 15 mmol/L 10/27/2024 7:18 AM T [facility] BLOOD UREA NITROGEN 33(H) 5 - 27 mg/dL 10/27/2024 7:18 AM T [facility] CREATININE 2.05(H) 0.60 - 1.30 mg/dL 10/27/2024 7:18 AM T [facility] Comment:METHOD TRACEABLE TO IDMS STANDARD GLUCOSE 95 65 - 99 mg/dL 10/27/2024 7:18 AM T [facility] CALCIUM 7.9(L) 8.5 - 10.5 mg/dL 10/27/2024 7:18 AM T [facility] TOTAL PROTEIN 6.1 6.0 - 8.0 g/dL 10/27/2024 7:18 AM T [facility] ALBUMIN 2.4(L) 3.2 - 5.3 g/dL 10/27/2024 7:18 AM T [facility] ALKALINE PHOSPHATASE 64 39 - 130 U/L 10/27/2024 7:18 AM T [facility] AST 31 <=41 U/L 10/27/2024 7:18 AM T [facility] ALT 14 <=40 U/L 10/27/2024 7:18 AM T [facility] BILIRUBIN,TOTAL 2.0(H) 0.3 - 1.2 mg/dL 10/27/2024 7:18 AM EDT [facility] EGFR Non-Race Dependent 35(L) >=60 ml/min/1.7 3sq.m 10/27/2024 7:18 AM EDT [facility] Comment: Reported eGFR is based on the CKD-EPI 2020 equation that does not use a race coefficient. Blood 10/27/2024 6:36 AM EDT 10/27/2024 6:36 AM EDT us Jacinto Goode MD LAB BLOOD ORDERABLES Fin al Result [facility] [address] [place] [address], [place] [phone] * (ABNORMAL) CBC auto differential (10/27/2024 6:36 AM EDT) WBC 7.9 4 - 11 x10E9/L 10/27/2024 6:56 AM EDT [facility] RBC Count 3.62(L) 4.1 - 5.7 X10E12/L 10/27/2024 6:56 AM EDT [facility] Hemoglobin 11.7(L) 13 - 17 g/dL 10/27/2024 6:56 AM EDT [facility] Hematocrit 34.8(L) 39 - 50 % 10/27/2024 6:56 AM EDT [facility] MCV 96 80 - 100 fL 10/27/2024 6:56 AM EDT [facility] MCH 32.2 27 - 34 pg 10/27/2024 6:56 AM EDT [facility] MCHC 33.5 32 - 36 g/dL 10/27/2024 6:56 AM EDT [facility] RDW 13.9 11.5 - 15 % 10/27/2024 6:56 AM EDT [facility] Platelet Count 101(L) 150 - 450 X10E9/L 10/27/2024 6:56 AM EDT [facility] MPV 8.8 7 - 12 fL 10/27/2024 6:56 AM EDT [facility] Neutrophils Relative 63.2 % 10/27/2024 6:56 AM EDT [facility] Lymphocytes Relative 23.5 % 10/27/2024 6:56 AM EDT [facility] Monocytes Relative 10.5 % 10/27/2024 6:56 AM EDT [facility] Eosinophils Relative 2.4 % 10/27/2024 6:56 AM EDT [facility] Basophils Relative 0.4 % 10/27/2024 6:56 AM EDT [facility] Neutrophils Absolute (A) 5.0 1.5 - 6.6 10*3/uL 10/27/2024 6:56 AM EDT [facility] Lymphocytes Absolute 1.9 1.0 - 3.5 10*3/uL 10/27/2024 6:56 AM EDT [facility] Monocytes Absolute 0.8 0.0 - 0.9 10*3/uL 10/27/2024 6:56 AM EDT [facility] Eosinophils Absolute 0.2 0.0 - 0.4 10*3/uL 10/27/2024 6:56 AM EDT [facility] Basophils Absolute 0.0 0.0 - 0.2 10*3/uL 10/27/2024 6:56 AM EDT [facility] Differential Type AUTOMATED DIFFERENTIAL 10/27/2024 6:56 AM EDT [facility] Blood 10/27/2024 6:36 AM EDT 10/27/2024 6:36 AM EDT us Jacinto Goode MD LAB BLOOD ORDERABLES Fin al Result [facility] [address] [place] [address], [place] [phone] * Magnesium (10/26/2024 9:59 PM EDT) MAGNESIUM 2.0 1.8 - 2.6 mg/dL 10/26/2024 10:31 PM EDT [facility] Blood Venous blood / Unknown Venipuncture / Unknown 10/26/2024 9:59 PM EDT 10/26/2024 9:59 PM EDT us Jyotsna Jose MD LAB BLOOD ORDERABLES Final Resul t Performing Organization Address City/[facility] Co de Phone Number [facility] [address] [place] [address], [place] [phone] * (ABNORMAL) Bedside Glucose *Place/Obtain serum glucose if >500 per glucometer. (10/26/2024 5:43 PM EDT) Bedside Glucose (POC) 110(H) 65 - 99 mg/dL 10/26/2024 5:44 PM EDT [facility] arterial/capilla ry 10/26/2024 5:43 PM EDT 10/26/2024 5:44 PM EDT us Jyotsna Jose MD POINT OF CARE TEST ORDERABLES Fi nal Result Performing Organization Address [facility] de Phone Number [facility] [address] [place] [address], [place] * (ABNORMAL) Bedside Glucose *Place/Obtain serum glucose if >500 per glucometer. (10/26/2024 11:24AM EDT) Bedside Glucose (POC) 138(H) 65 - 99 mg/dL 10/26/2024 11:31 AM EDT [facility] arterial/capilla ry 10/26/2024 11:24 AM EDT 10/26/2024 11:30 AM EDT us Jyotsna Jose MD POINT OF CARE TEST ORDERABLES Fi nal Result Performing Organization Address [facility] Co de Phone Number [facility] [address] [place] [address], [place] * Bedside Glucose *Place/Obtain serum glucose if >500 per glucometer. (10/26/2024 9:13 AM EDT) Bedside Glucose (POC) 87 65 - 99 mg/dL 10/26/2024 9:15 AM EDT [facility] arterial/capilla ry 10/26/2024 9:13 AM EDT 10/26/2024 9:15 AM EDT us Jyotsna Jose MD POINT OF CARE TEST ORDERABLES Fi nal Result Performing Organization Address [facility] de Phone Number [facility] [address] [place] [address], [place] * (ABNORMAL) Bedside Glucose *Place/Obtain serum glucose if >500 per glucometer. (10/26/2024 8:37 AM EDT) Bedside Glucose (POC) 44(LL) 65 - 99 mg/dL 10/26/2024 8:38 AM EDT [facility] arterial/capilla ry 10/26/2024 8:37 AM EDT 10/26/2024 8:38 AM EDT us Jyotsna Jose MD POINT OF CARE TEST ORDERABLES Fi nal Result Performing Organization Address [facility] de Phone Number [facility] [address] [place] [address], [place] * (ABNORMAL) Magnesium (10/26/2024 8:30 AM EDT) MAGNESIUM 1.4(L) 1.8 - 2.6 mg/dL 10/26/2024 4:33 PM EDT [facility] Blood Venous blood / Unknown 10/26/2024 8:30 AM EDT 10/26/2024 8:35 AM EDT us Jyotsna Jose MD LAB BLOOD ORDERABLES Final Resul t Performing Organization Address [facility] Co de Phone Number [facility] [address] [place] [address], [place] [phone] * (ABNORMAL) Bilirubin, direct (10/26/2024 8:30 AM EDT) BILIRUBIN,DIRE CT 1.9(H) <=0.4 mg/dL 10/26/2024 9:06 AM EDT [facility] Blood Venous blood / Unknown 10/26/2024 8:30 AM EDT 10/26/2024 8:35 AM EDT us João Garcia MD LAB BLOOD ORDERABLES Susana l Result [facility] [address] [place] [address], [place] [phone] * Haptoglobin (10/26/2024 8:30 AM EDT) HAPTOGLOBIN 130 32 - 228 mg/dL 10/26/2024 9:06 AM EDT [facility] Blood Venous blood / Unknown 10/26/2024 8:30 AM EDT 10/26/2024 8:35 AM EDT us João Garcia MD LAB BLOOD ORDERABLES Susana l Result [facility] [address] [place] [address], [place] [phone] * LDH (10/26/2024 8:30 AM EDT) LDH 184 100 - 235 U/L 10/26/2024 9:06 AM EDT [facility] Blood Venous blood / Unknown 10/26/2024 8:30 AM EDT 10/26/2024 8:35 AM EDT us João Garcia MD LAB BLOOD ORDERABLES Susana l Result [facility] [address] [place] [address], * (ABNORMAL) Protime & INR (10/26/2024 7:09 AM EDT) PROTIME 13.6(H) 9.8 - 13.2 sec 10/26/2024 7:47 AM EDT [facility] INR 1.2 0.9 - 1.2 10/26/2024 7:47 AM EDT [facility] Blood 10/26/2024 7:09 AM EDT 10/26/2024 7:09 AM EDT us Jacinto Goode MD LAB BLOOD ORDERABLES Fin al Result Performing Organization Address [facility]/ZIP Co de Phone Number [facility] [address] [place] [address], * Phosphorus (10/26/2024 7:09 AM EDT) PHOSPHORUS 2.8 2.4 - 4.9 mg/dL 10/26/2024 8:14 AM EDT [facility] Comment:R-Specimen slightly hemolyzed, results increased Blood 10/26/2024 7:09 AM EDT 10/26/2024 7:09 AM EDT us Jacinto Goode MD LAB BLOOD ORDERABLES Fin al Result [facility] [address] [place] [address], * (ABNORMAL) Magnesium (10/26/2024 7:09 AM EDT) MAGNESIUM 1.4(L) 1.8 - 2.6 mg/dL 10/26/2024 8:14 AM EDT [facility] Blood 10/26/2024 7:09 AM EDT 10/26/2024 7:09 AM EDT Jacinto Goode MD LAB BLOOD ORDERABLES Fin al Result [facility] [address] [place] [address], [place] [phone] * (ABNORMAL) Comprehensive metabolic panel (10/26/2024 7:09 AM EDT) SODIUM 139 134 - 146 mmol/L 10/26/2024 8:16 AM EDT [facility] POTASSIUM 4.1 3.5 - 5.0 mmol/L 10/26/2024 8:16 AM EDT [facility] CHLORIDE 109 98 - 109 mmol/L 10/26/2024 8:16 AM EDT [facility] CARBON DIOXIDE 17(L) 22 - 32 mmol/L 10/26/2024 8:16 AM EDT [facility] ANION GAP 13 5 - 15 mmol/L 10/26/2024 8:16 AM EDT [facility] BLOOD UREA NITROGEN 27 5 - 27 mg/dL 10/26/2024 8:16 AM EDT [facility] CREATININE 1.71(H) 0.60 - 1.30 mg/dL 10/26/2024 8:16 AM EDT [facility] Comment:METHOD TRACEABLE TO IDMS STANDARD GLUCOSE 36(LL) 65 - 99 mg/dL 10/26/2024 8:16 AM EDT [facility] CALCIUM 7.7(L) 8.5 - 10.5 mg/dL 10/26/2024 8:16 AM EDT [facility] TOTAL PROTEIN 6.3 6.0 - 8.0 g/dL 10/26/2024 8:16 AM EDT [facility] ALBUMIN 2.4(L) 3.2 - 5.3 g/dL 10/26/2024 8:16 AM EDT [facility] ALKALINE PHOSPHATASE 69 39 - 130 U/L 10/26/2024 8:16 AM EDT [facility] AST 42(H) <=41 U/L 10/26/2024 8:16 AM EDT [facility] ALT 18 <=40 U/L 10/26/2024 8:16 AM EDT [facility] BILIRUBIN,TOTAL 3.0(H) 0.3 - 1.2 mg/dL 10/26/2024 8:16 AM EDT [facility] EGFR Non-Race Dependent 44(L) >=60 ml/min/1.7 3sq.m 10/26/2024 8:16 AM EDT [facility] Comment: Reported eGFR is based on the CKD-EPI 2020 equation that does not use a race coefficient. Blood 10/26/2024 7:09 AM EDT 10/26/2024 7:09 AM EDT us Jacinto Goode MD LAB BLOOD ORDERABLES Fin al Result [facility] [address] [place] [address], [place] [phone] * (ABNORMAL) CBC auto differential (10/26/2024 7:09 AM EDT) WBC 10.0 4 - 11 x10E9/L 10/26/2024 8:43 AM EDT [facility] RBC Count 3.66(L) 4.1 - 5.7 X10E12/L 10/26/2024 8:43 AM EDT [facility] Hemoglobin 11.9(L) 13 - 17 g/dL 10/26/2024 8:43 AM EDT [facility] Hematocrit 34.7(L) 39 - 50 % 10/26/2024 8:43 AM EDT [facility] MCV 95 80 - 100 fL 10/26/2024 8:43 AM EDT [facility] MCH 32.4 27 - 34 pg 10/26/2024 8:43 AM EDT [facility] MCHC 34.1 32 - 36 g/dL 10/26/2024 8:43 AM EDT [facility] RDW 13.8 11.5 - 15 % 10/26/2024 8:43 AM EDT [facility] Platelet Count 10/26/2024 8:43 AM EDT [facility] Comment:Estimate of platelet s, normal. Platelet clumps preclude count. MPV 10/26/2024 8:43 AM EDT [facility] Comment:Platelet clumps prec lude count. Neutrophils Relative 80.0 % 10/26/2024 8:43 AM EDT [facility] Lymphocytes Relative 8.8 % 10/26/2024 8:43 AM EDT [facility] Monocytes Relative 10.8 % 10/26/2024 8:43 AM EDT [facility] Eosinophils Relative 0.2 % 10/26/2024 8:43 AM EDT [facility] Basophils Relative 0.2 % 10/26/2024 8:43 AM EDT [facility] Neutrophils Absolute (A) 8.0(H) 1.5 - 6.6 10*3/uL 10/26/2024 8:43 AM EDT [facility] Lymphocytes Absolute 0.9(L) 1.0 - 3.5 10*3/uL 10/26/2024 8:43 AM EDT [facility] Monocytes Absolute 1.1(H) 0.0 - 0.9 10*3/uL 10/26/2024 8:43 AM EDT [facility] Eosinophils Absolute 0.0 0.0 - 0.4 10*3/uL 10/26/2024 8:43 AM EDT [facility] Basophils Absolute 0.0 0.0 - 0.2 10*3/uL 10/26/2024 8:43 AM T [facility] Differential Type AUTOMATED DIFFERENTIAL 10/26/2024 8:43 AM T [facility] Blood 10/26/2024 7:09 AM EDT 10/26/2024 7:09 AM EDT Jacinto Goode MD LAB BLOOD ORDERABLES Fin al Result [facility] [address] [place] [address], [place] [phone] * Thyroid profile includes TSH FT4 (10/25/2024 1:47 PM EDT) FREE T4 0.97 0.61 - 1.60 ng/dL 10/25/2024 10:36 PM EDT [facility], [place] TSH 1.07 0.49 - 4.67 uIU/mL 10/25/2024 10:36 PM EDT [facility] [place] Blood Venous blood / Unknown Port / Unknown 10/25/2024 1:47 PM EDT 10/25/2024 1:50 PM EDT Jacinto Goode MD LAB BLOOD ORDERABLES Fin al Result [facility] [place] [address] [place] [address], * Hemoglobin A1c (10/25/2024 1:47 PM EDT) HEMOGLOBIN A1C 4.4 4.4 - 5.6 % 10/26/2024 5:45 AM EDT [facility] Comment: ADA Guidelines Result HgbA1c Normal : less than 5.7 % Prediabetes : 5.7 % to 6.4 % Diabetes : > 6.4 % Use with caution in patients with abnormal hemoglobin variants as the half-life of red blood cells and in vivo glycation rates are affected. EST. AVERAGE GLUCOSE 80 mg/dL 10/26/2024 5:45 AM EDT [facility] Blood Venous blood / Unknown Port / Unknown 10/25/2024 1:47 PM EDT 10/25/2024 1:50 PM EDT us Jacinto Goode MD LAB BLOOD ORDERABLES Fin al Result [facility] [address] [place] [address], [place] [phone] documented in this encounter Visit Diagnoses Diagnosis Scrotal abscess- Primary Other inflammatory disorder of male genital organs Scrotal abscess Other inflammatory disorder of male genital organs documented in this encounter Admitting Diagnoses Diagnosis Scrotal abscess Other inflammatory disorder of male genital organs documented in this encounter Administered Medications Inactive Administered Medications - up to 3 most recent administrations Medication Order MAR Action Action Date Dose Rate Site acetaminophen (TYLENOL) tablet 650 mg 650 mg, oral, Every 6 hours PRN, mild pain - pain scale 1-3, temperature greater than 38 C, headaches, moderate pain - pain scale 4-6, severe pain - pain scale 7-10, Starting on Sat10/25/24 at 2250 Given 10/28/2024 12:56 PM EDT 650 mg Given 10/27/2024 9:12 AM EDT 650 mg Given 10/26/2024 7:56 PM EDT 650 mg apixaban (ELIQUIS) tablet 5 mg 5 mg, oral, 2 times daily, First dose on Sat10/27/24 at 1445, Indication: Nonvalvular Atrial Fibrillation (NVAF) Given 10/28/2024 10:06 AM EDT 5 mg Given 10/27/2024 8:53 PM EDT 5 mg Given 10/27/2024 3:37 PM EDT 5 mg bumetanide (BUMEX) tablet 2 mg 2 mg, oral, 2 times daily before meals, First dose on Sat10/26/24 at 0700 Given 10/28/2024 6:23 AM EDT 2 mg Given 10/27/2024 3:37 PM EDT 2 mg Given 10/27/2024 6:00 AM EDT 2 mg calcium gluconate 3,000 mg in sodium chloride 0.9 % 100 mL IVPB 3,000 mg, intravenous, at 43.3 mL/hr, Administer over 3 Hours, As needed, ionized calcium 3.5 to 3.9 mg/dL, Starting on Sat10/25/24 at 2130, IV Administration of calcium via a central or deep vein preferred. Avoid administration in small hand veins VESICANT (RED) calcium gluconate 4,000 mg in sodium chloride 0.9 % 250 mL IVPB 4,000 mg, intravenous, at 72.5 mL/hr, Administer over 4 Hours, As needed, ionized calcium 3.4 mg/dL or less, Starting on Sat10/25/24 at 2130, IV administration of calcium via a central or deep vein is preferred. Avoid administration in small hand veins. VESICANT (RED) calcium gluconate IVPB 2000 mg/100 mL (20 mg/mL premix) 2,000 mg, intravenous, at 50 mL/hr, Administer over 2 Hours, As needed, ionized calcium 4 to 4.3 mg/dL, Starting on Sat10/25/24 at 2130, IV Administration of calcium via a central or deep vein preferred. Avoid administration in small hand veins VESICANT (RED) clopidogreL (PLAVIX) tablet 75 mg 75 mg, oral, Daily, First dose on Sat10/26/24 at 0900, Look-alike/sound-alike medication - verify indication for use. Given 10/28/2024 10:04 AM EDT 75 mg Given 10/27/2024 9:01 AM EDT 75 mg Given 10/26/2024 8:56 AM EDT 75 mg dextrose (GLUTOSE) 40 % gel 15 g 15 g, oral, As needed, low blood sugar, blood glucose less than 70 mg/dL, Starting on Sat10/25/24 at 2028, If patient conscious and taking PO. If blood glucose is not greater than 70 mg/dL after initial treatment, repeat treatment. dextrose 5 % (D5W) infusion 100 mL/hr, intravenous, Continuous PRN, blood glucose less than 70 mg/dL, Starting on Sat10/25/24 at 2028, Use immediately following dextrose 50% or glucagon treatment for patients who are unconscious or NPO. Contact prescriber for additional orders. If blood glucose is not greater than 70 mg/dL after initial treatment, repeat treatment. dextrose 50 % in water (D50W) 50% solution 25 mL 25 mL, intravenous, As needed, low blood sugar, blood glucose less than 70 mg/dL and unconscious or NPO with IV access, Starting on Sat10/25/24 at 2028, Push over 1-3 minutes STAT. If conscious and not NPO, immediately follow with meal tray or high protein (7 grams) snack if tray not available. If NPO, initiate 5% dextrose in water at 100 mL/hr and contact prescriber for additional orders. If blood glucose is not greater than 70 mg/dL after initial treatment, repeat treatment. VESICANT (RED) Warning: HYPERTONIC solution. glucagon HCL injection 1 mg 1 mg, intramuscular, As needed, low blood sugar, blood glucose less than 70 mg/dL and unconscious or NPO without IV access., Starting on [place] 10/25/24 at 2028, If conscious and not NPO, immediately follow with meal tray or high protein (7Grams) snack if tray not available. If NPO, initiate IV 5% Dextrose/Water at 100 mL/hr and contact prescriber for additional orders. If blood glucose is not greater than 70 mg/dL after initial treatment, repeat treatment. hydrALAZINE (APRESOLINE) injection 10 mg 10 mg, intravenous, Every 8 hours PRN, high blood pressure, Starting on Sat10/25/24 at 2246, For systolic blood pressure greater than 180 mmHg Look-alike/sound-alike medication - verify indication for use. Administer IV doses as a slow IV push; maximum rate: 5 mg/minute. lidocaine PF (XYLOCAINE) 10 mg/mL (1 %) injection 100 mg 100 mg (10 mL), infiltration, Once, On [place] 10/25/24 at 2000, For 1 dose Given 10/25/2024 8:33 PM EDT 100 mg magnesium sulfate IVPB 2000 mg/50 mL in iso-osmotic water (40 mg/mL premix) 2,000 mg, intravenous, at 25 mL/hr, Administer over 120 Minutes, As needed, Magnesium level 1.7 to 1.9 mg/dL, or Ionized Magnesium level 0.45 to 0.5 mmol/L., Starting on [place] 10/25/24 at 2130, Recheck magnesium level 4 hours after infusion complete. With each magnesium result continue the replacement orders as needed. New Bag 10/27/2024 11:51 AM EDT 2,000 mg 25 mL/hr magnesium sulfate IVPB 4000 mg/100 mL in iso-osmotic water (40 mg/mL premix) 4,000 mg, intravenous, at 25 mL/hr, Administer over 240 Minutes, As needed, Magnesium level 1.6 mg/dL or less, or Ionized Magnesium level 0.44 mmol/L or less, Starting on Sat10/25/24 at 2130, Recheck magnesium level 4 hours after infusion complete. With each magnesium result continue the replacement orders as needed. New Bag 10/26/2024 11:40 AM EDT 4,000 mg 25 mL/hr melatonin (CIRCADIN) tablet 3 mg 3 mg, oral, Nightly PRN, sleep, Starting on Sat10/25/24 at 2027 metoprolol succinate XL (TOPROL XL) 24 hr tablet 50 mg 50 mg, oral, Daily, First dose on Sat10/26/24 at 0900, Look-alike/sound-alike medication - verify indication for use. Do not crush or chew. Given 10/28/2024 10:04 AM EDT 50 mg Given 10/27/2024 9:02 AM EDT 50 mg Given 10/26/2024 8:56 AM EDT 50 mg piperacillin-tazobactam (ZOSYN) 3.375 g in sodium chloride 0.9 % 50 mL IVPB W/ADAPTER 3.375 g, intravenous, at 12.5 mL/hr, Administer over 4 Hours, Every 8 hours, First dose on Sat10/26/24 at 2145, Dose adjusted per [facility] approved piperacillin-tazobactam policy. First dose of 3.375 gram to be 4 hours after 4.5 gram dose if frequency is every 8 hours or 8 hours after 4.5 gram dose if frequency is every 12 hours. For Vial-2-Bag: Attach bag and vial to adapter - Use immediately after activating; dissolve drug prior to administration., Indication: Skin and soft tissue infection Rate/Dose Verify 10/27/2024 4:54 PM EDT 12.5 mL/hr New Bag 10/27/2024 2:26 PM EDT 3.375 g 12.5 mL/hr Rate/Dose Verify 10/27/2024 10:17 AM EDT 12.5 m L/hr piperacillin-tazobactam (ZOSYN) 3.375 g in sodium chloride 0.9 % 50 mL IVPB W/ADAPTER 3.375 g, intravenous, at 12.5 mL/hr, Administer over 4 Hours, Every 8 hours, First dose on Sat10/27/24 at 2230, Dose adjusted per [facility] approved piperacillin-tazobactam policy. First dose of 3.375 gram to be 4 hours after 4.5 gram dose if frequency is every 8 hours or 8 hours after 4.5 gram dose if frequency is every 12 hours. For Vial-2-Bag: Attach bag and vial to adapter - Use immediately after activating; dissolve drug prior to administration., Indication: Skin and soft tissue infection New Bag 10/28/2024 10:20 AM EDT 3.375 g 12.5 mL/hr New Bag 10/27/2024 11:30 PM EDT 3.375 g 12.5 mL/hr polyethylene glycol (GLYCOLAX) packet 17 g 17 g, oral, Daily PRN, constipation, Starting on Sat10/25/24 at 2027, Look-alike/sound-alike medication - verify indication for use. Dissolve 1 packet (17 gm) in 8 ounces of water, juice, soda, coffee or tea. potassium chloride (K-TAB,KLOR-CON) CR tablet 20-40 mEq 20-40 mEq, oral, As needed, Potassium Supplementation, Starting on Sat10/25/24 at 2130, Progress to oral potassium replacement when patient tolerating oral intake. If dose administered, recheck potassium level 4 hours after last dose. For potassium level 3.4 to 3.8 mmol/L and GFR less than 30 mL/min or dialysis=20 mEq. For potassium level 3.1 to 3.3 mmol/L and GFR less than 30 mL/min or dialysis=30 mEq. For potassium level 3 mmol/L or less and GFR less than 30 mL/min or dialysis=40 mEq. Do not crush or chew. Given 10/27/2024 9:01 AM EDT 20 mEq potassium chloride (KAYCIEL) 20 mEq/15 mL solution 20-40 mEq 20-40 mEq, oral, As needed, Potassium Supplementation, Starting on Sat10/25/24 at 2130, Progress to oral potassium replacement when patient tolerating oral intake. If dose administered, recheck potassium level 4 hours after last dose. For potassium level 3.4 to 3.8 mmol/L and GFR less than 30 mL/min or dialysis=20 mEq. For potassium level 3.1 to 3.3 mmol/L and GFR less than 30 mL/min or dialysis=30 mEq. For potassium level 3 mmol/L or less and GFR less than 30 mL/min or dialysis=40 mEq. Must dilute before use - Mix in 3-8 ounces of water or juice before administration When administering in feeding tube, flush before and after per policy and monitor potassium levels potassium chloride IVPB 10 mEq/100 mL in water (0.1 mEq/mL premix) 10 mEq, intravenous, at 100 mL/hr, Administer over 60 Minutes, As needed, POTASSIUM REPLACEMENT, Starting on Sat10/25/24 at 2130, IV if unable to use oral/enteral with the current dosing strategies Potassium level 3 mmol/L or less administer Potassium Chloride 40 mEq Potassium level 3.1 to 3.3 mmol/L administer Potassium Chloride 30 mEq Potassium level 3.4 to 3.8 mmol/L administer Potassium Chloride 20 mEq Use central line when applicable. Recheck potassium level 1 hour after total IVPB infusion complete, With each potassium result continue the replacement orders as needed VESICANT (YELLOW) Infuse each 10 mEq over a minimum of 1 hour. prochlorperazine (COMPAZINE) injection 5 mg 5 mg, intravenous, Every 6 hours PRN, nausea, vomiting, Starting on Sat10/25/24 at 2027, When administered via IV Push, do not exceed 5 mg per minute QUEtiapine (SEROquel) tablet 12.5 mg 12.5 mg, oral, Nightly, First dose on Sat10/25/24 at 2200, Look-alike/sound-alike medication - verify indication for use. Given 10/27/2024 8:44 PM EDT 12.5 mg Given 10/26/2024 9:29 PM EDT 12.5 mg Given 10/25/2024 10:23 PM EDT 12.5 mg sacubitriL-valsartan (ENTRESTO) 97-103 mg per tablet 1 tablet 1 tablet, oral, 2 times daily, First dose on Sat10/25/24 at 2100, Look-alike/sound-alike medication - verify indication for use. Given 10/28/2024 10:05 AM EDT 1 tablet Given 10/27/2024 8:44 PM EDT 1 tablet Given 10/27/2024 9:02 AM EDT 1 tablet sennosides-docusate sodium (SENOKOT-S) 8.6-50 mg 2 tablet 2 tablet, oral, Nightly PRN, constipation, Starting on Sat10/25/24 at 2027 sod phos di, mono-K phos mono (K-PHOS NEUTRAL) 250 mg tablet 2 tablet 2 tablet, oral, As needed, for phosphorus level 2.3 mg/dL or less., Starting on Sat10/25/24 at 0, If dose administered, recheck phosphorus level 4 hours after last dose. Look-alike/sound-alike medication - verify indication for use. Give with a full glass of water. Given 10/28/2024 6:23 AM EDT 2 tablets Given 10/27/2024 8:46 PM EDT 2 tablets Given 10/27/2024 9:02 AM EDT 2 tablets sodium chloride 0.9 % bolus 500 mL, intravenous, at 492 mL/hr, Administer over 61 Minutes, Once, On Sat10/27/24 at 1515, For 1 dose New Bag 10/27/2024 3:40 PM EDT 500 mL 492 mL/hr sodium chloride 0.9 % flush 3 mL 3 mL, intravenous, As needed, line care, before and after each intermittent use, Starting on Sat10/25/24 at 2028 sodium chloride 0.9 % flush 3 mL 3 mL, intravenous, Every 12 hours scheduled, First dose on Sat10/25/24 at 2100 Given 10/28/2024 10:14 AM EDT 3 mL Given 10/27/2024 8:47 PM EDT 3 mL Given 10/27/2024 9:03 AM EDT 3 mL sodium chloride 0.9 % flush bag 25 mL, intravenous, at 100 mL/hr, Administer over 15 Minutes, As needed, line care, line care after IVPB administration, Starting on Sat10/25/24 at 2028 sodium chloride 0.9 % infusion 20 mL/hr, intravenous, Continuous PRN, to maintain patency of lines, Starting on Sat10/25/24 at 2028 sodium phosphate 20 mmol in sodium chloride 0.9 % 100 mL IVPB 20 mmol, intravenous, at 26.7 mL/hr, Administer over 4 Hours, As needed, for phosphorus level 2.3 mg/dL or less., Starting on Sat10/25/24 at 2130, Administer over 4 hours via dedicated line (central line). If administered, recheck phosphorus level 4 hours after infusion complete. Infuse using central line access. sodium phosphate 20 mmol in sodium chloride 0.9 % 250 mL IVPB 20 mmol, intravenous, at 42.8 mL/hr, Administer over 6 Hours, As needed, for phosphorus level 2.3 mg/dL or less, Starting on Sat10/25/24 at 2130, Administer over 6 hours via dedicated line (peripheral line). If administered, recheck phosphorus level 4 hours after infusion complete. spironolactone (ALDACTONE) tablet 25 mg 25 mg, oral, Daily, First dose on Sat10/26/24 at 0900 Given 10/28/2024 10:04 AM EDT 25 mg Given 10/27/2024 9:01 AM EDT 25 mg Given 10/26/2024 8:56 AM EDT 25 mg vancomycin (VANCOCIN) 50 mg/mL oral solution 125 mg 125 mg, oral, Every 6 hours scheduled, First dose on Sat10/27/24 at 1800, Indication: C. difficile infection Given 10/28/2024 12:42 PM EDT 125 mg Given 10/28/2024 6:24 AM EDT 125 mg Given 10/28/2024 1:14 AM EDT 125 mg documented in this encounter Active and Recently Administered Medications Times are shown in EDT. Scheduled Medication Order 10/26/2024 10/27/2024 10/28/2024 apixaban (ELIQUIS) tablet 5 mg 5 mg, oral, 2 times daily, First dose on Sat10/27/24 at 1445, Indication: Nonvalvular Atrial Fibrillation (NVAF) 1537 (Given - Provider: Mariann Burdick, CHRISTINA)205 (Given - Provider: Dayanna Sandoval RN) 1006 (Given - Provider: Mery Serra) bumetanide (BUMEX) tablet 2 mg 2 mg, oral, 2 times daily before meals, First dose on Sat10/26/24 at 0700 0625 (Given - Provider: Angelito Aguilar RN)1613 (Given - Provider: Mariann Bundy, CHRISTINA) 0600 (Given - Provider: Kyung Hoyos RN)1537 (Given - Provider: Mariann Burdick RN) 0623 (Given - Provider: Dayanna Sandoval RN)1600 (Due) clopidogreL (PLAVIX) tablet 75 mg 75 mg, oral, Daily, First dose on Sat10/26/24 at 0900, Look-alike/sound-alike medication - verify indication for use. 0856 (Given - Provider: Mariann Bundy RN) 0901 (Given - Provider: Mariann Burdick, CHRISTINA) 1004 (Given - Provider: Mery Serra) metoprolol succinate XL (TOPROL XL) 24 hr tablet 50 mg 50 mg, oral, Daily, First dose on Sat10/26/24 at 0900, Look-alike/sound-alike medication - verify indication for use. Do not crush or chew. 0856 (Given - Provider: Mariann Bundy RN) 0902 (Given - Provider: Mariann Burdick RN) 1004 (Given - Provider: Mery Serra) piperacillin-tazobactam (ZOSYN) 3.375 g in sodium chloride 0.9 % 50 mL IVPB W/ADAPTER (CANCELED) 3.375 g, intravenous, at 12.5 mL/hr, Administer over 4 Hours, Every 8 hours, First dose on Sat10/26/24 at 2145, Dose adjusted per [facility] approved piperacillin-tazobactam policy. First dose of 3.375 gram to be 4 hours after 4.5 gram dose if frequency is every 8 hours or 8 hours after 4.5 gram dose if frequency is every 12 hours. For Vial-2-Bag: Attach bag and vial to adapter - Use immediately after activating; dissolve drug prior to administration., Indication: Skin and soft tissue infection 2127 (New Bag - Provider: Kyung Hoyos RN)2307 (Rate/Dose Verify - Provider: Mariann Burdick RN) 0128 (Stop Bag - Provider: Kyung Hoyos RN)0558 (New Bag - Provider: Kyung Hoyos RN)0831 (Rate/Dose Verify - Provider: Mariann Burdick RN)1017 (Rate/Dose Verify - Provider: Mariann Burdick, CHRISTINA)1038 (Stop Bag - Provider: Mariann Burdick RN)1426 (New Bag - Provider: Mariann Burdick RN)1654 (Rate/Dose Verify - Provider: Mariann Burdick, RN)1840 (Stop Bag - Provider: Mariann Burdick, RN) piperacillin-tazobactam (ZOSYN) 3.375 g in sodium chloride 0.9 % 50 mL IVPB W/ADAPTER 3.375 g, intravenous, at 12.5 mL/hr, Administer over 4 Hours, Every 8 hours, First dose on Sat10/27/24 at 2230, Dose adjusted per [facility] approved piperacillin-tazobactam policy. First dose of 3.375 gram to be 4 hours after 4.5 gram dose if frequency is every 8 hours or 8 hours after 4.5 gram dose if frequency is every 12 hours. For Vial-2-Bag: Attach bag and vial to adapter - Use immediately after activating; dissolve drug prior to administration., Indication: Skin and soft tissue infection 2330 (New Bag - Provider: Dayanna Sandoval, RN) 0330 (Stop Bag - Provider: Dayanna Sandoval, CHRISTINA)1020 (New Bag - Provider: Mery Serra)1420 (Stop Bag - Provider: Mery Serra)1430 (Not Given - Provider: Mery Serra - Reason: Loss of IV access - Comment: Pt discharged) QUEtiapine (SEROquel) tablet 12.5 mg 12.5 mg, oral, Nightly, First dose on Sat10/25/24 at 2200, Look-alike/sound-alike medication - verify indication for use. 2128 (Given - Provider: Kyung Hoyos RN) 2043 (Given - Provider: Dayanna Sandoval, CHRISTINA) sacubitriL-valsartan (ENTRESTO) 97-103 mg per tablet 1 tablet 1 tablet, oral, 2 times daily, First dose on Sat10/25/24 at 2100, Look-alike/sound-alike medication - verify indication for use. 0856 (Given - Provider: Mariann Bundy RN)2128 (Given - Provider: Kyung Hoyos RN) 09 (Given - Provider: Mariann Burdick, RN)2043 (Given - Provider: Dayanna Sandoval, CHRISTINA) 1005 (Given - Provider: Mery Serra) sodium chloride 0.9 % bolus (COMPLETED) 500 mL, intravenous, at 492 mL/hr, Administer over 61 Minutes, Once, On Sat10/27/24 at 1515, For 1 dose 1540 (New Bag - Provider: Mariann Burdick, CHRISTINA)1641 (Stop Bag - Provider: Mariann Burdick RN) sodium chloride 0.9 % flush 3 mL 3 mL, intravenous, Every 12 hours scheduled, First dose on Sat10/25/24 at 2100 0855 (Given - Provider: Mariann Bundy RN)2123 (Given - Provider: Kyung Hoyos, CHRISTINA) 0903 (Given - Provider: Mariann Burdick, CHRISTINA)2047 (Given - Provider: Dayanna Sandoval, CHRISTINA) 1014 (Given - Provider: Mery Serra) spironolactone (ALDACTONE) tablet 25 mg 25 mg, oral, Daily, First dose on Sat10/26/24 at 0900 0856 (Given - Provider: Mariann Bundy RN) 0901 (Given - Provider: Mariann Burdick RN) 1004 (Given - Provider: Mery Serra) vancomycin (VANCOCIN) 50 mg/mL oral solution 125 mg 125 mg, oral, Every 6 hours scheduled, First dose on Sat10/27/24 at 1800, Indication: C. difficile infection 1940 (Given - Provider: Mariann Burdick RN) 0114 (Given - Provider: Dayanna Sandoval, CHRISTINA)0624 (Given - Provider: Dayanna Sandoval, CHRISTINA)1242 (Given - Provider: Mery Serra)1800 (Due) PRN Medication Order 10/26/2024 10/27/2024 10/28/2024 acetaminophen (TYLENOL) tablet 650 mg 650 mg, oral, Every 6 hours PRN, mild pain - pain scale 1-3, temperature greater than 38 C, headaches, moderate pain - pain scale 4-6, severe pain - pain scale 7-10, Starting on Sat10/25/24 at 2250 1137 (Given - Provider: Mariann Bundy RN)1956 (Given - Provider: Kyung Hoyos, CHRISTINA) 0912 (Given - Provider: Mariann Burdick, CHRISTINA) 1256 (Given - Provider: Mery Serra) calcium gluconate 3,000 mg in sodium chloride 0.9 % 100 mL IVPB 3,000 mg, intravenous, at 43.3 mL/hr, Administer over 3 Hours, As needed, ionized calcium 3.5 to 3.9 mg/dL, Starting on Sat10/25/24 at 2129, IV Administration of calcium via a central or deep vein preferred. Avoid administration in small hand veins VESICANT (RED) calcium gluconate 4,000 mg in sodium chloride 0.9 % 250 mL IVPB 4,000 mg, intravenous, at 72.5 mL/hr, Administer over 4 Hours, As needed, ionized calcium 3.4 mg/dL or less, Starting on Sat10/25/24 at 2129, IV administration of calcium via a central or deep vein is preferred. Avoid administration in small hand veins. VESICANT (RED) calcium gluconate IVPB 2000 mg/100 mL (20 mg/mL premix) 2,000 mg, intravenous, at 50 mL/hr, Administer over 2 Hours, As needed, ionized calcium 4 to 4.3 mg/dL, Starting on Sat10/25/24 at 2129, IV Administration of calcium via a central or deep vein preferred. Avoid administration in small hand veins VESICANT (RED) dextrose (GLUTOSE) 40 % gel 15 g 15 g, oral, As needed, low blood sugar, blood glucose less than 70 mg/dL, Starting on Sat10/25/24 at 2028, If patient conscious and taking PO. If blood glucose is not greater than 70 mg/dL after initial treatment, repeat treatment. dextrose 5 % (D5W) infusion 100 mL/hr, intravenous, Continuous PRN, blood glucose less than 70 mg/dL, Starting on Sat10/25/24 at 2028, Use immediately following dextrose 50% or glucagon treatment for patients who are unconscious or NPO. Contact prescriber for additional orders. If blood glucose is not greater than 70 mg/dL after initial treatment, repeat treatment. dextrose 50 % in water (D50W) 50% solution 25 mL 25 mL, intravenous, As needed, low blood sugar, blood glucose less than 70 mg/dL and unconscious or NPO with IV access, Starting on Sat10/25/24 at 2028, Push over 1-3 minutes STAT. If conscious and not NPO, immediately follow with meal tray or high protein (7 grams) snack if tray not available. If NPO, initiate 5% dextrose in water at 100 mL/hr and contact prescriber for additional orders. If blood glucose is not greater than 70 mg/dL after initial treatment, repeat treatment. VESICANT (RED) Warning: HYPERTONIC solution. glucagon HCL injection 1 mg 1 mg, intramuscular, As needed, low blood sugar, blood glucose less than 70 mg/dL and unconscious or NPO without IV access., Starting on Sat10/25/24 at 2028, If conscious and not NPO, immediately follow with meal tray or high protein (7Grams) snack if tray not available. If NPO, initiate IV 5% Dextrose/Water at 100 mL/hr and contact prescriber for additional orders. If blood glucose is not greater than 70 mg/dL after initial treatment, repeat treatment. hydrALAZINE (APRESOLINE) injection 10 mg 10 mg, intravenous, Every 8 hours PRN, high blood pressure, Starting on Sat10/25/24 at 2246, For systolic blood pressure greater than 180 mmHg Look-alike/sound-alike medication - verify indication for use. Administer IV doses as a slow IV push; maximum rate: 5 mg/minute. magnesium sulfate IVPB 2000 mg/50 mL in iso-osmotic water (40 mg/mL premix) 2,000 mg, intravenous, at 25 mL/hr, Administer over 120 Minutes, As needed, Magnesium level 1.7 to 1.9 mg/dL, or Ionized Magnesium level 0.45 to 0.5 mmol/L., Starting on Sat10/25/24 at 2130, Recheck magnesium level 4 hours after infusion complete. With each magnesium result continue the replacement orders as needed. 0853 (Canceled Entry - Provider: Mariann Bundy RN) 1151 (New Bag - Provider: Mariann Burdick, RN)1352 (Stop Bag - Provider: Mariann Burdick, RN) magnesium sulfate IVPB 4000 mg/100 mL in iso-osmotic water (40 mg/mL premix) 4,000 mg, intravenous, at 25 mL/hr, Administer over 240 Minutes, As needed, Magnesium level 1.6 mg/dL or less, or Ionized Magnesium level 0.44 mmol/L or less, Starting on Sat10/25/24 at 2130, Recheck magnesium level 4 hours after infusion complete. With each magnesium result continue the replacement orders as needed. 1140 (New Bag - Provider: Mariann Bundy, RN)1517 (Stop Bag - Provider: Mariann Burdick, CHRISTINA)1540 (Stop Bag - Provider: Mariann Bundy, CHRISTINA) melatonin (CIRCADIN) tablet 3 mg 3 mg, oral, Nightly PRN, sleep, Starting on 10/25/24 at 2027 polyethylene glycol (GLYCOLAX) packet 17 g 17 g, oral, Daily PRN, constipation, Starting on 10/25/24 at 2027, Look-alike/sound-alike medication - verify indication for use. Dissolve 1 packet (17 gm) in 8 ounces of water, juice, soda, coffee or tea. potassium chloride (K-TAB,KLOR-CON) CR tablet 20-40 mEq(Linked Group 1) 20-40 mEq, oral, As needed, Potassium Supplementation, Starting on 10/25/24 at 2130, Progress to oral potassium replacement when patient tolerating oral intake. If dose administered, recheck potassium level 4 hours after last dose. For potassium level 3.4 to 3.8 mmol/L and GFR less than 30 mL/min or dialysis=20 mEq. For potassium level 3.1 to 3.3 mmol/L and GFR less than 30 mL/min or dialysis=30 mEq. For potassium level 3 mmol/L or less and GFR less than 30 mL/min or dialysis=40 mEq. Do not crush or chew. 0901 (Given - Provider: Mariann Burdick, CHRISTINA) potassium chloride (KAYCIEL) 20 mEq/15 mL solution 20-40 mEq(Linked Group 1) 20-40 mEq, oral, As needed, Potassium Supplementation, Starting on 10/25/24 at 2130, Progress to oral potassium replacement when patient tolerating oral intake. If dose administered, recheck potassium level 4 hours after last dose. For potassium level 3.4 to 3.8 mmol/L and GFR less than 30 mL/min or dialysis=20 mEq. For potassium level 3.1 to 3.3 mmol/L and GFR less than 30 mL/min or dialysis=30 mEq. For potassium level 3 mmol/L or less and GFR less than 30 mL/min or dialysis=40 mEq. Must dilute before use - Mix in 3-8 ounces of water or juice before administration When administering in feeding tube, flush before and after per policy and monitor potassium levels 900 (See Alternative - Provider: Mariann Burdick RN) potassium chloride IVPB 10 mEq/100 mL in water (0.1 mEq/mL premix)(Linked Group 1) 10 mEq, intravenous, at 100 mL/hr, Administer over 60 Minutes, As needed, POTASSIUM REPLACEMENT, Starting on Sat10/25/24 at 2130, IV if unable to use oral/enteral with the current dosing strategies Potassium level 3 mmol/L or less administer Potassium Chloride 40 mEq Potassium level 3.1 to 3.3 mmol/L administer Potassium Chloride 30 mEq Potassium level 3.4 to 3.8 mmol/L administer Potassium Chloride 20 mEq Use central line when applicable. Recheck potassium level 1 hour after total IVPB infusion complete, With each potassium result continue the replacement orders as needed VESICANT (YELLOW) Infuse each 10 mEq over a minimum of 1 hour. 900 (See Alternative - Provider: Mariann Burdick RN) prochlorperazine (COMPAZINE) injection 5 mg 5 mg, intravenous, Every 6 hours PRN, nausea, vomiting, Starting on Sat10/25/24 at 2027, When administered via IV Push, do not exceed 5 mg per minute sennosides-docusate sodium (SENOKOT-S) 8.6-50 mg 2 tablet 2 tablet, oral, Nightly PRN, constipation, Starting on Sat10/25/24 at 2027 sod phos di, mono-K phos mono (K-PHOS NEUTRAL) 250 mg tablet 2 tablet(Linked Group 2) 2 tablet, oral, As needed, for phosphorus level 2.3 mg/dL or less., Starting on Sat10/25/24 at 2130, If dose administered, recheck phosphorus level 4 hours after last dose. Look-alike/sound-alike medication - verify indication for use. Give with a full glass of water. 901 (Given - Provider: Mariann Burdick RN)2045 (Given - Provider: Dayanna Sandoval, CHRISTINA) 622 (Given - Provider: Dayanna Sandoval, CHRISTINA) sodium chloride 0.9 % flush 3 mL 3 mL, intravenous, As needed, line care, before and after each intermittent use, Starting on Sat10/25/24 at 2028 sodium chloride 0.9 % flush bag 25 mL, intravenous, at 100 mL/hr, Administer over 15 Minutes, As needed, line care, line care after IVPB administration, Starting on Sat10/25/24 at 2028 sodium chloride 0.9 % infusion 20 mL/hr, intravenous, Continuous PRN, to maintain patency of lines, Starting on Sat10/25/24 at 2028 sodium phosphate 20 mmol in sodium chloride 0.9 % 100 mL IVPB(Linked Group 2) 20 mmol, intravenous, at 26.7 mL/hr, Administer over 4 Hours, As needed, for phosphorus level 2.3 mg/dL or less., Starting on Sat10/25/24 at 2130, Administer over 4 hours via dedicated line (central line). If administered, recheck phosphorus level 4 hours after infusion complete. Infuse using central line access. 901 (See Alternative - Provider: Mariann Burdick RN)2045 (See Alternative - Provider: Dayanna Sandoval, CHRISTINA) 622 (See Alternative - Provider: Dayanna Sandoval, RN) sodium phosphate 20 mmol in sodium chloride 0.9 % 250 mL IVPB(Linked Group 2) 20 mmol, intravenous, at 42.8 mL/hr, Administer over 6 Hours, As needed, for phosphorus level 2.3 mg/dL or less, Starting on Sat10/25/24 at 2130, Administer over 6 hours via dedicated line (peripheral line). If administered, recheck phosphorus level 4 hours after infusion complete. 901 (See Alternative - Provider: Mariann Burdick RN)2045 (See Alternative - Provider: Dayanna Sandoval, CHRISTINA) 622 (See Alternative - Provider: Dayanna Sandoval, RN) Linked Groups Order Group 1: potassium chloride (K-TAB,KLOR-CON) CR tablet 20-40 mEqJump to med 20-40 mEq, oral, As needed, Potassium Supplementation, Starting on Sat10/25/24 at 2130, Progress to oral potassium replacement when patient tolerating oral intake. If dose administered, recheck potassium level 4 hours after last dose. For potassium level 3.4 to 3.8 mmol/L and GFR less than 30 mL/min or dialysis=20 mEq. For potassium level 3.1 to 3.3 mmol/L and GFR less than 30 mL/min or dialysis=30 mEq. For potassium level 3 mmol/L or less and GFR less than 30 mL/min or dialysis=40 mEq. Do not crush or chew. Or potassium chloride (KAYCIEL) 20 mEq/15 mL solution 20-40 mEqJump to med 20-40 mEq, oral, As needed, Potassium Supplementation, Starting on 10/25/24 at 2130, Progress to oral potassium replacement when patient tolerating oral intake. If dose administered, recheck potassium level 4 hours after last dose. For potassium level 3.4 to 3.8 mmol/L and GFR less than 30 mL/min or dialysis=20 mEq. For potassium level 3.1 to 3.3 mmol/L and GFR less than 30 mL/min or dialysis=30 mEq. For potassium level 3 mmol/L or less and GFR less than 30 mL/min or dialysis=40 mEq. Must dilute before use - Mix in 3-8 ounces of water or juice before administration When administering in feeding tube, flush before and after per policy and monitor potassium levels Or potassium chloride IVPB 10 mEq/100 mL in water (0.1 mEq/mL premix)Jump to med 10 mEq, intravenous, at 100 mL/hr, Administer over 60 Minutes, As needed, POTASSIUM REPLACEMENT, Starting on 10/25/24 at 2130, IV if unable to use oral/enteral with the current dosing strategies Potassium level 3 mmol/L or less administer Potassium Chloride 40 mEq Potassium level 3.1 to 3.3 mmol/L administer Potassium Chloride 30 mEq Potassium level 3.4 to 3.8 mmol/L administer Potassium Chloride 20 mEq Use central line when applicable. Recheck potassium level 1 hour after total IVPB infusion complete, With each potassium result continue the replacement orders as needed VESICANT (YELLOW) Infuse each 10 mEq over a minimum of 1 hour. Group 2: sodium phosphate 20 mmol in sodium chloride 0.9 % 250 mL IVPBJump to med 20 mmol, intravenous, at 42.8 mL/hr, Administer over 6 Hours, As needed, for phosphorus level 2.3 mg/dL or less, Starting on 10/25/24 at 2130, Administer over 6 hours via dedicated line (peripheral line). If administered, recheck phosphorus level 4 hours after infusion complete. Or sodium phosphate 20 mmol in sodium chloride 0.9 % 100 mL IVPBJump to med 20 mmol, intravenous, at 26.7 mL/hr, Administer over 4 Hours, As needed, for phosphorus level 2.3 mg/dL or less., Starting on 10/25/24 at 2130, Administer over 4 hours via dedicated line (central line). If administered, recheck phosphorus level 4 hours after infusion complete. Infuse using central line access. Or sod phos di, mono-K phos mono (K-PHOS NEUTRAL) 250 mg tablet 2 tabletJump to med 2 tablet, oral, As needed, for phosphorus level 2.3 mg/dL or less., Starting on 10/25/24 at 2130, If dose administered, recheck phosphorus level 4 hours after last dose. Look-alike/sound-alike medication - verify indication for use. Give with a full glass of water. documented in this encounter Additional Health Concerns Infection Onset Date Last Indicated Resolved Time Enteric Rule-Out 10/27/2024 10/27/2024 10/27/2024 2:27 PM EDT C. Difficile 10/27/2024 10/27/2024 Assessment Noted Time PHQ-9 Depression Total Score: 0 10/27/19 10:08 AM EDT documented as of this encounter Care Teams Travel Accommodation Inspector Relationship Specialty Start Date End Date Estrella Medina APRN-RAMP LEAD [address] [place] [address] PCP - General Nurse Practitioner 05/19/24 documented as of this encounter
--- OUTSIDE RECORDS SUMMARY | 2024-11-03 16:41 | XMS_ITS | Encounter Summary ---
Author Organization [employer] Address [id number] [address] [place] [address] Care Team Providers Care Basket Machine Operator Name Role Phone Estrella Medina BUDGET EXAMINER-COMMERCIAL PRODUCTION EDITOR Primary Care Pr ovider Reason for Visit * Reason Onset Date Comments TRANSFER FROM [facility] TO [facility] 12/06/2020 Encounter Details Date Type Department Care Team ([facility] Contact Info) Description 12/06/2020 Telephone [facility] [address] [place] [phone] Devyn Betancourt MD [address] [place] [address] TRANSFER FROM [facility] TO [facility] Social History Tobacco Use Types Packs/Day Years Used Date Smoking Tobacco: Never Smokeless Tobacco: Never Alcohol Use Standard Drinks/Week Comments Yes 0 (1 standard drink = 0.6 oz pure alcohol) Daily drinker states I couldnt tell you how much Childcare Answer Date Recorded Childcare Unknown 10/17/2018 Employment Answer Date Recorded Employment Unknown 10/17/2018 Purpose - Life Answer Date Recorded Purpose and direction in life Unknown Sex and Gender Information Value Date Recorded Sex Assigned at Not on file Legal Sex Male 11:24 AM EDT Gender Identity Not on file Sexual Orientation Not on file COVID-19 Exposure Response Date Recorded In the last month, have you been in contact with someone who was confirmed or suspected to have Coronavirus / COVID-19? No / Unsure 12/06/2020 7:34 PM EDT documented as of this encounter Functional Status documented as of this encounter Miscellaneous Notes * Telephone Encounter - Concepcion Narayanan - 12/06/2020 3:19 PM EDT R/C from [facility] regarding pt needing transferred from [facility] ER to a cardiac stepdown bed @ [facility]. DX: HF. Per Benji VASQUEZ w/ Access, H closed to acute care but pt has been added to waitlist. Notified [facility] ER //keb documented in this encounter Plan of Treatment Not on file documented as of this encounter Visit Diagnoses Not on filedocumented in this encounter Additional Health Concerns Infection Onset Date Last Indicated Resolved Time Enteric Rule-Out Comment:C diff positive 01/02/2023 01/02/2023 01/02/2023 2:32 PM EDT C. Difficile 01/02/2023 01/02/2023 01/26/2023 11:1 3 PM EDT Enteric Rule-Out 02/10/2023 02/10/2023 02/10/2023 12:08 PM EDT COVID-19 Rule-Out 08/26/2023 08/26/2023 08/27/2023 12:44 AM EDT Enteric Rule-Out 10/27/2024 10/27/2024 10/27/2024 2:27 PM EDT C. Difficile 10/27/2024 10/27/2024 documented as of this encounter Care Teams Basket Machine Operator Relationship Specialty Start Date End Date Estrella Medina, BUDGET EXAMINER-COMMERCIAL PRODUCTION EDITOR [address] [place] [address] PCP - General Nurse Practitioner 05/19/24 documented as of this encounter
--- OUTSIDE RECORDS SUMMARY | 2024-11-03 16:41 | XMS_ITS | Encounter Summary ---
Author Organization [facility] Address [id number] [address] [place] [address] Care Team Providers Care Paste Mixer Liquid Name Role Phone Estrella Medina Neal MAINTENANCE MECHANIC ELEVATORS-FITTING ROOM ATTENDANT Primary Care Pr ovider Encounter Details Date Type Department Care Team (Late Contact Info) Description 04/26/2023 Orders Only [facility] - Infection [address] [facility] [place] [address] Sharon Matamoros, RN Social History Tobacco Use Types Packs/Day Years Used Date Smoking Tobacco: Never Smokeless Tobacco: Never Alcohol Use Standard Drinks/Week Comments Yes 28 (1 standard drink = 0.6 oz pu re alcohol) couple shots and couple beers Social Connection and Isolat ion Panel [NHANES] Answer Date Recorded In a typical week, how many times do you talk on the phone with family, friends, or neighbors? More than three times a week 12/26/2022 How often do you get togethe r with friends or relatives? More than three times a week 12/26/2022 How often do you attend chur ch or gnosticism services? Never 12/26/2022 Do you belong to any clubs o r organizations such as gnosticism groups, unions, fraternal or athletic groups, or school groups? No 12/26/2022 How often do you attend meet ings of the clubs or organizations you belong to? Never 12/26/2022 Are you , , di vorced, , never , or living with a partner? 12/26/2022 AUDIT-C Answer Date Recorded Q1: How often do you have a drink containing alcohol? 4 or more times a week 12/26/2022 Q2: How many drinks containi ng alcohol do you have on a typical day when you are drinking? 3 or 4 Q3: How often do you have si x or more drinks on one occasion? Daily or almost daily 12/26/2022 Overall Financial Resource Strain (CARDIA) Answe r Date Recorded How hard is it for you to pa y for the very basics like food, housing, medical care, and heating? Not very hard 12/26/2022 PHQ-2 Answer Date Recorded Total Score 0 12/26/2022 [facility] - Occupational Stress [...] medical appointments or from getting medications? No 01/2023 In the past 12 months, has l ack of transportation kept you from meetings, work, or from getting things needed for daily living? No 12/26/2022 Childcare Answer Date Recorded Do problems getting child ca re make it difficult for you to work or study? No 12/26/2022 Employment Answer Date Recorded Do you need help finding a [employer] al career center and/or a training program? No 12/26/2022 Hunger Screening Answer Date Recorded Within the past 12 months we worried whether our food would run out before we got money to buy more. Never True 11/21/2022 Within the past 12 months th e food we bought just didn't last and we didn't have money to get more. Never True 11/21/2022 Purpose - Life Answer Date Recorded I have a purpose and direction in my life. Somew hat Agree 12/26/2022 Sex and Gender Information Value Date Recorded Sex Assigned at Not on file Legal Sex Male 11:24 AM EDT Gender Identity Not on file Sexual Orientation Not on file documented as of this encounter Plan of Treatment Not on file documented as of this encounter Visit Diagnoses Not on filedocumented in this encounter Additional Health Concerns Infection Onset Date Last Indicated Resolved Time COVID-19 Rule-Out 08/26/2023 08/26/2023 08/27/2023 12:44 AM EDT Enteric Rule-Out 10/27/2024 10/27/2024 10/27/2024 2:27 PM EDT C. Difficile 10/27/2024 10/27/2024 Assessment Noted Time PHQ-9 Depression Total Score: 0 12/27/19 23 1:44 PM EDT documented as of this encounter Care Teams Paste Mixer Liquid Relationship Specialty Start Date End Date Estrella Medina, MAINTENANCE MECHANIC ELEVATORS-FITTING ROOM ATTENDANT [address] [place] [address] PCP - General Nurse Practitioner 05/19/24 documented as of this encounter
--- OUTSIDE RECORDS SUMMARY | 2024-11-03 16:41 | XMS_ITS | Encounter Summary ---
Author Organization [facility] Address [address] [facility] [place] [address] Care Team Providers Care Direct Care Counselor Name Role Phone Shaikh SHAUNA Gray Primary Care Provider [phone] Shaikh SHAUNA Gray Primary Care Provider [phone] Joaquin Leonard MD Unavailable Estrella Medina SET ILLUSTRATOR Unavailable [phone] Joaquin Leonard MD Primary Care Provider Elizabeth Hong LPN Unavailable Encounter Details Date Type Department Care Team (Late st Contact Info) Description 05/01/2023 Orders Only [facility] [address] [place] [address] Elisabeth Campos DE [address] [place] [address] Social History Tobacco Use Types Packs/Day Years Used Date Smoking Tobacco: Never Assessed Sex and Gender Information Value Date Recorded Sex Assigned at Not on file Legal Sex Male 7:26 PM EDT Gender Identity Not on file Sexual Orientation Not on file documented as of this encounter Plan of Treatment Not on file documented as of this encounter Visit Diagnoses Not on filedocumented in this encounter Care Teams Direct Care Counselor Relationship Specialty Start Date End Date Shaikh Gray MD PCP - General Internal Medicine 7/13/23 4/22/24 Shaikh Gray MD [address] [phone] PCP - General Internal Medicine 09/10/23 12/22/23 Joaquin Leonard MD [address] [place] [address] PCP - [employer] 08/19/23 Joaquin Leonard MD [address] [place] [phone] PCP - General Family Medicine 01/30/24 Estrella Medina NP [address] [place] [phone] Nurse Practitioner Family Medicine 12/23/23 Elizabeth Hong LPN [address] [place] [address] Licensed Practical Nurse Family Medicine 02/03/2402/02 documented as of this encounter
--- OUTSIDE RECORDS SUMMARY | 2024-11-03 16:41 | XMS_ITS | Encounter Summary ---
Author Organization [employer] Address [id number] [address] [place] [address] Care Team Providers Care Lawyer Criminal Name Role Phone Estrella Medina MIDWIFE-STOPER Primary Care Pr ovider Encounter Details Date Type Department Care Team (Late Contact Info) Description 01/31/2024 Telephone [facility] [address] [place] [phone] Neha Vega CNA Social History Tobacco Use Types Packs/Day Years Used Date Smoking Tobacco: Never Smokeless Tobacco: Never Alcohol Use Standard Drinks/Week Comments Not Currently 28 (1 standard drink = 0.6 oz pu re alcohol) not since december 2022 [facility] Utilities Answer Date Recorded In the past 12 months has [employer], gas, oil, or water company threatened to shut off services in your home? No 01/07/2024 Social Connection and Isolat ion Panel [NHANES] Answer Date Recorded In a typical week, how many times do you talk on the phone with family, friends, or neighbors? More than three times a week 12/26/2022 How often do you get togethe r with friends or relatives? More than three times a week 12/26/2022 How often do you attend chur ch or quaker services? Never 12/26/2022 Do you belong to any clubs o r organizations such as advent groups, unions, fraternal or athletic groups, or [...] Answer Date Recorded Total Score 0 12/26/2022 [facility] - Occupational Stress [...] medical appointments or from getting medications? No 12/19 In the past 12 months, has l ack of transportation kept you from meetings, work, or from getting things needed for daily living? No 01/07/2024 Housing Instability Answer Date Recorde d Are you worried or concerned that in the next two months you may not have stable housing that you own, rent or stay in as a part of a household? No 01/07/2024 Childcare Answer Date Recorded Do problems getting child ca re make it difficult for you to work or study? No 12/26/2022 Employment Answer Date Recorded Do you need help finding a [employer] career center and/or a training program? No 12/26/2022 Hunger Screening Answer Date Recorded Within the past 12 months we worried whether our food would run out before we got money to buy more. Never True 01/07/2024 Within the past 12 months th e food we bought just didn't last and we didn't have money to get more. Never True 01/07/2024 Purpose - Life Answer Date Recorded I [...] documented as of this encounter Care Teams Lawyer Criminal Relationship Specialty Start Date End Date Estrella Medina, MIDWIFE-STOPER [address] [place] [address] PCP - General Nurse Practitioner 05/19/24 documented as of this encounter
--- OUTSIDE RECORDS SUMMARY | 2024-11-03 16:41 | XMS_ITS | Encounter Summary ---
Author Organization [employer] Address [id number] [address] [place] [address] Care Team Providers Care Superintendent Of Schools Name Role Phone Estrella Medina Neal GENERAL MAINTENANCE TECHNICIAN-TEXTILE CONVERTER Primary Care Pr ovider Reason for Visit * Reason Comments Med Refill Encounter Details Date Type Department Care Team ([facility] Contact Info) Description 09/21/2021 Refill [facility] [address] [place] [phone] Carlton Wilson, GENERAL MAINTENANCE TECHNICIAN-TEXTILE CONVERTER [address] [place], [place] [phone] Med Refill Social History Tobacco Use Types Packs/Day Years Used Date Smoking Tobacco: Never Smokeless Tobacco: Never Alcohol Use Standard Drinks/Week Comments Yes 0 (1 standard drink = 0.6 oz pur e alcohol) 3 times per week Childcare Answer Date Recorded Childcare Unknown 10/17/2018 [...] documented as of this encounter Care Teams Superintendent Of Schools Relationship Specialty Start Date End Date Estrella Medina, GENERAL MAINTENANCE TECHNICIAN-TEXTILE CONVERTER [address] [place] [address] PCP - General Nurse Practitioner 05/19/24 documented as of this encounter
--- OUTSIDE RECORDS SUMMARY | 2024-11-03 16:41 | XMS_ITS | Clinical Summary ---
Author Organization [facility] Address [address] [place] [address] Care Team Providers Care Cigarette Packing Machine Operator Name Role Phone Unavailable Primary Care Provider Unavailabl e Social History Tobacco Use Types Packs/Day Years Used Date Smoking Tobacco: Never Assessed Sex and Gender Information Value Date Recorded Sex Assigned at Not on file Legal Sex Male 1:40 PM EDT Gender Identity Not on file Sexual Orientation Not on file Plan of Treatment Not on file
--- OUTSIDE RECORDS SUMMARY | 2024-11-03 16:41 | XMS_ITS | Encounter Summary ---
Author Organization [facility] Address [address] [facility] [place] [address] Care Team Providers Care Director Software Quality Assurance Name Role Phone Shaikh SHAUNA Gray Primary Care Provider [phone] Shaikh SHAUNA Gray Primary Care Provider [phone] Joaquin Leonard MD Unavailable Estrella Medina NP Unavailable [phone] Joaquin Leonard MD Primary Care Provider [phone] Elizabeth Hong LPN Unavailable Reason for Visit * Reason Comments Med Refill Encounter Details Date Type Department Care Team ([facility] Contact Info) Description 07/04/2023 Refill [facility] [address] [facility] [address] [place] [phone] Byron Cardona MD [address] [facility] [address] [place] [address] Social History Tobacco Use Types Packs/Day Years Used Date Smoking Tobacco: Never Smokeless Tobacco: Never Alcohol Use Standard Drinks/Week Comments Not Currently 0 (1 standard drink = 0.6 oz pur e alcohol) Sex and Gender Information Value Date Recorded Sex Assigned at Not on file Legal Sex Male 7:26 PM EDT Gender Identity Not on file Sexual Orientation Not on file documented as of this encounter Miscellaneous Notes * Telephone Encounter - Cristal Romo LPN - 07/04/2023 1:52 PM EST Not a patient of Dr. Cardona documented in this encounter Plan of Treatment Not on file documented as of this encounter Visit Diagnoses Not on filedocumented in this encounter Care Teams Director Software Quality Assurance Relationship Specialty Start Date End Date Shaikh Gray MD PCP - General Internal Medicine 11/29/22 09/09/23 Shaikh Gray MD [address] [place] [address] PCP - General Internal Medicine 09/10/23 12/22/23 Joaquin Leonard MD [address] [place] [address] PCP - [employer] 08/19/23 Joaquin Leonard MD [address] [place] [address] PCP - General Family Medicine 01/30/24 Estrella Medina NP [address] [place] [address] Nurse Practitioner Family Medicine 12/23/23 Elizabeth Hong LPN [address] [place] [address] Licensed Practical Nurse Family Medicine 02/03/2402/02 documented as of this encounter
--- OUTSIDE RECORDS SUMMARY | 2024-11-03 16:41 | XMS_ITS | Encounter Summary ---
Author Organization [facility] Address [address] [place] [address] Care Team Providers Care Bee Keeper Name Role Phone Shaikh SHAUNA Gray Primary Care Provider [phone] Joaquin Leonard MD Unavailable Estrella Medina PRODUCTION CONTROL EXPEDITER Unavailable [phone] Joaquin Leonard MD Primary Care Provider [phone] Elizabeth Hong LPN Unavailable Reason for Visit * Reason Comments Med Refill Encounter Details Date Type Department Care Team (Late st Contact Info) Description 10/22/2023 [facility] [address] [place] [address] Shaikh Gray MD [address] [place] [address] Stage 3a chronic kidney disease (CMS-HCC); Chronic heart failure with preserved ejection fraction (HCC) Social History Tobacco Use Types Packs/Day Years Used Date Smoking Tobacco: Never Passive Smoke Exposure: Never Smokeless Tobacco: Never Alcohol Use Standard Drinks/Week Comments Not Currently 0 (1 standard drink = 0.6 oz pur e alcohol) PHQ-2 Answer Date Recorded Patient Health Questionnaire-2 Score 0 10/15/2023 Sex and Gender Information Value Date Recorded Sex Assigned at Not on file Legal Sex Male 7:26 PM EDT Gender Identity Not on file Sexual Orientation Not on file documented as of this encounter Plan of Treatment Not on file documented as of this encounter Visit Diagnoses Diagnosis Stage 3a chronic kidney disease (CMS-HCC) Chronic heart failure with preserved ejection fraction (HCC) documented in this encounter Care Teams Bee Keeper Relationship Specialty Start Date End Date Shaikh Gray MD [address] [place] [address] PCP - General Internal Medicine 09/10/23 12/22/23 Joaquin Leonard MD [address] [place] [address] PCP - [employer] 08/19/23 Joaquin Leonard MD [address] [place] [address] PCP - General Family Medicine 01/30/24 Estrella Medina NP [address] [place] [address] Nurse Practitioner Family Medicine 12/23/23 Elizabeth Hong LPN [address] [place] [address] Licensed Practical Nurse Family Medicine 02/03/2402/02 documented as of this encounter
--- OUTSIDE RECORDS SUMMARY | 2024-11-03 16:41 | XMS_ITS | Encounter Summary ---
Author Organization [facility] Address [address] [facility] [[email or web address]] [place] [address] Care Team Providers Care After School Program Coordinator Name Role Phone Joaquin Leonard MD Unavailable Estrella Medina NP Unavailable [phone] Joaquin Leonard MD Primary Care Provider [phone] Encounter Details Date Type Department Care Team (Late st Contact Info) Description 02/26/2024 Orders Only [facility] [address] [place] [address] Sawyer Trejo MD [address] [place] [address] Social History Tobacco Use Types Packs/Day Years Used Date Smoking Tobacco: Never Passive Smoke Exposure: Never Smokeless Tobacco: Never Alcohol Use Standard Drinks/Week Comments Not Currently 0 (1 standard drink = 0.6 oz pur e alcohol) PHQ-2 Answer Date Recorded Patient Health Questionnaire-2 Score 0 01/30/2024 Sex and Gender Information Value Date Recorded Sex Assigned at Not on file Legal Sex Male 7:26 PM EDT Gender Identity Not on file Sexual Orientation Not on file documented as of this encounter Plan of Treatment Not on file documented as of this encounter Procedures Procedure Name Priority Date/Time Associated Diagnosis Comments SCANNED LABS Routine 02/26/2024 2:42 PM EDT documented in this encounter Results * SCANNED LABS (02/26/2024 2:42 PM EDT) us Sawyer Trejo MD LAB CHG PERFORMABLES Final Re sult documented in this encounter Visit Diagnoses Not on filedocumented in this encounter Care Teams After School Program Coordinator Relationship Specialty Start Date End Date Joaquin Leonard MD [address] [place] [address] PCP - [employer] 08/19/23 Joaquin Leonard MD [address] [place] [address] PCP - General Family Medicine 01/30/24 Estrella Medina NP [address] [place] [address] Nurse Practitioner Family Medicine 12/23/23 documented as of this encounter
--- OUTSIDE RECORDS SUMMARY | 2024-11-03 16:41 | XMS_ITS | Encounter Summary ---
Author Organization [facility] Address [address] [facility] [place] [address] Care Team Providers Care Customs Entry Clerk Name Role Phone Joaquin Leonard MD Unavailable Estrella Medina NP Unavailable [phone] Joaquin Leonard MD Primary Care Provider [phone] Encounter Details Date Type Department Care Team ([facility] Contact Info) Description 09/23/2024 Orders Only [facility] [address] [place] [address] Denia Aponte NP [address] [place] [address] Social History Tobacco Use Types Packs/Day Years [...] Procedure Name Priority Date/Time Associated Diagnosis Comments ECG 12-LEAD Routine 09/23/2024 2:56 PM EDT documented in this encounter Results * ECG 12 lead (09/23/2024 2:56 PM EDT) Denia Trianaporteranatoliy QUALITY ASSURANCE QA LAB TECHNICIAN ECG ORDERABLES Final Result documented in this encounter Visit Diagnoses Not on filedocumented in this encounter Care Teams Customs Entry Clerk Relationship Specialty Start Date End Date Joaquin Leonard MD [address] [place] [address] PCP - [employer] 08/19/23 Joaquin Leonard MD [address] [place] [address] PCP - General Family Medicine 01/30/24 Estrella Medina NP [address] [place] [address] Nurse Practitioner Family Medicine 12/23/23 documented as of this encounter
--- OUTSIDE RECORDS SUMMARY | 2024-11-03 16:41 | XMS_ITS | Encounter Summary ---
Author Organization [facility] Address [address] [place] [address] Care Team Providers Care Shift Production Supervisor Name Role Phone Shaikh SHAUNA Gray Primary Care Provider [phone] Shaikh SHAUNA Gray Primary Care Provider [phone] Joaquin Leonard MD Unavailable Estrella Medina CORRECTIONS SPECIALIST Unavailable [phone] Joaquin Leonard MD Primary Care Provider Elizabeth Hong LPN Unavailable Encounter Details Date Type Department Care Team (Late st Contact Info) Description 03/29/2023 Abstract [facility] [address] [place] [address] Shaikh Gray MD [address] [place] [address] Social History Tobacco Use Types Packs/Day Years [...] on filedocumented in this encounter Care Teams Shift Production Supervisor Relationship Specialty Start Date End Date Shaikh Gray MD PCP - General Internal Medicine 11/29/22 09/09/23 Shaikh Gray MD [address] [place] [address] PCP - General Internal Medicine 09/10/23 12/22/23 Joaquin Leonard MD [address] [place] [address] PCP - [employer] 08/19/23 Joaquin Leonard MD [address] [place] [address] PCP - General Family Medicine 01/30/24 Estrella Medina NP [address] [place] [address] Nurse Practitioner Family Medicine 12/23/23 Elizabeth Hong LPN [address] [place] [address] Licensed Practical Nurse Family Medicine 02/03/2402/02 documented as of this encounter
--- OUTSIDE RECORDS SUMMARY | 2024-11-03 16:41 | XMS_ITS | Encounter Summary ---
Author Organization [facility] Address [address] [place] [address] Care Team Providers Care Air Carrier Maintenance Inspector Name Role Phone Joaquin Leonard MD Unavailable Estrella Medina NP Unavailable [phone] Joaquin Leonard MD Primary Care Provider [phone] Encounter Details Date Type Department Care Team (Late st Contact Info) Description 08/03/2024 Orders Only [facility] [address] [place] [address] Denia Aponte NP [address] [place] [address] Social History Tobacco Use Types Packs/Day Years [...] Procedure Name Priority Date/Time Associated Diagnosis Comments XR KNEE 3 VIEWS RIGHT Routine 08/03/2024 10:13 AM EDT documented in this encounter Results * XR knee 3 views right (08/03/2024 10:13 AM EDT) Anatomical Region Laterality Modality Lower Extremities, Knee Right Radiogra phic Imaging us Denia Aponte GAS CHARGER IMG XR PROCEDURES Final Result documented in this encounter Visit Diagnoses Not on filedocumented in this encounter Care Teams Air Carrier Maintenance Inspector Relationship Specialty Start Date End Date Joaquin Leonard MD [address] [place] [address] PCP - [employer] 08/19/23 Joaquin Leonard MD [address] [place] [address] PCP - General Family Medicine 01/30/24 Estrella Medina NP [address] [place] [address] Nurse Practitioner Family Medicine 12/23/23 documented as of this encounter
--- OUTSIDE RECORDS SUMMARY | 2024-11-03 16:41 | XMS_ITS | Encounter Summary ---
Author Organization [facility] Address [address] [place] [address] Care Team Providers Care Lawyer Criminal Name Role Phone Shaikh SHAUNA Gray Primary Care Provider [phone] Shaikh SHAUNA Gray Primary Care Provider [phone] Joaquin Leonard MD Unavailable Estrella Medina NP Unavailable [phone] Joaquin Leonard MD Primary Care Provider [phone] Elizabeth Hong LPN Unavailable Reason for Visit * Reason Comments Med Refill Encounter Details Date Type Department Care Team ([facility] Contact Info) Description 07/04/2023 Refill [facility] [address] [facility] [address] [place] [address] Byron Cadrona MD [address] [facility] [address] [place] [address] Social History Tobacco Use Types [...] Encounter - Cristal Romo LPN - 07/04/2023 1:50 PM EST Not a patient of Dr. Cardona documented in this encounter Plan of Treatment Not on file documented as of this encounter Visit Diagnoses Not on filedocumented in this encounter Care Teams Lawyer Criminal Relationship Specialty Start Date End Date Shaikh Gray MD PCP - General Internal Medicine 11/29/22 09/09/23 Shaikh Gray MD [address] [place] [address] PCP - General Internal Medicine 09/10/23 12/22/23 Joaquin Leonard MD [address] [place] [address] PCP - [employer] 08/19/23 Joaquin Leonard MD [address] [place] [address] PCP - General Family Medicine 01/30/24 Estrella Medina NP [address] [place] [address] Nurse Practitioner Family Medicine 12/23/23 Elizabeth Hong LPN [address] [place] [address] Licensed Practical Nurse Family Medicine 02/03/2402/02 documented as of this encounter
--- OUTSIDE RECORDS SUMMARY | 2024-11-03 16:41 | XMS_ITS | Patient Health Record ---
Author Organization [facility] Address [address] [place] [place], [place] [id number] Care Team Providers Care Graphic Pre Press Trades Worker Name Role Phone Estrella Calhoun Unavailable [phone] Sheree Calloway Unavailable [phone] Allergies No Known Allergies Reason For Referral No Information Medications Medication SIG (Take, Route, Fr equency, Duration) Notes Start Date End Date Status Carvedilol 25 MG 1 tablet with food O rally Twice a day Active Eliquis 5 MG as directed Orally Active Social History Sex Assigned At : Social History Observation Description Sex Assigned At Male Problems Problem Type SNOMED Code ICD Code Onset Dates Problem Status W/U Status Risk Notes Problem Hypokalemia (02318474) Hypokalemia (E87.6) Active confirmed Comment:K+ 2.7 Stop HCTZ increase lisinopril 40 MEQ potassium BID today, then 20 MEQ x2 days recheck K+ tomorrow in ER, Problem Essential hypertension (41833864) Essential (primary) hypertension (I10) 2006 Active confirmed Comment:Instr ucted to take all medications as prescribed. Obtain lab work, has 30 day refills at pharmacy for now Follow up in 2 weeks Patient verbalizes and agrees with plan of care. C/W current meds,Story:BP high today, has not taken any medication for the last few weeks loss of vision in left eye No other neurological deficits on exam,Descript ion:Essential hypertension Problem Hepatitis B (32217466) Hepatitis B (B19.10) Active confirmed Comment:Drink ing 3 12 oz beers daily Denies any signs of acute infection or pain Labs as ordered, follow up in 1 month, Problem Effusion of joint of hand (95527183) Swelling of joint, hand, right (M25.441) Active confirmed Comment:Fall per ER report in October NO fracture on film Possbile gout, check labs and treat with colchicine and NSAIDS No tylenol PVU f/u in 2 weeks, Problem Retinopathy (51157904) Retinopathy (H35.00) Active confirmed Problem Viral hepatitis type C (00918614) Hepatitis-C (B19.20) Active confirmed Problem Closed traumatic dislocation of elbow joint (8128208) Dislocation of elbow, left, closed (S53.105A) Active confirmed Comment:pt advised he needs to F/U with ortho, Problem 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, 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 Problem resolved confirmed Problem Hyperlipidemia (93762229) Hyperlipidemia NEC/NOS (272.4) (272.4) 2006 Problem resolved confirmed Problem Pain in limb (84263593) Extremity pain (M79.609) 2008 Problem resolved confirmed Description:P ain in limb Problem Chronic hepatitis C (763903433) Chronic hepatitis C (B18.2) 2006 Problem resolved confirmed Problem Brachial plexus disorder (2246947) Brachial plexus lesions (353.0) (353.0) 2006 Problem resolved confirmed Problem Mixed, or nondependent drug abuse, 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 Problem resolved confirmed Comment:polys ubstance abuse, Problem Exposure to sexually transmissible disorder (209615318) Exposure to venereal disease (V01.6) (V01.6) 2007 Problem resolved confirmed Problem Hepatitis B, viral, w/o hepatic coma (070.3) (070.3) 2006 Problem resolved confirmed Problem Gastroesophageal reflux disease (427340284) Reflux, esophageal (530.81) (530.81) 2006 Problem resolved confirmed Vital Signs Heart Rate 69 /min 04/22/2024 Blood pressure diastolic 97 mm Hg 04/22/2024 Height-cm 182.88 cm 04/22/2024 Weight-kg 111.13 kg 04/22/2024 Height 6'0 in 04/22/2024 Blood pressure systolic 162 mm Hg 04/22/2024 Weight 245 lbs 04/22/2024 BMI 33.22 kg/m2 04/22/2024 Encounters Encounter Location Date Provider Diagnosis [facility] [address] [place], [place] [id number] 04/22/2024 Estrella Calhoun Encounter for dent al examination and cleaning with abnormal findings Z01.21 Assessments Encounter Date Diagnosis (ICD Code) Assessment Notes Treatment Notes Treatment Clinical Notes Section Notes 04/22/2024 Encounter for dental examination and cleaning with abnormal findings (ICD-10 - Z01.21) Plan Of Treatment No Information Insurance Providers Payer Name Payer Address Payer Phone Subscriber Number Group Number Insured Name Patient Relationship to Insured Coverage Start Date Coverage End Date Lashawn [facility] [address] [place] [phone] [id number] [place] [employer] Self - patient is the insured 4 Medical (General) History Medical History History ICD Code Essential (primary) hypertyajaira gilliam, DESCRIPTION: Essential hypertension, ProblemStatus: Active, , Gout, ProblemStatus: Active, , MEDICAL: Gastroesophageal reflux disease , ProblemStatus: Active, , MEDICAL: Hepatitis B, ProblemStatus: Act tunde, , MEDICAL: Hepatitis C, ProblemStatus: Act tunde, , MEDICAL: Hypertension, COMMENTS: Not cj ing any BP meds Goes to ED for medication if he's feelin g bad, ProblemStatus: Active, , Surgical History Surgery Date(Month/Year) Heart Surgery, COMMENTS: 2 stents in 200 0, ProblemStatus: Active, SURGICAL: No previous surgery, ProblemSt atus: Inactive, 2013-03-19
--- OUTSIDE RECORDS SUMMARY | 2024-11-03 16:41 | XMS_ITS | Encounter Summary ---
Author Organization [facility] Address [address] [facility] [place] [address] Care Team Providers Care Mud Cleaner Operator Name Role Phone Joaquin Leonard MD Unavailable Estrella Medina NP Unavailable [phone] Joaquin Leonard MD Primary Care Provider [phone] Encounter Details Date Type Department Care Team (Late st Contact Info) Description 02/18/2024 Orders Only [facility] [address] [place] [address] Sawyer Trejo MD [address] [place] [address] Social History Tobacco Use Types Packs/Day Years [...] Date/Time Associated Diagnosis Comments SCANNED LABS Routine 02/18/2024 4:14 PM EDT documented in this encounter Results * SCANNED LABS (02/18/2024 4:14 PM EDT) us Sawyer Trejo MD LAB CHG PERFORMABLES Final Re sult documented in this encounter Visit Diagnoses Not on filedocumented in this encounter Care Teams Mud Cleaner Operator Relationship Specialty Start Date End Date Joaquin Leonard MD [address] [place] [address] PCP - [employer] 08/19/23 Joaquin Leonard MD [address] [place] [address] PCP - General Family Medicine 01/30/24 Estrella Medina NP [address] [place] [address] Nurse Practitioner Family Medicine 12/23/23 documented as of this encounter
--- OUTSIDE RECORDS SUMMARY | 2024-11-03 16:41 | XMS_ITS | Clinical Summary ---
Author Organization [facility]OL[facility] tem Address [id number] [address] [place] [address] Care Team Providers Care Nursing Resident Name Role Phone Estrella Medina INSTRUCTOR [employer] Primary Care Pr ovider Allergies No known active allergies Medications nitroglycerin (NITROSTAT) 0.[address] 1 tablet (0.4 mg total) under the tongue every 5 (five) minutes as needed for chest pain. Active omeprazole (PriLOSEC) 20 mg capsule Take 1 capsule (20 mg total) by mouth daily. 30 capsule 09/28/19 21 Active apixaban (ELIQUIS) 5 mg tablet Take 1 tablet (5 mg total) by mouth in the morning and 1 tablet (5 mg total) before bedtime. 180 tablet 3 11/17/19 22 Active bhbdnhfj-oep-cw rrous gluconate (CENTRUM) 9 mg iron/15 mL liquid Take 15 mL by mouth in the morning. 02/09/20 23 Active QUEtiapine (SEROquel) 25 mg tablet Take 0.5 tablets (12.5 mg total) by mouth nightly. 02/08/20 23 Active Additional Information Patient taking differently: 25 mgoral Nightly, Reported on 10/26/2024 hydrOXYzine (ATARAX) 25 mg tablet Take 1 tablet (25 mg total) by mouth every 6 (six) hours as needed. 09/23/19 24 Active spironolactone (ALDACTONE) 25 mg tabletIndicatio ns:Cardiomyopat hy, unspecified type (CMS-HCC),Conge stive heart failure, unspecified HF chronicity, unspecified heart failure type ([facility]) take 1 tablet by mouth every morning 30 tablet 11 02/25/20 24 Active dapagliflozin propanediol (FARXIGA) 10 mg tabletIndicatio ns:CKD (chronic kidney disease) stage 4, GFR 15-29 ml/min ([facility]) Take 1 tablet (10 mg total) by mouth in the morning. 90 tablet 3 04/01/20 24 Active sacubitriL-vals flor[place] (ENTRESTO) 97-103 mg tablet Take 1 tablet by mouth in the morning and 1 tablet before bedtime. 180 tablet 3 04/06/20 24 Active ezetimibe (ZETIA) 10 mg tablet Take 1 tablet (10 mg total) by mouth in the morning. Active isosorbide mononitrate (IMDUR) 30 mg 24 hr tablet Take 1 tablet (30 mg total) by mouth daily. Active clopidogreL (PLAVIX) 75 mg tablet Take 1 tablet (75 mg total) by mouth in the morning for 120 days. 30 tablet 3 10/29/19 Active vancomycin (VANCOCIN) 50 mg/mL oral solution Take 2.5 mL (125 mg total) by mouth every 6 (six) hours for 13 days. 130 mL 10/30/19 25 Active acidophilus-pec tin, citrus 25 million cell -100 mg tablet Take 1 tablet by mouth in the morning and 1 tablet at noon and 1 tablet in the evening. Take with meals. 30 tablet 01/25/20 23 025 Discontinued cholecalciferol 2,000 units tablet Take 1 tablet (2,000 Units total) by mouth in the morning. 30 tablet 01/26/20 23 025 Discontinued atorvastatin (LIPITOR) 80 mg tablet Take 1 tablet (80 mg total) by mouth in the morning. 025 Discontinued metoprolol succinate XL (TOPROL XL) 50 mg 24 hr tablet Take 1 tablet (50 mg total) by mouth in the morning. 08/22/19 24 025 Discontinued magnesium oxide (MAGOX) 400 mg tablet Take 1 tablet (400 mg total) by mouth in the morning. 90 tablet 3 04/01/20 24 025 Discontinued bumetanide (BUMEX) 2 mg tabletIndicatio ns:edema Take 1 tablet (2 mg total) by mouth 2 (two) times a day before meals Indications: visible water retention. 025 Discontinued clopidogreL (PLAVIX) 75 mg tablet TAKE 1 TABLET BY MOUTH IN THE MORNING. 90 tablet 3 04/28/20 24 025 Discontinued levoFLOXacin (LEVAQUIN) 750 mg tablet Take 1 tablet (750 mg total) by mouth in the morning for 3 days. 3 tablet 10/30/19 25 025 metroNIDAZOLE (FLAGYL) 500 mg tablet Take 1 tablet (500 mg total) by mouth 3 (three) times a day for 3 days. 9 tablet 10/29/19 25 025 Active Problems Problem Noted Date Diagnosed Date Scrotal abscess 10/25/2024 ICD (implantable cardioverte r-defibrillator) in place- [employer] 04/03/2024 Bradycardia 01/08/2024 Right inguinal hernia 01/08/2024 Right leg swelling 01/08/2024 Frequent PVCs 01/08/2024 Hypokalemia 01/08/2024 Numbness and tingling of right arm 10/15/2023 Overview (01/08/2024): Last Assessment & Plan: Intermittent, ongoing for a month. Subjective weakness reported by patient. No recent injury. Pain/numbness moves upward to his shoulder. No shoulder pain/restriction in ROM No neck pain or restriction in ROM. Symptoms unchanged/unaffected by neck or shoulder movement. Normal B12 09/10 Order EMG/NCV. 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 difficile diarrhea 01/03/2023 UTI due to extended-spectrum beta lactamase (ESBL) producing Escherichia coli 12/28/2022 Toxic metabolic encephalopathy 12/28/2022 Sepsis 12/28/2022 Acute renal failure superimp osed on stage 3a chronic kidney disease 12/27/2022 Pyelonephritis 12/26/2022 Sepsis secondary to UTI ([facility]) 12/26/2022 Hypomagnesemia 12/26/2022 Alcohol withdrawal syndrome, with delirium 12/26 Alcohol abuse 11/13/2022 Chronic systolic (congestive) heart failure 10/19 Essential hypertension 05/02/2022 Stage 3a chronic kidney disease 05/02/2022 Bilateral recurrent inguinal hernias 12/08/2020 Obesity (BMI 30.0-34.9) 04/11/2020 Polysubstance abuse 03/31/2020 PAF (paroxysmal atrial fibrillation) 12/08/2019 Ischemic cardiomyopathy 11/07/2018 Shortness of breath 09/08/2018 Right upper quadrant abdominal pain 02/11/2018 Abnormal findings on diagnos tic imaging of heart and coronary circulation 07/20/2016 History of gross hematuria 04/03/2016 Anterior urethral stricture 04/03/2016 Alcoholism 05/27/2015 Overview (01/08/2024): Long standing history Actively drinking Chronic gout of foot 05/27/2015 Chronic hepatitis C without hepatic coma 016 S/P PTCA (percutaneous transluminal coronary ang ioplasty) 05/27/2015 Disorder involving thrombocytopenia 02/15/2015 Overview (01/08/2024): Unclear reason for thrombocytopenia Baseline plt around 90-130k Unclear reason for thrombocytopenia Baseline plt around 90-130k Resolved Problems Problem Noted Date Diagnosed Date Resolved Date Cardiac enzymes elevated 01/07/2024 Acute on chronic congestive heart failure, unspecified heart failure type 08/29/2023 Acute on chronic systolic co ngestive heart failure 08/26/2023 04/06/2024 HFrEF (heart failure with re duced ejection fraction) 05/30/2023 04/06/2024 Overview (01/08/2024): Last Assessment & Plan: Patient has HFrEF and currentlyn on appropriate GDMT. Reiterated to the patient that he needs to follow up with cardiology. Acute on chronic HFrEF (hear t failure with reduced ejection fraction) 01/27/2023 04/06/2024 Sepsis due to urinary tract infection 01/09/2023 02/04/2023 ACS (acute coronary syndrome) 11/12/2022 12/26/2022 Electrolyte abnormality 05/02/2022 08/0 01/2023 Acute on chronic combined sy stolic and diastolic heart failure 05/01/2022 2022 Abnormal nuclear stress test 10/13/2021 2022 Chest pain 10/11/2021 05/22/2022 Hypertensive urgency 10/10/2021 023 Chest pain 03/30/2020 05/22/2022 Chronic combined systolic an d diastolic heart failure 11/07/2018 05/22/2022 Hypertensive heart disease w ith chronic combined systolic and diastolic congestive heart failure 11/07/2018 2022 BMI 40.0-44.9, adult 10/31/2018 024 Unstable angina 09/26/2018 2022 Overview (09/26/2018): Added automatically from request for surgery [id number] ASCVD (arteriosclerotic card iovascular disease) 04/09/2018 04/06/2024 Elevated troponin 02/12/2018 12/26/2022 Epigastric pain 02/12/2018 04/09/2018 Overview (02/13/2018): Added automatically from request for surgery [id number] Chest pain 02/06/2018 04/09/2018 Renal insufficiency 04/03/2016 12/27/19 23 Cardiomyopathy 02/07/2015 04/06/2024 Encounters Date Type Department Care Team Description 10/29/2024 Refill [facility] [address] [place] [phone] Sawyer Powell MD Med Change Request 10/29/2024 Refill [facility] [address] [place] [phone] Sawyer Powell MD Med Change Request 10/29/2024 Refill [facility] [address] [place] [phone] Sawyer Powell MD Med Change Request 10/27/2024 Telephone [facility] [address] [place] [phone] Alison Schuster CMA 10/26/2024 Telephone [facility] [address] [place] [phone] Jaren Silveira MD 10/25/2024 7:40 PM EDT - 10/28/2024 8:04 PM EDT Hospital Encounter [facility] - [facility] [address] [place] [address] Jaren Castro DO Fakhar, Faiza, MD Kayyali, Ammar I, MD Scrotal abscess (Primary Dx) Discharge Disposition: [facility] Facility-Medicare Cert 10/25/2024 1:25 PM EDT - 10/25/2024 6:59 PM EDT Emergency [facility] - Emergency [address] [place] [phone] William Bowles MD Scrotal abscess (Primary Dx); Epididymitis Discharge Disposition: [facility] 10/25/2024 [facility]phone [facility] [address] [place] [phone] Chio Parsons, RN scrotal abcess 10/25/2024 Travel 10/14/2024 Orders Only [facility] [address] [place], [place] [address] [address] External, Scanning Provider 09/23/2024 Orders Only [facility] [address] [place] [phone] External, Scanning Provider 09/02/2024 Telephone [facility] [address] [place] [address] Mariann Traore CMA 08/14/2024 Telephone [facility] - Cardiac Rehab [address] [place] [address] Anastacia Novoa RN from Last 3 Months Immunizations Immunization Administration Dates Next Due Influenza, Im Trivalent Preservative 08/14/2011 Pneumococcal Polysaccharide 12/31/2018, 2 Tdap 08/02/2024,02/11/2019,06/14/2017 Family History Medical History Relation Name Comments Hyperlipidemia Brother Hypertension Brother Colon cancer Father Cancer Mother Kidney disease Sister Anesthesia problems Neg Hx Relation Name Status Comments Brother Father Mother (Age 57) Sister Social History Tobacco Use Types Packs/Day Years Used Date Smoking Tobacco: Never Smokeless Tobacco: Never Tobacco Cessation:Counseling Given: Not Answered Alcohol Use Standard Drinks/Week Comments Yes 28 (1 standard drink = 0.6 oz pu re alcohol) every other day Dexcomities Answer Date Recorded In the past 12 months has e [employer], gas, oil, or water [employer] threatened to shut off services in your [...] often do you attend chur ch or religion services? Never 12/26/2022 Do you belong to any clubs o r organizations such as latter-day groups, unions, fraternal or athletic groups, or [...] Answer Date Recorded Total Score 0 10/26/2024 [facility] - Occupational Stress [...] Recorded Do you need help finding a [facility] and/or a training program? No [...] on file Sexual Orientation Not on file Last Filed Vital Signs Vital Sign Reading [...] Mass Index 34.5 10/26/2024 1:00 AM EDT Plan of Treatment Health Maintenance Due Date Last Done Comments Adult BMI Follow Up Plan 1977 Zoster (Shingles) Vaccine (1 of 2) 2009 Fall Risk Screening 2024 Influenza Vaccine 01/18/2025 08/14/2011 Adult BMI Screening 10/26/2025 10/26/2024 Depression Screening 10/26/2025 10/26/2024 Tobacco Screening 10/26/2025 10/26/2024 DTaP,Tdap and Td Vaccines (4 - Td or Tdap) 08/02/2034 08/02/2024, 02/11/2019, 06/14/2017 Goals Goal Patient Goal Type Associated Problems Recent Progress Patient-Stated? Author home General Yes Anastacia Bartlett, RN Note: Evaluation of progress towards goal: Patient stated home with home care or possible SNF depending on discharge needs. Medical Devices Implanted Type Area Medical Affairs Leader Device Identifier Shelf Expiration Date Model / Serial / Lot Lead Pcng 62cm 8.6fr Rv Sq Scr S Trplr 1 Coil Actfx Df-4 - [id number] - [id number] Implanted:Qty: 1 on 03/19/2024 by Socorro Ruiz MD at [facility] Implant Lead Left: Chest [employer] [id number] 09/23/2025 [id number] / [id number] / Lead Pcng 52cm 6.2fr 2mm Atr Vntrc Cp Nv Bp Scr In Impl - [id number] - [id number] Implanted:Qty: 1 on 03/19/2024 by Socorro Ruiz MD at [facility] Implant Lead Left: Chest [employer] [id number] 10/09/2025 [id number] / [id number] / Mesh 15x9cm Parietex Progrip Slf Fx Srg - Sna - [id number] Implanted:Qty: 1 on 01/19/2021 by Gunner Weldon MD at [facility] Mesh Left: Inguinal [employer] [facility] 05/19/2025 [id number] / [id number] / [id number] Mesh 15x9cm Parietex Progrip Slf Fx Srg - Sna - [id number] Implanted:Qty: 1 on 01/19/2021 by Gunner Weldon MD at [facility] Mesh Right: Inguinal [employer] [facility] 07/17/2025 [id number] / NA / [id number] Defibrillator Crd Cblt Xt Impl Cardvrt - [id number] - [id number] Implanted:Qty: 1 on 03/19/2024 by Socorro Ruiz MD at [facility] Other Implant Left: Chest [employer] [id number] 08/14/2025 [id number] / [id number] / Procedures Procedure Name Priority Date/Time Associated Diagnosis Comments PROTIME & INR Routine 10/28/2024 5:12 AM EDT MAGNESIUM Routine 10/28/2024 5:12 AM EDT COMPREHENSIVE METABOLIC PANEL Routine 10/28/2024 5:12 AM EDT CBC WITH AUTO DIFFERENTIAL Routine 10/28/2024 5:12 AM EDT PHOSPHORUS Routine 10/28/2024 1:45 AM EDT MAGNESIUM Add-On 10/27/2024 6:19 PM EDT POTASSIUM Routine 10/27/2024 6:19 PM EDT PHOSPHORUS Routine 10/27/2024 6:19 PM EDT C DIFFICILE BY PCR Routine 10/27/2024 11 :20 AM EDT PROTIME & INR Routine 10/27/2024 6:37 AM EDT PHOSPHORUS Routine 10/27/2024 6:36 AM EDT MAGNESIUM Routine 10/27/2024 6:36 AM EDT COMPREHENSIVE METABOLIC PANEL Routine 10/27/2024 6:36 AM EDT CBC WITH AUTO DIFFERENTIAL Routine 10/27/2024 6:36 AM EDT MAGNESIUM Routine 10/26/2024 9:59 PM EDT BEDSIDE GLUCOSE Routine 10/26/2024 5:43 PM EDT BEDSIDE GLUCOSE Routine 10/26/2024 11:24 AM EDT BEDSIDE GLUCOSE Routine 10/26/2024 9:13 AM EDT BEDSIDE GLUCOSE Routine 10/26/2024 8:37 AM EDT MAGNESIUM Add-On 10/26/2024 8:30 AM EDT BILIRUBIN, DIRECT Add-On 10/26/2024 8:3 0 AM EDT HAPTOGLOBIN Routine 10/26/2024 8:30 AM EDT LDH Add-On 10/26/2024 8:30 AM EDT PROTIME & INR Routine 10/26/2024 7:09 AM EDT PHOSPHORUS Routine 10/26/2024 7:09 AM EDT MAGNESIUM Routine 10/26/2024 7:09 AM EDT COMPREHENSIVE METABOLIC PANEL Routine 10/26/2024 7:09 AM EDT CBC WITH AUTO DIFFERENTIAL Routine 10/26/2024 7:09 AM EDT SUPERFICIAL WOUND CULTURE STAT 10/25/2024 4:23 PM EDT PM ED INCISION AND DRAINAGE Routine 10/25/2024 4:22 PM EDT POCT NURSING URINE MACROSCOPIC UA Routine 10/25/2024 3:44 PM EDT URINALYSIS STAT 10/25/2024 3:38 PM EDT US SCROTUM WITH DUPLEX STAT 2:50 PM EDT EXTRA TUBES BLUE TOP Routine 10/25/2024 1:47 PM EDT THYROID PROFILE INCLUDES TSH FT4 Add-On 10/25/2024 1:47 PM EDT HEMOGLOBIN A1C Add-On 10/25/2024 1:47 PM EDT EXTRA TUBES Routine 10/25/2024 1:47 PM EDT LACTATE W/ REFLEX Routine 10/25/2024 1:4 7 PM EDT BASIC METABOLIC PANEL STAT 10/25/2024 1:47 PM EDT CBC WITH AUTO DIFFERENTIAL STAT 10/25/2024 1:47 PM EDT CO INTERROGATION EVAL REMOTE </90 D 1/2/ELECTRICAL LOGGING ENGINEER LD DFB Routine 09/17/2024 2:37 AM EDT ECG 12-LEAD Routine 08/05/2024 3:36 PM EDT ECG 12-LEAD Routine 08/03/2024 3:35 PM EDT ECG 12-LEAD Routine 08/03/2024 2:27 PM EDT from Last 3 Months Results * (ABNORMAL) CBC auto differential (10/28/2024 5:12 AM EDT) Only the most recent of4 resultswithin the time period is included. WBC 5.4 4 - 11 x10E9/L 10/28/2024 6:06 AM EDT [facility] RBC Count 3.81(L) 4.1 - 5.7 X10E12/L 10/28/2024 6:06 AM EDT [facility] Hemoglobin 12.1(L) 13 - 17 g/dL 10/28/2024 6:06 AM EDT [facility] Hematocrit 36.0(L) 39 - 50 % 10/28/2024 6:06 AM EDT [facility] MCV 95 80 - 100 fL 10/28/2024 6:06 AM EDT [facility] MCH 31.8 27 - 34 pg 10/28/2024 6:06 AM EDT [facility] MCHC 33.7 32 - 36 g/dL 10/28/2024 6:06 AM EDT [facility] RDW 14.0 11.5 - 15 % 10/28/2024 6:06 AM EDT [facility] Platelet Count 109(L) 150 - 450 X10E9/L 10/28/2024 6:06 AM EDT [facility] MPV 9.2 7 - 12 fL 10/28/2024 6:06 AM EDT [facility] Neutrophils Relative 54.0 % 10/28/2024 6:06 AM EDT [facility] Lymphocytes Relative 28.5 % 10/28/2024 6:06 AM EDT [facility] Monocytes Relative 12.7 % 10/28/2024 6:06 AM EDT [facility] Eosinophils Relative 4.1 % 10/28/2024 6:06 AM EDT [facility] Basophils Relative 0.7 % 10/28/2024 6:06 AM EDT [facility] Neutrophils Absolute (A) 2.9 1.5 - 6.6 10*3/uL 10/28/2024 6:06 AM EDT [facility] Lymphocytes Absolute 1.5 1.0 - 3.5 10*3/uL 10/28/2024 6:06 AM EDT [facility] Monocytes Absolute 0.7 0.0 - 0.9 10*3/uL 10/28/2024 6:06 AM EDT [facility] Eosinophils Absolute 0.2 0.0 - 0.4 10*3/uL 10/28/2024 6:06 AM EDT [facility] Basophils Absolute 0.0 0.0 - 0.2 10*3/uL 10/28/2024 6:06 AM EDT [facility] Differential Type AUTOMATED DIFFERENTIAL 10/28/2024 6:06 AM EDT [facility] Blood 10/28/2024 5:12 AM EDT 10/28/2024 5:12 AM EDT us Jacinto Goode MD LAB BLOOD ORDERABLES Fin al Result [facility] [address] [place] [address], [place] [phone] * (ABNORMAL) Protime & INR (10/28/2024 5:12 AM EDT) Only the most recent of3 resultswithin the time period is included. PROTIME 13.4(H) 9.8 - 13.2 sec 10/28/2024 6:39 AM EDT [facility] INR 1.2 0.9 - 1.2 10/28/2024 6:39 AM EDT [facility] Blood 10/28/2024 5:12 AM EDT 10/28/2024 5:12 AM EDT us Jacinto Goode MD LAB BLOOD ORDERABLES Fin al Result Performing Organization Address City/[facility]/ZIP Co de Phone Number [facility] [address] [place] [address], [place] [phone] * Magnesium (10/28/2024 5:12 AM EDT) Only the most recent of6 resultswithin the time period is included. Pathologist [facility] MAGNESIUM 1.8 1.8 - 2.6 mg/dL 10/28/2024 6:25 AM EDT [facility] Blood 10/28/2024 5:12 AM EDT 10/28/2024 5:12 AM EDT us Jacinto Goode MD LAB BLOOD ORDERABLES Fin al Result Performing Organization Address City/[facility]/ZIP Co de Phone Number [facility] [address] [place] [address], [place] [phone] * (ABNORMAL) Comprehensive metabolic panel (10/28/2024 5:12 AM EDT) Only the most recent of3 resultswithin the time period is included. Pathologist [facility] SODIUM 139 134 - 146 mmol/L 10/28/2024 6:25 AM EDT [facility] POTASSIUM 3.4(L) 3.5 - 5.0 mmol/L 10/28/2024 6:25 AM EDT [facility] CHLORIDE 108 98 - 109 mmol/L 10/28/2024 6:25 AM EDT [facility] CARBON DIOXIDE 23 22 - 32 mmol/L 10/28/2024 6:25 AM T [facility] ANION GAP 8 5 - 15 mmol/L 10/28/2024 6:25 AM [facility] BLOOD UREA NITROGEN 35(H) 5 - 27 mg/dL 10/28/2024 6:25 AM [facility] CREATININE 1.91(H) 0.60 - 1.30 mg/dL 10/28/2024 6:25 AM [facility] Comment:METHOD TRACEABLE TO IDME STANDARD GLUCOSE 88 65 - 99 mg/dL 10/28/2024 6:25 AM [facility] CALCIUM 8.0(L) 8.5 - 10.5 mg/dL 10/28/2024 6:25 AM [facility] TOTAL PROTEIN 6.3 6.0 - 8.0 g/dL 10/28/2024 6:25 AM [facility] ALBUMIN 2.5(L) 3.2 - 5.3 g/dL 10/28/2024 6:25 AM [facility] ALKALINE PHOSPHATASE 71 39 - 130 U/L 10/28/2024 6:25 AM [facility] AST 36 <=41 U/L 10/28/2024 6:25 AM [facility] ALT 17 <=40 U/L 10/28/2024 6:25 AM [facility] BILIRUBIN,TOTAL 1.1 0.3 - 1.2 mg/dL 10/28/2024 6:25 AM [facility] EGFR Non-Race Dependent 38(L) >=60 ml/min/1.7 3sq.m 10/28/2024 6:25 AM [facility] Comment: Reported eGFR is based on the CKD-EPI 2020 equation that does not use a race coefficient. Blood 10/28/2024 5:12 AM EDT 10/28/2024 5:12 AM EDT Jacinto Goode MD LAB BLOOD ORDERABLES Fin al Result Performing Organization Address City/[facility]/ZIP Co de Phone Number [facility] [address] [place] [address], * (ABNORMAL) Phosphorus (10/28/2024 1:45 AM EDT) Only the most recent of4 resultswithin the time period is included. PHOSPHORUS 1.8(L) 2.4 - 4.9 mg/dL 10/28/2024 2:46 AM EDT [facility] Blood Venous blood / Unknown 10/28/2024 1:45 AM EDT 10/28/2024 1:50 AM EDT Ishan Trevino MD LAB BLOOD ORDERABLES Final Re sult Performing Organization Address [facility]/ZIP Co de Phone Number [facility] [address] [place] [address], * Potassium (10/27/2024 6:19 PM EDT) [facility] POTASSIUM 3.8 3.5 - 5.0 mmol/L 10/27/2024 7:11 PM EDT [facility] Blood Venous blood / Unknown 10/27/2024 6:19 PM EDT 10/27/2024 6:19 PM EDT Jacinto Goode MD LAB BLOOD ORDERABLES Fin al Result Performing Organization Address City/[facility]/ZIP Co de Phone Number [facility] [address] [place] [address], * (ABNORMAL) C difficile by PCR (10/27/2024 11:20 AM EDT) TOXIGENIC C DIFF Positive(A) Negative 025 2:27 PM EDT [facility] 027 NAP1 Presumptive Negative Presumptive Negative 10/27/2024 2:27 PM EDT [facility] Comment:Assay methodology is nucleic acid amplification by real-time PCR for detection of C. difficile toxin gene sequences performed on [employer] Instrument System. Stool Feces / Unknown Collection / Unknown 10/27/2024 11:20 AM EDT 10/27/2024 12:18 PM EDT us João Garcia MD BODY FLUIDS AND STOOLS OR DERABLES Final Result [facility] [address] [place] [address], [place] [phone] * (ABNORMAL) Bedside Glucose *Place/Obtain serum glucose if >500 per glucometer. (10/26/2024 5:43 PM EDT) Only the most recent of4 resultswithin the time period is included. Bedside Glucose (POC) 110(H) 65 - 99 mg/dL 10/26/2024 5:44 PM EDT [facility] arterial/capilla ry 10/26/2024 5:43 PM EDT 10/26/2024 5:44 PM EDT us Jyotsna Joes MD POINT OF CARE TEST ORDERABLES Fi nal Result Performing Organization Address City/[facility]/ZIP Co de Phone Number [facility] [address] [place] [address], [place] * LDH (10/26/2024 8:30 AM EDT) LDH 184 100 - 235 U/L 10/26/2024 9:06 AM EDT [facility] Blood Venous blood / Unknown 10/26/2024 8:30 AM EDT 10/26/2024 8:35 AM EDT us João Garcia MD LAB BLOOD ORDERABLES Susana l Result [facility] [address] [place] [address], [place] [phone] * Haptoglobin (10/26/2024 8:30 AM EDT) HAPTOGLOBIN 130 32 - 228 mg/dL 10/26/2024 9:06 AM EDT [facility] Blood Venous blood / Unknown 10/26/2024 8:30 AM EDT 10/26/2024 8:35 AM EDT João Garcia MD LAB BLOOD ORDERABLES Susana l Result [facility] [address] [place] [address], * (ABNORMAL) Bilirubin, direct (10/26/2024 8:30 AM EDT) BILIRUBIN,DIRE CT 1.9(H) <=0.4 mg/dL 10/26/2024 9:06 AM EDT [facility] Blood Venous blood / Unknown 10/26/2024 8:30 AM EDT 10/26/2024 8:35 AM EDT João Garcia MD LAB BLOOD ORDERABLES Susana l Result [facility] [address] [place] [address], * Wound culture (10/25/2024 4:23 PM EDT) CULTURE RESULTS NO GROWTH 2 DAYS 10/27/2024 10:31 AM EDT [facility] GRAM STAIN >25 White Blood Cells/LPF 10/27/2024 10:31 AM EDT [facility] GRAM STAIN 0 Squamous Epithelial Cells/LPF 10/27/2024 10:31 AM EDT [facility] GRAM STAIN No organisms seen 10/27/2024 10:31 AM EDT [facility] Swab Structure of right testis / Unknown 10/25/2024 4:23 PM EDT 10/25/2024 4:43 PM EDT William Bowles MD MICROBIOLOGY - GENERAL ORDERABLE S Final Result [facility] [address] [place] [address], [place] [phone] * Incision and Drainage (10/25/2024 4:22 PM EDT) Narrative William Bowles MD - 10/25/2024 4:22 PM EDT William Bowles MD 11/03/2024 1:22 PM Incision and Drainage Date/Time: 10/25/2024 4:22 PM Performed by: William Bowles MD Authorized by: William Bowles MD Consent: Consent obtained: Verbal Consent given by: Patient Risks, benefits, and alternatives were discussed: yes Risks discussed: Bleeding and infection [place] protocol: Procedure explained and questions answered to [...] (10/25/2024 3:44 PM EDT) POC Urine Specific [employer] 1.025 1.010, 1.015, 1.020, 1.025 10/25/2024 3:39 PM EDT [facility] POC Urine Leukocyte Esterase Negative Negative 10/25/2024 3:39 PM EDT [facility] POC Urine Nitrite Negative Negative 10/25/2024 3:39 PM EDT [facility] POC Urine pH 5.5 5.0, 6.0, 6.5, 7.0, 7.5, 8.0, 8.5, 5.5 10/25/2024 3:39 PM EDT [facility] POC Urine Protein >=300 mg/dL(A) Negative 10/25/2024 3:39 PM EDT [facility] POC Urine Glucose Negative Negative 10/25/2024 3:39 PM EDT [facility] POC Urine Ketones Negative Negative 10/25/2024 3:39 PM EDT [facility] POC Urine Urobilinogen 1.0 E.U./dL 10/25/2024 3:39 PM EDT [facility] POC Urine Bilirubin Negative Negative 10/25/2024 3:39 PM EDT [facility] POC Urine Blood/HGB Large(A) Negative 10/25/2024 3:39 PM EDT [facility] Urine 10/25/2024 3:44 PM EDT 10/25/2024 3:39 PM EDT us William Bowles MD POINT OF CARE TEST ORDERABLES Fi nal Result [facility] [address] [place] [address] [place] [address], [place] * (ABNORMAL) Urinalysis (10/25/2024 3:38 PM EDT) COLOR Yellow Yellow, Colorless 10/25/2024 3:54 PM EDT [facility] TURBIDITY Clear Clear 10/25/2024 3:54 PM EDT [facility] SPECIFIC [place] 1.025 1.003 - 1.035 10/25/2024 3:54 PM EDT [facility] NITRITE Negative Negative 10/25/2024 3:54 PM EDT [facility] PH,URINE 6.0 5.0 - 8.5 10/25/2024 3:54 PM EDT [facility] LEUKOCYTE ESTERASE Negative Negative 10/25/2024 3:54 PM EDT [facility] PROTEIN 100 mg/dL(A) Negative 10/25/2024 3:54 PM EDT [facility] KETONES (URINE) Negative Negative 3:54 PM EDT [facility] UROBILINOGEN 1.0 eu/dL 0.2 eu/dL, 1.0 eu/dL 10/25/2024 3:54 PM EDT [facility] BILIRUBIN (URINE) Negative Negative 10/25/2024 3:54 PM EDT [facility] BLOOD/HGB Large(A) Negative 10/25/2024 3:54 PM EDT [facility] R.B.CELLS 2 0 - 5 10/25/2024 3:54 PM EDT [facility] SQUAMOUS EPITHELIUM 5 0 - 5 10/25/2024 3:54 PM EDT [facility] GLUCOSE (URINE) Negative Negative, 250 mg/dL 10/25/2024 3:54 PM EDT [facility] Urine Collection / Unknown 10/25/2024 3:38 PM EDT 10/25/2024 3:41 PM EDT us William Bowles MD URINE ORDERABLES Final Result Performing Organization Address City/State/RUST Co de Phone Number [facility] [address] [place] [address], [place] * Ultrasound scrotum for TORSION with [...] increased Doppler flow. Finding is most consistent jeanien abscess measurements are given above * Left scrotal wall thickening and induration with increased Doppler flowbut no definite fluid collection on the left side of the scrotum Finalized by Grzegorz Mullen MD on 10/25/2024 3:43 PM William Bowles MD G US ORDERABLES Final Result * Light Blue Top (10/25/2024 1:47 PM EDT) Extra Tube Auto Resulted 10/25/2024 3:01 PM EDT [facility] Blood Venous blood / Unknown Port / Unknown 10/25/2024 1:47 PM EDT 10/25/2024 1:50 PM EDT Willaim Bowles MD LAB BLOOD ORDERABLES Final Resul t Performing Organization Address City/[facility]/ZIP Co de Phone Number [address] [place] [address], [place] * Lactate w/ Reflex (10/25/2024 1:47 PM EDT) LACTATE W/REFLEX 1.6 0.4 - 2.0 mmol/L 10/25/2024 2:08 PM EDT [facility] Blood Venous blood / Unknown Port / Unknown 10/25/2024 1:47 PM EDT 10/25/2024 1:50 PM EDT Narrative [facility] - 10/25/2024 2:08 PM EDT Result did not trigger repeat Lactate, re-order if needed. William Bowles MD LAB BLOOD ORDERABLES Final Resul t Performing Organization Address City/[facility]/ZIP Co de Phone Number [address] [place] [address], [place] * Thyroid profile includes TSH FT4 (10/25/2024 1:47 PM EDT) FREE T4 0.97 0.61 - 1.60 ng/dL 10/25/2024 10:36 PM EDT [facility] TSH 1.07 0.49 - 4.67 uIU/mL 10/25/2024 10:36 PM EDT [facility] Blood Venous blood / Unknown Port / Unknown 10/25/2024 1:47 PM EDT 10/25/2024 1:50 PM EDT Jacinto Goode MD LAB BLOOD ORDERABLES Fin al Result Performing Organization Address [facility]/ZIP Co de Phone Number [facility] [address] [place] [place] [address], [place] * Hemoglobin A1c (10/25/2024 1:47 PM EDT) HEMOGLOBIN A1C 4.4 4.4 - 5.6 % 10/26/2024 5:45 AM EDT [facility] Comment: ADA Guidelines Result HgbA1c Normal : less than 5.7 % Prediabetes : 5.7 % to 6.4 % Diabetes : > 6.4 % Use with caution in patients with abnormal hemoglobin variants as the half-life of red blood cells and in vivo glycation rates are affected. EST. AVERAGE GLUCOSE 80 mg/dL 10/26/2024 5:45 AM EDT [facility] Blood Venous blood / Unknown Port / Unknown 10/25/2024 1:47 PM EDT 10/25/2024 1:50 PM EDT Jacinto Goode MD LAB BLOOD ORDERABLES Fin al Result Performing Organization Address City/[facility]/ZIP Co de Phone Number [facility] [address] [place] [address], [place] [phone] * (ABNORMAL) Basic Metabolic Panel (10/25/2024 1:47 PM EDT) SODIUM 136 134 - 146 mmol/L 10/25/2024 2:04 PM EDT [facility] POTASSIUM 3.8 3.5 - 5.0 mmol/L 10/25/2024 2:04 PM EDT [facility] CHLORIDE 115(H) 98 - 109 mmol/L 10/25/2024 2:04 PM EDT [facility] CARBON DIOXIDE 17(L) 22 - 32 mmol/L 10/25/2024 2:04 PM EDT [facility] ANION GAP 4(L) 5 - 15 mmol/L 10/25/2024 2:04 PM EDT [facility] BLOOD UREA NITROGEN 25 5 - 27 mg/dL 10/25/2024 2:04 PM EDT [facility] CREATININE 1.47(H) 0.70 - 1.20 mg/dL 10/25/2024 2:04 PM EDT [facility] Comment:METHOD TRACEABLE TO IDMS STANDARD GLUCOSE 91 65 - 99 mg/dL 10/25/2024 2:04 PM EDT [facility] CALCIUM 7.7(L) 8.5 - 10.5 mg/dL 10/25/2024 2:04 PM EDT [facility] EGFR Non-Race Dependent 53(L) >=60 ml/min/1.7 3sq.m 10/25/2024 2:04 PM EDT [facility] Comment: eGFR not reported due to non-numeric value for Creatinine. Reported eGFR is based on the CKD-EPI 2020 equation that does not use a race coefficient. Blood Venous blood / Unknown Port / Unknown 10/25/2024 1:47 PM EDT 10/25/2024 1:50 PM EDT us William Bowles MD LAB BLOOD ORDERABLES Final Resul t [facility] [address] [place] [address], * Remote Device Check (09/17/2024 2:37 AM EDT) Anatomical Region Laterality Modality Other 09/17/2024 2:37 AM EDT us Luis Enrique Concepcion MD HEALTH MAINTENANCE Final Result * ECG 12 lead (08/05/2024 3:36 PM EDT) Only the most recent of3 resultswithin the time period is included. us Scanning Provider External ECG ORDERABLES Final Result MANUALLY TRANSCRIBED RESULTS from Last 3 Months Additional Health Concerns Infection Onset Date Last Indicated C. Difficile 10/27/2024 10/27/2024 Insurance [place]ICAID [place] Member Subscriber Plan / Payer (Ef fective 2019-Present) Name:Carlos Coultersandrine Bowles Relation to Subscriber:Self Name:Ovidio Coulter Wilbur Payer ID:Not on file Group ID:Not on file Type:Not on file Address: [address] [place] [phone] [place] Advance Directives Documents on File Type Date Recorded Patient Manager Mutual Fund Expl anation DNR Physician Order 02/25/2023 12:27 PM DNR Physician Order 02/19/2023 5:46 AM Advance Directive 02/07/2023 12:28 PM DNR * Full Code (Latest Code Status on File) Date Activated Date Inactivated Comments 10/25/2024 8:29 PM 10/29/2024 12:47 AM * Full Code Date Activated Date Inactivated Comments 01/08/2024 4:56 AM 01/10/2024 6:55 PM * Full Code Date Activated Date Inactivated Comments 08/27/2023 2:14 AM 09/04/2023 3:52 PM * Full Code Date Activated Date Inactivated Comments 02/09/2023 4:38 AM 02/12/2023 7:18 PM * DNR Comfort Care Arrest (DNR-CCA) Sanders Date Activated Date Inactivated Comments 01/27/2023 7:51 PM 02/07/2023 3:30 PM Care Teams Nursing Resident Relationship Specialty Start Date End Date Estrella Medina, INSTRUCTOR BALLROOM DANCING-BRIDGE CONTRACTOR [address] [place] [address] PCP - General Nurse Practitioner 05/19/24
--- OUTSIDE RECORDS SUMMARY | 2024-11-03 16:41 | XMS_ITS | Encounter Summary ---
Author Organization [employer] Address [id number] [address] [place] [address] Care Team Providers Care Poultry Hatchery Manager Name Role Phone Estrella Medina SUGAR LABORATORY ASSISTANT-INDUSTRIAL STAFF NURSE Primary Care Pr ovider Encounter Details Date Type Department Care Team (Late Contact Info) Description 10/02/2023 Telephone [facility] [address] [phone] Hilary Barajas, CHRISTINA Social History Tobacco Use Types Packs/Day Years Used Date Smoking Tobacco: Never Smokeless Tobacco: Never Alcohol Use Standard Drinks/Week Comments Not Currently 28 (1 standard drink = 0.6 oz pu re alcohol) not since december 2022 [facility] Utilities Answer Date Recorded In the past 12 months has [employer] electric, gas, oil, or water company threatened to shut off services in your home? No 08/27/2023 Social Connection and Isolat ion Panel [NHANES] Answer Date Recorded In a typical week, how many times do you talk on the phone with family, friends, or neighbors? More than three times a week 12/26/2022 How often do you get togethe r with friends or relatives? More than three times a week 12/26/2022 How often do you attend chur ch or advent services? Never 12/26/2022 Do you belong to any clubs o r organizations such as religion groups, unions, fraternal or athletic groups, or [...] Answer Date Recorded Total Score 0 12/26/2022 [facility] - Occupational [...] medical appointments or from getting medications? No 01/2024 In the past 12 months, has l ack of transportation kept you from meetings, work, or from getting things needed for daily living? No 08/27/2023 Housing Instability Answer Date Recorde d Are you worried or concerned that in the next two months you may not have stable housing that you own, rent or stay in as a part of a household? No 08/27/2023 Childcare Answer Date Recorded Do problems getting child ca re make it difficult for you to work or study? No 12/26/2022 Employment Answer Date Recorded Do you need help finding a [facility] career center and/or a training program? No 12/26/2022 Hunger Screening Answer Date Recorded Within the past 12 months we worried whether our food would run out before we got money to buy more. Never True 10/02/2023 Within the past 12 months th e food we bought just didn't last and we didn't have money to get more. Never True 10/02/2023 Purpose - Life Answer Date Recorded I [...] documented as of this encounter Care Teams Poultry Hatchery Manager Relationship Specialty Start Date End Date Estrella Medina, SUGAR LABORATORY ASSISTANT-INDUSTRIAL STAFF NURSE [address] [place] [address] PCP - General Nurse Practitioner 05/19/24 documented as of this encounter
--- OUTSIDE RECORDS SUMMARY | 2024-11-03 16:41 | XMS_ITS | Encounter Summary ---
Author Organization [facility] Address [address] [place] [address] Care Team Providers Care Rounder And Backer Name Role Phone Joaquin Leonard MD Unavailable Estrella Medina NP Unavailable [phone] Joaquin Leonard MD Primary Care Provider [phone] Encounter Details Date Type Department Care Team (Late st Contact Info) Description 07/27/2024 Abstract [facility] [address] [place] [address] Joaquin Leonard MD [address] [place] [address] Social History Tobacco Use Types Packs/Day Years [...] on filedocumented in this encounter Care Teams Rounder And Backer Relationship Specialty Start Date End Date Joaquin Leonard MD [address] [place] [address] PCP - [employer] 08/19/23 Joaquin Leonard MD [address] [place] [phone] PCP - General Family Medicine 01/30/24 Estrella Medina NP [address] [place] [phone] Nurse Practitioner Family Medicine 12/23/23 documented as of this encounter
--- OUTSIDE RECORDS SUMMARY | 2024-11-03 16:41 | XMS_ITS | Encounter Summary ---
Author Organization [facility] Address [address] [place] [address] Care Team Providers Care Hat Marker Name Role Phone Joaquin Leonard MD Unavailable Estrella Medina NP Unavailable [phone] Joaquin Leonard MD Primary Care Provider [phone] Encounter Details Date Type Department Care Team (Late st Contact Info) Description 07/29/2024 [facility] [address] [place] [address] Joaquin Leonard MD [address] [place] [address] Social History Tobacco Use Types [...] on filedocumented in this encounter Care Teams Hat Marker Relationship Specialty Start Date End Date Joaquin Leonard MD [address] [place] [address] PCP - [employer] 08/19/23 Joaquin Leonard MD [address] [place] [phone] PCP - General Family Medicine 01/30/24 Estrella Medina NP [address] [place] [phone] Nurse Practitioner Family Medicine 12/23/23 documented as of this encounter
--- OUTSIDE RECORDS SUMMARY | 2024-11-03 16:41 | XMS_ITS | Clinical Summary ---
Author Organization [facility] Address [address] [place] [address] Care Team Providers Care Enterprise Systems Engineer Name Role Phone Unavailable Primary Care Provider Unavailabl e Allergies No known active allergies Medications allopurinol (ZYLOPRIM) 100 MG tablet Take 100 mg by mouth daily 1 Active clopidogrel (PLAVIX) 75 MG tablet Take 75 mg by mouth daily Active sacubitril-valsa rtan (ENTRESTO) 97-103 MG per tablet TAKE ONE (1) TABLET BY MOUTH TWICE DAILY 2 Active atorvastatin (LIPITOR) 80 MG tablet TAKE 1 TABLET BY MOUTH EVERY DAY *NEED LABS FOR FURTHER REFILLS* 2 Active spironolactone (ALDACTONE) 25 MG tablet Take 25 mg by mouth daily 2 Active apixaban (ELIQUIS) 5 MG TABS tablet Take 5 mg by mouth 2 times daily 2 Active bumetanide (BUMEX) 2 MG tablet Take 2 mg by mouth 2 times daily Active carvedilol (COREG) 12.5 MG tablet Take 12.5 mg by mouth 2 times daily 2 Active ezetimibe (ZETIA) 10 MG tablet Take 10 mg by mouth daily 2 Active isosorbide mononitrate (IMDUR) 30 MG extended release tablet Take 30 mg by mouth daily 2 Active nitroGLYCERIN (NITROSTAT) 0.[address] 0.4 mg under the tongue every 5 minutes as needed Active metOLazone (ZAROXOLYN) 5 MG tablet Take as directed prior to Bumex as needed for edema, maximum 3 days per days 3 Active omeprazole (PRILOSEC) 20 MG delayed release capsule Take 20 mg by mouth daily 1 Active potassium chloride (KLOR-CON M) 20 MEQ extended release tablet Take 20 mEq by mouth daily 3 Active amLODIPine (NORVASC) 2.5 MG tablet Take 2.5 mg by mouth daily Active aspirin 81 MG chewable tablet Take 1 tablet by mouth daily 30 tablet 2 3 Active Active Problems Problem Noted Date Diagnosed Date Thrombocytopenia 06/30/2022 Chest pain 06/28/2022 CHF (congestive heart failur e), NYHA class I, acute on chronic, combined 06/27/2022 Unstable angina 06/27/2022 Acute on chronic congestive heart failure 2022 Stage 3 chronic kidney disease 05/02/2022 Hypertensive emergency 04/17/2021 Obesity (BMI 30.0-34.9) 04/11/2020 Polysubstance abuse 03/31/2020 Paroxysmal atrial fibrillation 12/27/2018 Overview (06/27/2022): New pAF on this admission Heparin gtt for AC Consider cardioversion if remains in Afib and has been on Ac for 48 hours Chronic systolic heart failure 12/26/2018 Overview (06/27/2022): ICM EF 25% with G2DD No significant valvular abnormalities On spironolactone,ACEi, BB, and hydral/isdn at home RHC on admission showed RA 9, RV 42/7, PA 42/20, PCWP 22, CI (2.06 - thermo, 1.68 michelle) PA sat 60.9% Plan; - Consider Caruthers Quentin catheter placement and SGT Ischemic cardiomyopathy 11/07/2018 Chronic hepatitis C without hepatic coma 016 Primary hypertension 05/27/2015 Immunizations Immunization Administration Dates Next Due Influenza Virus Vaccine 08/14/2011,08/14/2011 Pneumococcal, PPSV23, PNEUMO VAX 23, (age 2y+), SC/IM, 0.5mL 12/31/2018,08/14/2011 TDaP, ADACEL (age 10y-64y), BOOSTRIX (age 10y+), IM, 0.5mL 02/11/2019,06/14/2017 Social History Tobacco Use Types Packs/Day Years Used Date Smoking Tobacco: Never Smokeless Tobacco: Never Tobacco Cessation:Counseling Given: Not Answered Alcohol Use Standard Drinks/Week Comments Yes 0 (1 standard drink = 0.6 oz pur e alcohol) Sex and Gender Information Value Date Recorded Sex Assigned at Not on file Legal Sex Male 8:51 PM EST Gender Identity Not on file Sexual Orientation Not on file Last Filed Vital Signs Vital Sign Reading Time Taken Comments Blood Pressure 134/93 06/30/2022 7:29 AM EST Pulse 66 06/30/2022 7:29 AM EST Temperature 36.7 C (98 F) 06/30/2022 7:29 AM EST Respiratory Rate 16 06/30/2022 7:29 AM EST Oxygen Saturation 98% 06/30/2022 7:29 AM EST Inhaled Oxygen Concentration - - Weight 107.7 kg (237 lb 8 oz) 06/25/2022 3:00 PM EST Height 182.9 cm (6') 06/25/2022 3:00 PM EST Body Mass Index 32.21 06/25/2022 3:00 PM EST Plan of Treatment Health Maintenance Due Date Last Done Comments Depression Screen 1971 HIV screen 1974 Hepatitis A vaccine (1 of 2 - Risk 2-dose series) 1978 Colonoscopy 2004 Colorectal Cancer Screen 2004 FIT/FOBT: Average risk 2004 Fecal-DNA (Cologuard): Average risk 2004 Sigmoidoscopy/CT colonography 2004 Shingles vaccine (1 of 2) 2009 Lipids 08/13/2012 08/14/2011 Hepatitis B vaccine (1 of 3 - Risk 3-dose series) 2019 Respiratory Syncytial Virus (RSV) or age 60 yrs+ (1 - Risk 60-74 years 1-dose series) 2019 Pneumococcal 50+ years Vaccine (2 of 2 - PCV) 01/01/2020 12/31/2018, 08/14/2011 COVID-19 Vaccine ( - 2023- season) 2024 GFR test (Diabetes, CKD 3-4, OR last GFR 15-59) 02/09/2024 02/08/2023, 01/25/2023, 06/30/2022, Additional history exists Flu vaccine (Season Ended) 2024 08/14/2011, DTaP/Tdap/Td vaccine (3 - Td or Tdap) 02/11/2029 02/11/2019, 06/14/2017 Pneumococcal 0-49 years Vaccine Discontinued 12/31/2018, 08/14/2011 Hib vaccine Aged Out No longer eligi ble based on patient's age to complete this topic Meningococcal (ACWY) vaccine Aged Out No longer eligible based on patient's age to complete this topic Meningococcal B vaccine Aged Out No l onger eligible based on patient's age to complete this topic Polio vaccine Aged Out No longer elig ible based on patient's age to complete this topic Procedures Procedure Name Priority Date/Time Associated Diagnosis Comments BASIC METABOLIC PANEL W/ REFLEX TO MG FOR LOW K Routine 06/30/2022 2:28 AM EST LIPID PANEL Routine 08/14/2011 2:04 AM EDT from Last 3 Months or Most Recently Relevant to Health Maintenance Results * (ABNORMAL) Lipid panel (08/14/2011 2:04 AM EDT) Cholesterol 221(H) <200 mg/dL [facility] Comment: Cholesterol Normals: <200 Desirable 200-239 Borderline high >fz=358 High HDL 55 >40 mg/dL [facility] Comment: HDL Normals: <40 Higher risk >or=60 Desirable LDL Cholesterol 138(H) <100 mg/dL [facility] Comment: LDL Normals: <100 Optimal 100-129 Near to above optimal 130-159 Borderline high 160-189 High >bx=744 Very high Direct (measured) LDL and calculated LDL are not interchangeable tests. Chol/HDL Ratio 4.0 <5.0 [facility] Comment: Triglycerides 138 <150 mg/dL [facility] Comment: Triglyceride Normals: <150 Normal 150-199 Borderline high >199 High [facility] [address] [place] [address] VLDL NOT REPORTED 1 - 36 mg/dL [facility] 08/14/2011 2:04 AM EDT 08/14/2011 2:09 AM EDT Sravani Larson MANGLE PRESS CATCHER - SEMICONDUCTOR WAFERS MARKER CHEMISTRY ORDERABLE S Final Result [facility] from Last 3 Months or Most Recently Relevant to Health Maintenance Advance Directives * Full Code (Latest Code Status on File) Date Activated Date Inactivated Comments 06/25/2022 2:55 PM 06/30/2022 3:45 PM
--- OUTSIDE RECORDS SUMMARY | 2024-11-03 16:41 | XMS_ITS | Encounter Summary ---
Author Organization [employer] Address [id number] [address] [place] [address] Care Team Providers Care Airport Representative Name Role Phone Estrella Medina CONSUMER LOAN MANAGER-ENVELOPE FOLDING MACHINE ADJUSTER Primary Care Pr ovider Reason for Visit * Reason Onset Date Comments Med Refill 04/12/2020 Encounter Details Date Type Department Care Team ([facility] Contact Info) Description 04/12/2020 Refill [facility] [address] [place] [address] Kaitlynn Boss RN Med Refill Social History Tobacco Use Types Packs/Day Years Used Date Smoking Tobacco: Never Smokeless Tobacco: Never Alcohol Use Standard Drinks/Week Comments Yes 0 (1 standard drink = 0.6 oz pur e alcohol) DRINKS DAILY Childcare Answer Date Recorded Childcare Unknown 10/17/2018 Employment Answer Date Recorded Employment Unknown 10/17/2018 Sex and Gender Information Value Date Recorded Sex Assigned at Not on file Legal Sex Male 11:24 AM EDT Gender Identity Not on file Sexual Orientation Not on file COVID-19 Exposure Response Date Recorded In the last month, have you been in contact with someone who was confirmed or suspected to have Coronavirus / COVID-19? No / Unsure 04/11/2020 2:38 PM EST documented as of this encounter Plan of [...] documented as of this encounter Care Teams Airport Representative Relationship Specialty Start Date End Date Estrella Medina, CONSUMER LOAN MANAGER-ENVELOPE FOLDING MACHINE ADJUSTER [address] [place] [address] PCP - General Nurse Practitioner 05/19/24 documented as of this encounter
--- OUTSIDE RECORDS SUMMARY | 2024-11-03 16:41 | XMS_ITS | Encounter Summary ---
Author Organization [facility] Address [address] [facility] [place] [address] Care Team Providers Care Solid Propellant Processor Name Role Phone Shaikh SHAUNA Gray Primary Care Provider [phone] Shaikh SHAUNA Gray Primary Care Provider [phone] Joaquin Leonard MD Unavailable Estrella Medina NP Unavailable [phone] Joaquin Leonard MD Primary Care Provider [phone] Elizabeth Hong LPN Unavailable Reason for Visit * Reason Comments Med Refill Encounter Details Date Type Department Care Team ([facility] Contact Info) Description 07/04/2023 Refill [facility] [address] [facility] [address] [place] [phone] Byron Cardona MD [address] [facility] [address] [place], [place] [id number] Thrombocytopenia, unspecified; Stage 3a chronic kidney disease (CMS-HCC); Chronic heart failure with preserved ejection fraction (HCC); Chronic gout of multiple sites, unspecified cause Social History Tobacco Use Types Packs/Day Years [...] Encounter - Cristal Romo LPN - 07/04/2023 1:51 PM EST Not a patient of Dr. Hwang documented in this encounter Plan of Treatment Not on file documented as of this encounter Visit Diagnoses Diagnosis Thrombocytopenia, unspecified Stage 3a chronic kidney disease (CMS-HCC) Chronic heart failure with preserved ejection fraction (HCC) Chronic gout of multiple sites, unspecified cause documented in this encounter Care Teams Solid Propellant Processor Relationship Specialty Start Date End Date Shaikh Gray MD PCP - General Internal Medicine 11/29/22 09/09/23 Shaikh Gray MD [address] [place] [address] PCP - General Internal Medicine 09/10/23 12/22/23 Joaquin Leonard MD [address] [place] [address] PCP - [employer] 08/19/23 Joaquin Leonard MD [address] [place] [address] PCP - General Family Medicine 01/30/24 Estrella Medina NP [address] [place] [address] Nurse Practitioner Family Medicine 12/23/23 Elizabeth Hong LPN [address] [place] [address] Licensed Practical Nurse Family Medicine 02/03/2402/02 documented as of this encounter
--- OUTSIDE RECORDS SUMMARY | 2024-11-03 16:41 | XMS_ITS | Clinical Summary ---
Author Organization [facility] Address [address] [place] [address] Care Team Providers Care Marking Clerk Name Role Phone Zora, Delma Billings CNP Primary Care Provider [phone] Levon Arrington DO Unavailable [phone] Allergies No known active allergies Medications KLOR-CON M20 20 mEq tablet Take 1 tablet by mouth once daily. 9 Active doxepin (ZONALON) 5 % cream Apply 1 application to affected area once daily as needed for Itching/Rash. 9 Active clopidogrel (PLAVIX) 75 mg tablet Take 1 tablet by mouth once daily. 90 tablet 3 9 Active atorvastatin (LIPITOR) 80 mg tablet Take 1 tablet by mouth once daily. 90 tablet 3 9 Active bumetanide (BUMEX) 1 mg tablet Take 1 tablet by mouth once daily. And an extra 1 mg as needed daily for weight gain/ swelling 120 tablet 5 9 Active sacubitril-vals [place] (ENTRESTO) 97-103 mg tablet Take 1 tablet by mouth twice daily. 180 tablet 5 9 Active spironolactone (ALDACTONE) 25 mg tablet Take 1 tablet by mouth once daily. 90 tablet 5 9 Active ezetimibe (ZETIA) 10 mg tablet Take 1 tablet by mouth once daily. 90 tablet 3 0 Active carvedilol (COREG) 25 mg tablet Take 2 tablets by mouth twice daily with meals. 360 tablet 3 0 Active Active Problems Patient Care Coordination No te Formatting of this note migh t be different from the original. Ovidio Coulter is a 58 [address] old patient of Dr. James with a history of ischemic cardiomyopathy (dx 2014, EF 25% FC IV), CAD s/p multiple PCIs with recent LHC showing distal LM/ostial LAD disease, long standing alcohol abuse (last drink 1 week ago), hepatitis C, thrombocytopenia, HTN who presents after RHC showing borderline cardiac output and filling pressures. He was admitted for expedited evaluation for high- risk revascularization of LM/LAD. He had chest pain while bearing down, not responsive to nitroglycerin and was transferred to CICU with concern for ACS with known high grade lesion. Problem Noted Date Diagnosed Date Obesity, Class II, BMI 35-39.9 01/01/2019 Preop testing 12/29/2018 Overview (12/29/2018): [facility] PRE[facility] Surgeon: Karl Parra M.D. Informed Consent Completed: No STS Score: 2.652% CAD: Yes - CAD on Problem List: Yes Is intended procedure a CABG: Yes - is a beta anjelica ordered? Yes H & P completed: Yes PA/LAT: Completed CT: Completed MRI: N/A LE US: N/A Cath: Yes - reviewed: No - OSH EKG: Completed Is patient on Amiodarone? No Echo:Completed EF %: 25% PI's: Completed Carotid: N/A Mapping: N/A Dental: N/A PFT's: Pending Recent Labs 12/29/18 0136 WBC 3.40* HB 12.8* HCT 39.0 PLT 87* INR 1.2 CREAT 1.33* UA: Abnormal HCG:N/A ABO/ABO Confirmed: Yes Blood ordered: No Willing to accept blood: Yes SA Swab: Yes - results: Negative Last Dose of Anticoagulation: Heparin Op Note: N/A Pacemaker Check: N/A Implants: no Consults: Interventional:team has consulted CTS and intervention for options - Revasc by PCI would most likely be LM-LAD crossover stenting. There is no residual disease in LCx or RCA. - However would be at higher risk of bleeding given thrombocytopenia/EtOH with need for DAPT. He is currently on aspirin and plavix. - No known recent GI bleeding. Had an episode several years ago. - Please obtain colonoscopy and EGD from [place], [place] evaluation for this. - pending MRI team ordered given possible ICD in future. - Likely no need for impella given localized ostial LAD disease. - discussed importance of ongoing EtOH cessation - continue aspirin and clopidogrel challenge currently - pending JULIET/DCCV Saturday if still in atrial fibrillation We will continue to follow with you as workup is complete. Case to be discussed with staff once workup is complete. DM: No Hemoglobin A1C (%) Date Value 12/26/2018 4.2 Cardiac Surgical prep: Yes SIGNATURE: Raysa Jeter APRN.CNP DATE of SERVICE: 12/29/2018 TIME of SERVICE: 6:34 PM CHECKED BY: Obesity, Class III, BMI >= 40 12/28/2018 Unstable angina pectoris 12/27/2018 Overview (12/27/2018): Known high grade LM/Ostial LCx lesion Now with chest pain after bearing down No EKG changes but CP not responsive to SL nitro, mild improvement with IV nitroglycerin Plan; - Trop and CKMB x 3 - Repeat EKG x 3 - Nitroglycerin gtt - Consider IABP if CP does not respond to above - CXR Paroxysmal atrial fibrillation 12/27/2018 Overview (12/27/2018): New pAF on this admission Heparin gtt for AC Consider cardioversion if remains in Afib and has been on Ac for 48 hours Chronic systolic heart failure 12/26/2018 Overview (12/27/2018): ICM EF 25% with G2DD No significant valvular abnormalities On spironolactone,ACEi, BB, and hydral/isdn at home RHC on admission showed RA 9, RV 42/7, PA 42/20, PCWP 22, CI (2.06 - thermo, 1.68 michelle) PA sat 60.9% Plan; - Consider Crowley Quentin catheter placement and SGT Cardiogenic shock 12/25/2018 Overview (12/27/2018): RHC on presentation showed RA 9, RV 42/7, PA 42/20, PCWP 22, CI (2.06 - thermo, 1.68 michelle) PA sat 60.9% Chronic gout of foot 05/27/2015 Chronic hepatitis C without hepatic coma 016 Alcoholism 05/27/2015 Overview (12/27/2018): Long standing history Actively drinking S/P PTCA (percutaneous transluminal coronary ang ioplasty) 05/27/2015 Coronary artery disease of n ative artery of [place] heart with stable angina pectoris 05/27/2015 Overview (12/27/2018): Long standing history of CAD s/p multiple PCI, last in 2017 to LCx, on DAPT Recent SPECT showed severe inferior fixed defect. He underwent LHC which showed severe ostial LAD disease and mosteral Cx RCA. FFR of LM to Lcx was 0.88 Transferred to [facility] for expedited evaluation of CABG vs high risk PCI Pl;an; - CTS evaluation - Intervention team evaluation Stented coronary artery 05/27/2015 Overview (12/27/2018): See CAD Last PCi in 2016 Given potential for OHS, will hold DAPT for now Primary hypertension 05/27/2015 Thrombocytopenia 02/15/2015 Overview (12/27/2018): Unclear reason for thrombocytopenia Baseline plt around 90-130k Immunizations Immunization Administration Dates Next Due pneumococcal polysaccharide (PPV23) vaccine, 23 valent (PNEUMOVAX 23) 12/31/2018 tetanus diphtheria pertussis (Tdap) vaccine, age 7+ yr (ADACEL, BOOSTRIX) 06/14/2017 Family History Medical History Relation Comments Cancer Mother Relation Status Comments Father Alive Mother Social History Tobacco Use Types Packs/Day Years Used Date Smoking Tobacco: Never Smokeless Tobacco: Never Alcohol Use Standard Drinks/Week Comments Yes 24 (1 standard drink = 0.6 oz pu re alcohol) PHQ-2 Answer Date Recorded PHQ2 Score 0 12/25/2018 Area Deprivation Index Answer Date Kostas rded National Score (1-100), lower number is lower ri sk Not on file 04/27/2020 State Score (1-10), lower number is lower risk N ot on file 04/27/2020 Data from: https://www.neighborhoodatlas.medicine.[facility].edu/. Last address used for calculation Not on file 04/27/2020 Sex and Gender Information Value Date Recorded Sex Assigned at Not on file Legal Sex Male 9:54 AM EDT Gender Identity Not on file Sexual Orientation Not on file Last Filed Vital Signs Vital Sign Reading Time Taken Comments Blood Pressure 126/86 03/06/2019 11:53 AM EDT Pulse 67 03/06/2019 11:53 AM EDT Temperature 36.9 C (98.5 F) 01/01/2019 2:06 PM EDT Respiratory Rate 18 01/01/2019 2:06 PM EDT Oxygen Saturation 99% 03/06/2019 11:53 AM EDT RA Inhaled Oxygen Concentration - - Weight 136.1 kg (300 lb) 03/06/2019 11:53 AM EDT Height 182.9 cm (6') 03/06/2019 11:53 AM EDT Body Mass Index 40.69 03/06/2019 11:53 AM EDT Plan of Treatment Health Maintenance Due Date Last Done Comments Anxiety Screening 1977 Depression Screening [address] Colonography 2004 Cologuard (FIT-DNA) 2004 Colonoscopy 2004 Colorectal Cancer Screening 2004 Fecal Occult Blood 2004 Prostate Cancer Screening Discussion 2004 Sigmoidoscopy 2004 Shingrix Vaccine (1 of 2) 2009 Pneumococcal Vaccine: 50+ (2 of 2 - PCV) 01/01/2020 12/31/2018, 08/14/2011 Diabetes Screening 03/31/2023 03/31/2020, 1 05/30/2019, 12/02/2019, Additional history exists Lipid Screening 01/09/2024 01/08/2019, 12/26/2018 Covid-19 Vaccine (1 - 2023-2 5 season) 2024 Advance Directive Discussion 2024 Influenza Vaccine (Season Ended) 2025 08/14/19 12 DTaP,Tdap,Td Vaccine (3 - Td or Tdap) 02/11/2029 02/11/2019, 06/14/2017 RSV Vaccine (1 - 1-dose 75+ series) 2034 Hepatitis C Screening Completed 01/01/2019 , 12/26/2018, 12/26/2018, Additional history exists Procedures Procedure Name Priority Date/Time Associated Diagnosis Comments COMPREHENSIVE METABOLIC PANEL Routine 03/06/2019 10:32 AM EDT Chronic combined systolic and diastolic heart failure (HCC) LIPID PANEL, FASTING Routine 01/08/2019 1:10 PM EDT Myocardial infarction type 2 (HCC) HEPATITIS C GENOTYPE Routine 01/01/2019 7:56 AM EDT from Last 3 Months or Most Recently Relevant to Health Maintenance Results * (ABNORMAL) COMP METABOLIC PANEL (03/06/2019 10:32 AM EDT) Pathologist [facility] Protein, Total 7.0 6.3 - 8.0 g/dL 03/06/2019 1:58 PM EDT [facility] Albumin 3.1(L) 3.9 - 4.9 g/dL 03/06/2019 1:58 PM EDT [facility] Calcium 8.7 8.5 - 10.2 mg/dL 03/06/2019 1:58 PM EDT [facility] Bilirubin, Total 0.7 0.2 - 1.3 mg/dL 03/06/2019 1:58 PM EDT [facility] Alkaline Phosphatase 70 38 - 113 U/L 03/06/2019 1:58 PM EDT [facility] AST 66(H) 14 - 40 U/L 03/06/2019 1:58 PM EDT [facility] Glucose 99 74 - 99 mg/dL 03/06/2019 1:58 PM EDT [facility] Comment: The [place] Diabetes Association (ADA) provides guidance for cutoff values for fasting glucose and random glucose. The ADA defines fasting as no caloric intake for at least 8 hours. Fasting plasma glucose results between 100 to 125 mg/dL indicate increased risk for diabetes (prediabetes). Fasting plasma glucose results greater than or equal to 126 mg/dL meet the criteria for diagnosis of diabetes. In the absence of unequivocal hyperglycemia, results should be confirmed by repeat testing. In a patient with classic symptoms of hyperglycemia or hyperglycemic crisis, random plasma glucose results greater than or equal to 200 mg/dL meet the criteria for diagnosis of diabetes. Reference: Standards of Medical Care in Diabetes 2016, [place] Diabetes Association. Diabetes Care. 2016.39(Suppl 1). BUN 18 9 - 24 mg/dL 03/06/2019 1:58 PM EDT [facility] Creatinine 1.18 0.73 - 1.22 mg/dL 03/06/2019 1:58 PM EDT [facility] Sodium 141 136 - 144 mmol/L 03/06/2019 1:58 PM EDT [facility] Potassium 3.0(L) 3.7 - 5.1 mmol/L 03/06/2019 1:58 PM EDT [facility] Chloride 103 97 - 105 mmol/L 03/06/2019 1:58 PM EDT [facility] CO2 25 22 - 30 mmol/L 03/06/2019 1:58 PM EDT [facility] Anion Gap 13 9 - 18 mmol/L 03/06/2019 1:58 PM EDT [facility] ALT 38 10 - 54 U/L 03/06/2019 1:58 PM EDT [facility] eGFR- >60 03/06/2019 1:58 PM EDT [facility] eGFR-All Other Races >60 . 03/06/2019 1:58 PM EDT [facility] Comment: eGFR (Estimated GFR) Units of measure: mL/min/1.73 meters squared eGFR is derived from the reexpressed MDRD Study equation using the following parameters: serum creatinine, age, gender and race. The creatinine assay has been calibrated to be traceable to IDMS. An eGFR <60 mL/min/1.73m2 for >3 months is consistent with chronic kidney disease. Refer to KDOQI guidelines for clinical interpretation. In patients with unstable renal function, e.g. those with acute kidney injury, the eGFR may not accurately reflect actual GFR. Blood specimen (specimen) BLOOD SPECIMEN / Unknown 03/06/2019 10:32 AM EDT 03/06/2019 10:34 AM EDT Jaren Staley MD LABORATORY Final Result [facility] [address] [place] [address] [facility] [address] [place] [address] * (ABNORMAL) LIPID PANEL BASIC (01/08/2019 1:10 PM EDT) Cholesterol, Total 137 <200 mg/dL 01/08/2019 4:49 PM [facility] Comment: <200 mg/dL, Desirable 200-239 mg/dL, Borderline high >239 mg/dL, High Triglyceride 128 <150 mg/dL 01/08/2019 4:49 PM [facility] Comment: <150 mg/dL, Normal 150-199 mg/dL, Borderline high 200-499 mg/dL, High >499 mg/dL, Very high HDL Cholesterol 39(L) >39 mg/dL 9 4:49 PM [facility] Comment: 40-59 mg/dL, Acceptable >59 mg/dL, High: Negative risk factor for coronary heart disease <40 mg/dL, Low: Positive risk factor for coronary heart disease LDL Cholesterol, Calculated 72 <100 mg/dL 01/08/2019 4:49 PM [facility] Comment: <100 mg/dL, Optimal 100-129 mg/dL, Near optimal/above optimal 130-159 mg/dL, Borderline high 160-189 mg/dL, High >189 mg/dL, Very high Secondary prevention optimal LDL Cholesterol levels are recommended to be < 70 mg/dL Non HDL Cholesterol 98 <130 mg/dL 01/08/2019 4:49 PM [facility] Comment: <130 mg/dL, Optimal 130-159 mg/dL, Near optimal/above optimal 160-189 mg/dL, Borderline high 190-219 mg/dL, High >219 mg/dL, Very high Secondary prevention optimal non HDL Cholesterol levels are recommended to be < 100 mg/dL Fasting Time 12 hrs 01/08/2019 1:19 PM [facility] VLDL Cholesterol 26 <30 mg/dL 01/09/20 19 4:49 PM [facility] TC:HDL Ratio 3.51 <5.10 01/08/2019 4:49 PM [facility] LDL:HDL Ratio 1.85 <2.54 01/08/2019 4:49 PM [facility] Comment: Reference: 1. National Cholesterol Education Program ATP III Guideline At-A-Glance Quick Desk Reference: National Heart, Lung, and Blood [place]. National Institutes of Health. 2001: NIH Publication No. 01-3305. 2. An International Atherosclerosis Society position paper: global recommendations for the management of dyslipidemia: executive summary, Atherosclerosis. 2014: 232(2):410-413. Blood specimen (specimen) BLOOD SPECIMEN / Unknown 01/08/2019 1:10 PM EDT 01/08/2019 1:12 PM EDT Rodri Ledesma MD LABORATORY Final Result Performing Organization Address [facility] Co de Phone Number [facility] [address] [place] [address] [facility] [address] [place] [address] * (ABNORMAL) HEPATITIS C GENOTYPE (01/01/2019 7:56 AM EDT) Hepatitis C Genotype 1a(A) 01/02/2019 2:49 PM EDT [facility] Comment: This test was developed and its performance characteristics determined by [facility]'s [facility] [place] ([facility]). It has not been cleared or approved by the FDA. [facility] is regulated under CLIA as qualified to perform high complexity testing. This test is used for clinical purposes. It should not be regarded as investigational or for research. Blood specimen (specimen) BLOOD SPECIMEN / Unknown 01/01/2019 7:56 AM EDT 01/01/2019 8:06 AM EDT Johnna Pitts MD LABORATORY Final Result Performing Organization Address [facility] Co de Phone Number [facility] [address] [place] [address] [facility] [employer] [address] [place] [address] from Last 3 Months or Most Recently Relevant to Health Maintenance Insurance [facility] DUAL COMPLETE HMO SNP MEDICAID [place] Care Teams Marking Clerk Relationship Specialty Start Date End Date Delma Blakely, CLINICAL APPLICATION SPECIALIST PCP - General Family Medicine 02/04/15 Levon Arrington DO [address] [address] Referring Cardiology 03/06/19
--- OUTSIDE RECORDS SUMMARY | 2024-11-03 16:41 | XMS_ITS | Encounter Summary ---
Author Organization [facility] tem Address [id number] [address] [place] [address] Care Team Providers Care Drum Stock Clerk Name Role Phone Estrella Medina Neal CRYSTALIZER-SENIOR CHEMICAL ENGINEER Primary Care Pr ovider Encounter Details Date Type Department Care Team (Late Contact Info) Description 08/29/2023 Orders Only [facility] [address] [place] [address] Rayshawn Gracia CMA JOHNIE (acute kidney injury) ([facility]) (Primary Dx) Social History Tobacco Use Types Packs/Day Years Used Date Smoking Tobacco: Never Smokeless Tobacco: Never Alcohol Use Standard Drinks/Week Comments Not Currently 28 (1 standard drink = 0.6 oz pu re alcohol) not since december 2022 [facility] Utilities Answer Date Recorded In the past 12 months has Singspiel, gas, oil, or water Immunity Project threatened to shut off services in your [...] often do you attend chur ch or samaritan services? Never 12/26/2022 Do you belong to any clubs o r organizations such as restorationism groups, unions, fraternal or athletic groups, or [...] Answer Date Recorded Total Score 0 12/26/2022 [facility] - Occupational Stress [...] Recorded Do you need help finding a l ocal career center and/or a training program? No 12/26/2022 Hunger Screening Answer Date Recorded Within the past 12 months we worried whether our food would run out before we got money to buy more. Never True 08/27/2023 Within the past 12 months th e food we bought just didn't last and we didn't have money to get more. Never True 08/27/2023 Purpose - Life Answer Date Recorded I [...] as of this encounter Visit Diagnoses Diagnosis JOHNIE (acute kidney injury)- Primary documented in this encounter Additional Health Concerns Infection Onset Date Last Indicated Resolved Time Enteric Rule-Out 10/27/2024 10/27/2024 10/27/2024 2:27 PM EDT C. Difficile 10/27/2024 10/27/2024 Assessment Noted Time PHQ-9 Depression Total Score: 0 12/27/19 23 1:44 PM EDT documented as of this encounter Care Teams Drum Stock Clerk Relationship Specialty Start Date End Date Estrella Medina, CRYSTALIZER-SENIOR CHEMICAL ENGINEER [address] [place] [address] PCP - General Nurse Practitioner 05/19/24 documented as of this encounter
--- OUTSIDE RECORDS SUMMARY | 2024-11-03 16:41 | XMS_ITS | Encounter Summary ---
Author Organization [facility] Address [address] [facility] [place] [address] Care Team Providers Care Administrative Accountant Name Role Phone Joaquin Leonard MD Unavailable Estrella Medina NP Unavailable [phone] Joaquin Leonard MD Primary Care Provider [phone] Encounter Details Date Type Department Care Team ([facility] Contact Info) Description 03/02/2024 Orders Only [facility] [address] [place] [address] Estrella Medina NP Social History Tobacco Use Types Packs/Day Years [...] Date/Time Associated Diagnosis Comments SCANNED LABS Routine 03/02/2024 12:46 PM EDT documented in this encounter Results * SCANNED LABS (03/02/2024 12:46 PM EDT) Estrella Medina HEBREW PROFESSOR LAB CHG PERFORMABLES Fin al Result documented in this encounter Visit Diagnoses Not on filedocumented in this encounter Care Teams Administrative Accountant Relationship Specialty Start Date End Date Joaquin Leonard MD [address] [place] [address] PCP - Aet 08/19/23 Joaquin Leonard MD [address] [place] [address] PCP - General Family Medicine 01/30/24 Estrella Medina NP [address] [place] [address] Nurse Practitioner Family Medicine 12/23/23 documented as of this encounter
--- OUTSIDE RECORDS SUMMARY | 2024-11-03 16:41 | XMS_ITS | Encounter Summary ---
Author Organization [facility] Address [address] [place] [address] Care Team Providers Care Pneumatic Tool Operator Name Role Phone Shaikh SHAUNA Gray Primary Care Provider [phone] Joaquin Leonard MD Unavailable Estrella Medina PLANT BIOLOGY PROFESSOR Unavailable [phone] Joaquin Leonard MD Primary Care Provider [phone] Elizabeth Hong LPN Unavailable Reason for Visit * Reason Comments Med Refill Encounter Details Date Type Department Care Team (Late st Contact Info) Description 10/22/2023 [facility] [address] [place] [address] Joaquin Leonard MD [address] [place] [address] Social History Tobacco Use Types Packs/Day Years [...] on filedocumented in this encounter Care Teams Pneumatic Tool Operator Relationship Specialty Start Date End Date Shaikh Gray MD [address] [place] [phone] PCP - General Internal Medicine 09/10/23 12/22/23 Joaquin Leonard MD [address] [place] [address] PCP - [employer] 08/19/23 Joaquin Leonard MD [address] [place] [address] PCP - General Family Medicine 01/30/24 Estrella Medina NP [address] [place] [address] Nurse Practitioner Family Medicine 12/23/23 Elizabeth Hong LPN [address] [place] [address] Licensed Practical Nurse Family Medicine 02/03/2402/02 documented as of this encounter
--- OUTSIDE RECORDS SUMMARY | 2024-11-03 16:41 | XMS_ITS | Encounter Summary ---
Author Organization [facility] tem Address [id number] [address] [place] [address] Care Team Providers Care Credit Risk Associate Name Role Phone Estrella Medina Neal PUBLIC INFORMATION SPECIALIST-RECORDS ADMINISTRATOR Primary Care Pr ovider Encounter Details Date Type Department Care Team (Late Contact Info) Description 08/29/2023 Orders Only [facility] [address] [place] [address] Jana Malhotra CMA JOHNIE (acute kidney injury) ([facility]) (Primary Dx) Social History Tobacco Use Types Packs/Day Years Used Date Smoking Tobacco: Never Smokeless Tobacco: Never Alcohol Use Standard Drinks/Week Comments Not Currently 28 (1 standard drink = 0.6 oz pu re alcohol) not since december 2022 [facility] Utilities Answer Date Recorded In the past 12 months has [employer], gas, oil, or water [employer] threatened to shut off services in your [...] often do you attend chur ch or christianity services? Never 12/26/2022 Do you belong to any clubs o r organizations such as buddhism groups, unions, fraternal or athletic groups, or [...] Answer Date Recorded Total Score 0 12/26/2022 [facility] of Occupat ional [facility] - Occupational Stress Questionnaire Answer Date Recorded [...] documented as of this encounter Care Teams Credit Risk Associate Relationship Specialty Start Date End Date Estrella Medina, PUBLIC INFORMATION SPECIALIST-RECORDS ADMINISTRATOR [address] [place] [address] PCP - General Nurse Practitioner 05/19/24 documented as of this encounter
--- OUTSIDE RECORDS SUMMARY | 2024-11-03 16:41 | XMS_ITS | Encounter Summary ---
Author Organization [facility] tem Address [facility] [place][id number] [address] [place] [address] Care Team Providers Care Medical Driver Name Role Phone Estrella Medina Neal UTILITY PORTER-RETAIL SUPPORT SPECIALIST Primary Care Pr ovider Encounter Details Date Type Department Care Team (Late Contact Info) Description 02/21/2024 Telephone [facility] [address] [place] [phone] Neha Vega CNA Social History Tobacco Use Types Packs/Day Years Used Date Smoking Tobacco: Never Smokeless Tobacco: Never Alcohol Use Standard Drinks/Week Comments Not Currently 28 (1 standard drink = 0.6 oz pu re alcohol) not since december 2022 [facility] Utilities Answer Date Recorded In the past 12 months has [employer] electric, gas, oil, or water company threatened [...] often do you attend chur ch or presybeterian services? Never 12/26/2022 Do you belong to any clubs o r organizations such as alevism groups, unions, fraternal or athletic groups, or [...] Answer Date Recorded Total Score 0 12/26/2022 [facility] of Occupat ional Health - Occupational [...] Recorded Do you need help finding a [facility] career center and/or a training program? [...] documented as of this encounter Care Teams Medical Driver Relationship Specialty Start Date End Date Estrella Medina, UTILITY PORTER-RETAIL SUPPORT SPECIALIST [address] [facility] [place] [address] PCP - General Nurse Practitioner 05/19/24 documented as of this encounter
--- OUTSIDE RECORDS SUMMARY | 2024-11-03 16:41 | XMS_ITS | Encounter Summary ---
Author Organization [facility] Address [address] [facility] [place] [address] Care Team Providers Care Cooling Machine Operator Name Role Phone Joaquin Leonard MD Unavailable Estrella Medina NP Unavailable [phone] Joaquin Leonard MD Primary Care Provider [phone] Reason for Visit * Reason Comments Med Refill Encounter Details Date Type Department Care Team ([facility] Contact Info) Description 10/16/2024 Refill [facility] [address] [place] [address] Denia Aponte NP [address] [place] [address] Insomnia, unspecified type; Chronic GERD; Essential hypertension, benign Social History Tobacco Use Types Packs/Day Years [...] as of this encounter Visit Diagnoses Diagnosis Insomnia, unspecified type Chronic GERD Essential hypertension, benign Essential hypertension, benign documented in this encounter Care Teams Cooling Machine Operator Relationship Specialty Start Date End Date Joaquin Leonard MD [address] [place] [address] PCP - [employer] 08/19/23 Joaquin Leonard MD [address] [place] [address] PCP - General Family Medicine 01/30/24 Estrella Medina NP [address] [place] [phone] Nurse Practitioner Family Medicine 12/23/23 documented as of this encounter
--- OUTSIDE RECORDS SUMMARY | 2024-11-03 16:41 | XMS_ITS | Encounter Summary ---
Author Organization [facility] Address [id number] [address] [place] [address] Care Team Providers Care Nutrition Club Ambassador Name Role Phone Estrella Medina CABLE INSPECTOR-SUPERINTENDENT PIPELINES Primary Care Pr ovider Reason for Visit * Reason Comments Med Refill Encounter Details Date Type Department Care Team ([facility] Contact Info) Description 10/11/2021 Refill [facility] [address] [place] [phone] Ricarda Vega, CABLE INSPECTOR-SUPERINTENDENT PIPELINES [address], [address] [address] Med Refill Social History Tobacco Use Types Packs/Day Years Used Date Smoking Tobacco: Never Smokeless Tobacco: Never Alcohol Use Standard Drinks/Week Comments Yes 0 (1 standard drink = 0.6 oz pur e alcohol) everyday- (6-pack a day) Childcare Answer Date Recorded Childcare Unknown 10/17/2018 Employment Answer Date Recorded Employment Unknown 10/17/2018 Purpose - Life Answer Date Recorded Purpose and direction in life Unknown Sex and Gender Information Value Date Recorded Sex Assigned at Not on file Legal Sex Male 11:24 AM EDT Gender Identity Not on file Sexual Orientation Not on file COVID-19 Exposure Response Date Recorded In the last 10 days, have yo u been in contact with someone who was confirmed or suspected to have Coronavirus/COVID-19? No / Unsure 10/13/2021 10:44 AM EDT documented as of this encounter Miscellaneous Notes * Telephone Encounter - Adriana Drew RN - 10/11/2021 5:10 PM EDT Currently admitted to [place] documented in this encounter Plan of Treatment [...] documented as of this encounter Care Teams Nutrition Club Ambassador Relationship Specialty Start Date End Date Estrella Medina, CABLE INSPECTOR-SUPERINTENDENT PIPELINES [address] [place] [address] PCP - General Nurse Practitioner 05/19/24 documented as of this encounter
--- OUTSIDE RECORDS SUMMARY | 2024-11-03 16:41 | XMS_ITS | Encounter Summary ---
Author Organization [facility] Address [address] [place] [address] Care Team Providers Care Biologist Name Role Phone Joaquin Leonard MD Unavailable Estrella Medina NP Unavailable [phone] Joaquin Leonard MD Primary Care Provider [phone] Encounter Details Date Type Department Care Team (Late st Contact Info) Description 07/29/2024 [facility] [address] [place] [address] Joaquin Leonard MD [address] [place] [address] Social History Tobacco Use Types [...] on filedocumented in this encounter Care Teams Biologist Relationship Specialty Start Date End Date Joaquin Leonard MD [address] [place] [address] PCP - [employer] 08/19/23 Joaquin Leonard MD [address] [place] [address] PCP - General Family Medicine 01/30/24 Estrella Medina NP [address] [place] [address] Nurse Practitioner Family Medicine 12/23/23 documented as of this encounter
--- OUTSIDE RECORDS SUMMARY | 2024-11-03 16:41 | XMS_ITS | Encounter Summary ---
Author Organization [facility] Address [address] [place] [address] Care Team Providers Care Line Service Person Name Role Phone Shaikh SHAUNA Gray Primary Care Provider [phone] Joaquin Leonard MD Unavailable Estrella Medina PROJECTION TECHNICIAN Unavailable [phone] Joaquin Leonard MD Primary Care Provider [phone] Elizabeth Hong LPN Unavailable Reason for Visit * Reason Comments Med Refill Encounter Details Date Type Department Care Team (Late st Contact Info) Description 12/20[facility]2023 [facility] [address] [place] [address] Shaikh Gray MD [address] [place] [address] Athscl heart disease of [place] coronary artery w/o ang pctrs Social History Tobacco Use Types Packs/Day Years [...] as of this encounter Visit Diagnoses Diagnosis Athscl heart disease of [place] coronary artery w/o ang pctrs documented in this encounter Care Teams Line Service Person Relationship Specialty Start Date End Date Shaikh Gray MD [address] [place] [address] PCP - General Internal Medicine 09/10/23 12/22/23 Joaquin Leonard MD [address] [place] [address] PCP - [employer] 08/19/23 Joaquin Leonard MD [address] [place] [address] PCP - General Family Medicine 01/30/24 Estrella Medina NP [address] [place] [address] Nurse Practitioner Family Medicine 12/23/23 Elizabeth Hong LPN [address] [place] [address] Licensed Practical Nurse Family Medicine 02/03/2402/02 documented as of this encounter
--- OUTSIDE RECORDS SUMMARY | 2024-11-03 16:41 | XMS_ITS | Encounter Summary ---
Author Organization [facility] tem Address [facility] [id number] [address] [place] [address] Care Team Providers Care Associate Professor Of Church Music Name Role Phone Estrella Medina CONTENT DEVELOPER-RESISTANCE WELDING MACHINE OPERATOR Primary Care Pr ovider Encounter Details Date Type Department Care Team ([facility] Contact Info) Description 02/08/2023 Orders Only [facility] [address] [facility] [place] [phone] Ambreen Chavez, RN Social History Tobacco Use Types Packs/Day [...] often do you attend chur ch or restorationism services? Never 12/26/2022 Do you belong to any clubs o r organizations such as pentecostalism groups, unions, fraternal or athletic groups, or [...] Answer Date Recorded Total Score 0 12/26/2022 [facility]ational [facility] Questionnaire Answer Date Recorded [...] Do you need help finding a l al career center and/or a training program? [...] on file documented as of this encounter Functional Status documented as of this encounter Plan of Treatment Not on file documented as of this encounter Visit Diagnoses Not on filedocumented in this encounter Additional Health Concerns Infection Onset Date Last Indicated Resolved Time Enteric Rule-Out 02/10/2023 02/10/2023 02/10/2023 12:08 PM EDT COVID-19 Rule-Out 08/26/2023 08/26/2023 08/27/2023 12:44 AM EDT Enteric Rule-Out 10/27/2024 10/27/2024 10/27/2024 2:27 PM EDT C. Difficile 10/27/2024 10/27/2024 Assessment Noted Time PHQ-9 Depression Total Score: 0 12/27/19 23 1:44 PM EDT documented as of this encounter Care Teams Associate Professor Of Church Music Relationship Specialty Start Date End Date Estrella Medina, LORENZO-RESISTANCE WELDING MACHINE OPERATOR [address] [place] [address] PCP - General Nurse Practitioner 05/19/24 documented as of this encounter
--- OUTSIDE RECORDS SUMMARY | 2024-11-03 16:42 | XMS_ITS | Encounter Summary ---
Author Organization [employer] [facility] Address [id number] [address] [place] [address] Care Team Providers Care Hat Conditioner Name Role Phone Estrella Medina BARREL SCRAPER-STUDIO MODEL Primary Care Pr ovider Reason for Visit * Reason Onset Date Comments scrotal abcess 10/25/2024 Encounter Details Date Type Department Care Team ([facility] Contact Info) Description 10/25/2024 Telephone [facility] [address] [place] [address] Chio Parsons, CHRISTINA scrotal abcess Social History Tobacco Use Types Packs/Day Years Used Date Smoking Tobacco: Never Smokeless Tobacco: Never Alcohol Use Standard Drinks/Week Comments Yes 28 (1 standard drink = 0.6 oz pu re alcohol) every other day [facility] Utilities Answer Date Recorded In the past 12 months has [employer], gas, oil, or water [employer] threatened to shut off services in your [...] often do you attend chur ch or holiness services? Never 12/26/2022 Do you belong to any clubs o r organizations such as methodist groups, unions, fraternal or athletic groups, or [...] Answer Date Recorded Total Score 0 10/26/2024 [facility] of Occupat ional Health - Occupational [...] Recorded Do you need help finding a [facility] career center and/or a training program? No [...] encounter Miscellaneous Notes * Telephone Encounter - Chio Parsons RN - 10/25/2024 3:51 PM EDT Contract: [address] [place] [address] Dr Bowles calling for pt with Scrotal abscess * Telephone Encounter - Chio Parsons RN - 10/25/2024 3:51 PM EDT Called Jaren Silveira MD on cell transferred to Dr Bowles documented in this encounter Plan of Treatment Not on file documented as of this encounter Visit Diagnoses Not on filedocumented in this encounter Additional Health Concerns Assessment Noted Time PHQ-9 Depression Total Score: 0 12/27/19 23 1:44 PM EDT documented as of this encounter Care Teams Hat Conditioner Relationship Specialty Start Date End Date Estrella Medina, LORENZO-STUDIO MODEL [address] [place] [address] PCP - General Nurse Practitioner 05/19/24 documented as of this encounter
--- OUTSIDE RECORDS SUMMARY | 2024-11-03 16:42 | XMS_ITS | Encounter Summary ---
Author Organization [facility] Address [facility] [id number] [address] [place] [address] Care Team Providers Care Practice Clinician Name Role Phone Estrella Medina GOLD BUYER-DRAFTING TECHNICIAN Primary Care Pr ovider Reason for Visit * Reason Comments Med Change Request Encounter Details Date Type Department Care Team ([facility] Contact Info) Description 10/29/2024 Refill [facility] [address] [place] [phone] Sawyer Powell MD [address] [place] [address], [address] [place], [place] [phone] Med Change Request Social History Tobacco Use Types Packs/Day Years Used Date Smoking Tobacco: Never Smokeless Tobacco: Never Alcohol Use Standard Drinks/Week Comments Yes 28 (1 standard drink = 0.6 oz pu re alcohol) every other day [facility] Utilities Answer Date Recorded In the past 12 months has [employer], gas, oil, or water [employer] threatened to shut off services in your [...] 12/26/2022 How often do you attend chur or amish services? Never 12/26/2022 Do you belong to any clubs o r organizations such as restorationist groups, unions, fraternal or athletic groups, or [...] Answer Date Recorded Total Score 0 10/26/2024 [facility] of Occupat ional Health - Occupational Stress [...] Recorded Do you need help finding a [facility] career center and/or a training program? [...] encounter Miscellaneous Notes * Telephone Encounter - Mary Aranda RN - 10/29/2024 9:50 AM EDT Wrong provider, sent in by another provider today documented in this encounter Plan of Treatment Not on file documented as of this encounter Goals Goal Patient Goal Type Associated Problems Recent Progress Patient-Stated? Author home General Yes Anastacia Bartlett RN Note: Evaluation of progress towards goal: Patient stated home with home care or possible SNF depending on discharge needs. documented as of this encounter Visit Diagnoses Not on filedocumented in this encounter Additional Health Concerns Infection Onset Date Last Indicated Resolved Time C. Difficile 10/27/2024 10/27/2024 Assessment Noted Time PHQ-9 Depression Total Score: 0 10/27/19 25 10:08 AM EDT documented as of this encounter Care Teams Practice Clinician Relationship Specialty Start Date End Date Estrella Medina, GOLD BUYER-DRAFTING TECHNICIAN [address] [place] [address] PCP - General Nurse Practitioner 05/19/24 documented as of this encounter
--- OUTSIDE RECORDS SUMMARY | 2024-11-03 16:42 | XMS_ITS | Encounter Summary ---
Author Organization [facility] tem Address [id number] [address] [place] [address] Care Team Providers Care Bilingual Patient Support Caseworker Name Role Phone Estrella Medina CLOCK REPAIR TECHNICIAN-HAIR BLENDER Primary Care Pr ovider Encounter Details Date Type Department Care Team ([facility] Contact Info) Description 10/26/2024 Telephone [facility] [address] [place] [phone] Jaren Silveira MD [address] [place] [id number] Social History Tobacco Use Types Packs/Day Years Used Date Smoking Tobacco: Never Smokeless Tobacco: Never Alcohol Use Standard Drinks/Week Comments Yes 28 (1 standard drink = 0.6 oz pu re alcohol) every other day [facility] Utilities Answer Date Recorded In the past 12 months has [employer], gas, oil, or water [employer] threatened to shut off services in your [...] often do you attend chur ch or sikhism services? Never 12/26/2022 Do you belong to any clubs o r organizations such as adventist groups, unions, fraternal or athletic groups, or [...] Answer Date Recorded Total Score 0 10/26/2024 [facility] of Occupat ional Health - [...] on file Legal Sex Male 11:24 AM D[place] Gender Identity Not on file Sexual Orientation Not on file documented as of this encounter Functional Status * Question Answer Date of Assessment Author Functional Status Independent 10/26/2024 11:24 AM Anastacia Cardona RN * Audit-C Score Answer Date of [...] drinking? 3 or 4 10/26/2024 10:08 AM EDT Mony Gallagher, RN Q3: How often do you have six or more drinks on one occasion? Weekly 10/26/2024 10:08 AM EDT Mony Gallagher, RN documented as of this encounter Miscellaneous Notes * Telephone Encounter - Jaren Silveira MD - 10/26/2024 1:54 PM EDT Needs follow up in [place] in one-month documented in this encounter Plan of Treatment [...] documented as of this encounter Care Teams Bilingual Patient Support Caseworker Relationship Specialty Start Date End Date Estrella Medina, CLOCK REPAIR TECHNICIAN-HAIR BLENDER [address] [place] [address] PCP - General Nurse Practitioner 05/19/24 documented as of this encounter
--- OUTSIDE RECORDS SUMMARY | 2024-11-03 16:42 | XMS_ITS | Encounter Summary ---
Author Organization [facility] Address [id number] [address] [place] [address] Care Team Providers Care Reach Lift Truck Driver Name Role Phone Estrella Medina SUPERVISOR BOTTLE HOUSE CLEANERS-BUDGET AND POLICY ANALYST Primary Care Pr ovider Encounter Details Date Type Department Care Team (Late st Contact Info) Description 09/23/2024 Orders Only [facility] [address] [place] [phone] External, Scanning Provider Social History Tobacco Use Types Packs/Day Years Used Date Smoking Tobacco: Never Smokeless Tobacco: Never Alcohol Use Standard Drinks/Week Comments Yes 28 (1 standard drink = 0.6 oz pu re alcohol) every other day [facility] Utilities Answer Date Recorded In the past 12 months has [employer] electric, gas, oil, or water company threatened [...] often do you attend chur ch or lutheran services? Never 12/26/2022 Do you belong to any clubs o r organizations such as mosque groups, unions, fraternal or athletic groups, or [...] Answer Date Recorded Total Score 0 12/26/2022 [facility] [employer] [facility] of Occupat ional Health - Occupational Stress [...] Recorded Do you need help finding a [facility] career center and/or a training program? No 12/26/2022 Hunger Screening Answer Date Recorded Within the past 12 months we worried whether our food would run out before we got money to buy more. Never True 07/24/2024 Within the past 12 months th e food we bought just didn't last and we didn't have money to get more. Never True 07/24/2024 Purpose - Life Answer Date Recorded I [...] Date/Time Associated Diagnosis Comments ECG 12-LEAD Routine 08/03/2024 2:27 PM EDT documented in this encounter Results * ECG 12 lead (08/03/2024 2:27 PM EDT) us Scanning Provider External ECG ORDERABLES Final Result MANUALLY TRANSCRIBED RESULTS documented in this encounter Visit Diagnoses Not on filedocumented in this encounter Additional Health Concerns Infection Onset Date Last Indicated Resolved Time Enteric Rule-Out 10/27/2024 10/27/2024 10/27/2024 2:27 PM EDT C. Difficile 10/27/2024 10/27/2024 Assessment Noted Time PHQ-9 Depression Total Score: 0 12/27/19 23 1:44 PM EDT documented as of this encounter Care Teams Reach Lift Truck Driver Relationship Specialty Start Date End Date Estrella Medina, SUPERVISOR BOTTLE HOUSE CLEANERS-BUDGET AND POLICY ANALYST [address] [place] [address] PCP - General Nurse Practitioner 05/19/24 documented as of this encounter
--- OUTSIDE RECORDS SUMMARY | 2024-11-03 16:42 | XMS_ITS | Encounter Summary ---
Author Organization [employer] [facility] tem Address [facility] [place]-[id number] [address] [place] [address] Care Team Providers Care Manager Of Loss Prevention Operations Name Role Phone Estrella Medina PRESCHOOL ASSISTANT TEACHER-FISH AND WILDLIFE WARDEN Primary Care Pr ovider Reason for Visit * Reason Onset Date Comments Syncope 05/19/2024 elevated troponin 05/19/2024 Encounter Details Date Type Department Care Team ([facility] Contact Info) Description 05/19/2024 Telephone [facility] [address] [place] [phone] Ayanna Sewell Syncope; elevated troponin Social History Tobacco Use Types Packs/Day Years Used Date Smoking Tobacco: Never Smokeless Tobacco: Never Alcohol Use Standard Drinks/Week Comments Yes 28 (1 standard drink = 0.6 oz pu re alcohol) every other day [employer] Utilities Answer Date Recorded In the past 12 months has [employer], gas, oil, or water [employer] threatened to shut off services in your [...] often do you attend chur ch or restorationist services? Never 12/26/2022 Do you belong to any clubs o r organizations such as muslim groups, unions, fraternal or athletic groups, or [...] Answer Date Recorded Total Score 0 12/26/2022 [facility] - Occupational Stress Questionnaire Answer Date Recorded [...] Recorded Do you need help finding a [facility] career center and/or a training program? No 12/26/2022 Hunger Screening Answer Date Recorded Within the past 12 months we worried whether our food would run out before we got money to buy more. Never True 05/18/2024 Within the past 12 months th e food we bought just didn't last and we didn't have money to get more. Never True 05/18/2024 Purpose - Life Answer Date Recorded I have a purpose and direction in my life. Somew hat Agree 12/26/2022 Sex and Gender Information Value Date Recorded Sex Assigned at Not on file Legal Sex Male 11:24 AM EDT Gender Identity Not on file Sexual Orientation Not on file documented as of this encounter Miscellaneous Notes * Telephone Encounter - Ayanna Sewell - 05/19/2024 7:13 AM EST [phone] [facility] [address] Sidhu re syncope, elevated troponin Secure chat sent to Dr Dang documented in this encounter Plan of Treatment [...] documented as of this encounter Care Teams Manager Of Loss Prevention Operations Relationship Specialty Start Date End Date Estrella Medina, PRESCHOOL ASSISTANT TEACHER-FISH AND WILDLIFE WARDEN [address] [place] [address] PCP - General Nurse Practitioner 05/19/24 documented as of this encounter
--- OUTSIDE RECORDS SUMMARY | 2024-11-03 16:42 | XMS_ITS | Encounter Summary ---
Author Organization [facility] [facility] tem Address [id number] [address] [place] [address] Care Team Providers Care Analyst Name Role Phone Estrella Medina BENCH HAND MACHINE-OIL FIELD ROUSTABOUT Primary Care Pr ovider Encounter Details Date Type Department Care Team ([facility] Contact Info) Description 03/23/2019 Telephone [facility] [address] [phone] Fernanda Esquivel, MARTHA Social History Tobacco Use Types Packs/Day Years Used Date Smoking Tobacco: Never Smokeless Tobacco: Never Alcohol Use Standard Drinks/Week Comments Yes 24 (1 standard drink = 0.6 oz pure alcohol) daily, has cut down to 6 pack per day during the last 6 months Childcare Answer Date Recorded Childcare Unknown 10/17/2018 [...] Infection Onset Date Last Indicated Resolved Time Respiratory Rule-Out 05/18/2019 05/18/2019 019 8:52 PM EST Enteric Rule-Out Comment:C diff positive 01/02/2023 01/02/2023 01/02/2023 2:32 PM EDT C. Difficile 01/02/2023 01/02/2023 01/26/2023 11:1 3 PM EDT Enteric Rule-Out 02/10/2023 02/10/2023 02/10/2023 12:08 PM EDT COVID-19 Rule-Out 08/26/2023 08/26/2023 08/27/2023 12:44 AM EDT Enteric Rule-Out 10/27/2024 10/27/2024 10/27/2024 2:27 PM EDT C. Difficile 10/27/2024 10/27/2024 documented as of this encounter Care Teams Analyst Relationship Specialty Start Date End Date Estrella Medina, BENCH HAND MACHINE-OIL FIELD ROUSTABOUT [address] [place] [address] PCP - General Nurse Practitioner 05/19/24 documented as of this encounter
--- OUTSIDE RECORDS SUMMARY | 2024-11-03 16:42 | XMS_ITS | Encounter Summary ---
Author Organization [facility] JAYS Sys tem Address [id number] [address] [place] [address] Care Team Providers Care Professor Of Business Name Role Phone Estrella Medina BALING MACHINE TENDER-PRESIDENT & CEO [employer] Primary Care Pr ovider Encounter Details Date Type Department Care Team (Late Contact Info) Description 10/14/2024 Orders Only [facility] [address] [place] [phone] External, Scanning Provider Social History Tobacco Use Types Packs/Day Years Used Date Smoking Tobacco: Never Smokeless Tobacco: Never Alcohol Use Standard Drinks/Week Comments Yes 28 (1 standard drink = 0.6 oz pu re alcohol) every other day [facility] Utilities Answer Date Recorded In the past 12 months has [employer], gas, oil, or water company threatened [...] often do you attend chur ch or mormon services? Never 12/26/2022 Do you belong to any clubs o r organizations such as restoration groups, unions, fraternal or athletic groups, or [...] Answer Date Recorded Total Score 0 12/26/2022 [facility] [place] of Occupat ional Health - Occupational Stress [...] Recorded Do you need help finding a [facility] career center and/or a training [...] Date/Time Associated Diagnosis Comments ECG 12-LEAD Routine 08/05/2024 3:36 PM EDT ECG 12-LEAD Routine 08/03/2024 3:35 PM EDT documented in this encounter Results * ECG 12 lead (08/05/2024 3:36 PM EDT) us Scanning Provider External ECG ORDERABLES Final Result Performing Organization Address City/[facility]/ZIP Co de Phone Number MANUALLY TRANSCRIBED RESULTS * ECG 12 lead (08/03/2024 3:35 PM EDT) us Scanning Provider External ECG [...] documented as of this encounter Care Teams Professor Of Business Relationship Specialty Start Date End Date Estrella Medina, BALING MACHINE TENDER-PRESIDENT & CEO [employer] [address] [place] [address] PCP - General Nurse Practitioner 05/19/24 documented as of this encounter
--- OUTSIDE RECORDS SUMMARY | 2024-11-03 16:42 | XMS_ITS | Clinical Summary ---
Author Organization [facility] Address [address] [place] [address] Care Team Providers Care Mica Inspector Name Role Phone Joaquin Leonard MD Unavailable Estrella Medina NP Unavailable [phone] Joaquin Leonard MD Primary Care Provider [phone] Allergies No known active allergies Medications bumetanide (Bumex) 2 MG tablet Take 2 mg by mouth in the morning and 2 mg before bedtime. 4 Active Eliquis 5 MG tabletIndications :Thrombocytopenia , unspecified TAKE 1 TABLET BY MOUTH IN THE MORNING AND TAKE 1 TABLET BEFORE BEDTIME 60 tablet 10 4 Active allopurinol (Zyloprim) 100 MG tabletIndications :Chronic gout of multiple sites, unspecified cause TAKE 1 TABLET BY MOUTH IN THE MORNING 30 tablet 10 4 Active clopidogrel (Plavix) 75 MG tablet Take 1 tablet by mouth in the morning. 4 Active Farxiga 10 MG Take 10 mg by mouth in the morning. Active magnesium oxide (Mag-Ox) 400 MG tablet Take 400 mg by mouth in the morning. 4 Active Entresto 97-103 MG tablet 4 Active atorvastatin (Lipitor) 80 MG tabletIndications :Dyslipidemia Take 1 tablet (80 mg) by mouth Daily 90 tablet 1 5 12/07/19 25 Active ezetimibe (Zetia) 10 MG tabletIndications :Dyslipidemia Take 1 tablet (10 mg) by mouth in the morning. 90 tablet 1 5 12/07/19 25 Active hydrOXYzine HCl (Atarax) 25 MG tabletIndications :Anxiety Take 1 tablet (25 mg) by mouth every 6 (six) hours if needed for anxiety 120 tablet 10 5 Active carvedilol (Coreg) 25 MG tablet Take 25 mg by mouth in the morning and 25 mg in the evening. Take with meals. 4 Active spironolactone (Aldactone) 25 MG tablet Take 1 tablet by mouth in the morning. 4 Active folic acid (Folvite) 1 MG tablet Take 1 mg by mouth in the morning. 5 11/07/19 26 Active thiamine (Vitamin B-1) 100 MG tablet Take 100 mg by mouth in the morning. 5 11/07/19 26 Active apixaban (Eliquis) 5 MG tabletIndications :Paroxysmal atrial fibrillation (HCC) Take 1 tablet (5 mg) by mouth in the morning and 1 tablet (5 mg) before bedtime. 60 tablet 2 5 Active QUEtiapine (SEROquel) 25 MG tabletIndications :Insomnia, unspecified type Take 1 tablet (25 mg) by mouth at bedtime 30 tablet 1 5 Active omeprazole (PriLOSEC) [address] capsuleIndication s:Chronic GERD Take 1 capsule (20 mg) by mouth in the morning. Take before meals. 30 capsule 1 5 Active isosorbide mononitrate ER (Imdur) 30 MG 24 hr tabletIndications :Essential hypertension, benign Take 1 tablet (30 mg) by mouth Daily 30 tablet 1 5 Active acamprosate (Campral) 333 MG EC tablet Take 333 mg by mouth in the morning and 333 mg at noon and 333 mg in the evening. 5 10/12/19 25 Active Problems Problem Noted Date Diagnosed Date Chronic kidney disease, stage 4 (severe) 025 Closed traumatic dislocation of elbow joint 07/19 Retinopathy 08/11/2024 Hepatitis B 08/11/2024 Zygomatic fracture, right si de, initial encounter for closed fracture 08/03/2024 Cocaine abuse 08/03/2024 ICD (implantable cardioverter-defibrillator) in place 04/03/2024 Bradycardia 01/08/2024 Frequent PVCs 01/08/2024 Hypokalemia 01/08/2024 Right inguinal hernia 01/08/2024 Right leg swelling 01/08/2024 Numbness and tingling of right arm 10/15/2023 Assessment & Plan (10/15/2023 11:56 AM EDT): Intermittent, ongoing for a month. Subjective weakness reported by patient. No recent injury. Pain/numbness moves upward to his shoulder. No shoulder pain/restriction in ROM No neck pain or restriction in ROM. Symptoms unchanged/unaffected by neck or shoulder movement. Normal B12 09/10 Order EMG/NCV. JOHNIE (acute kidney injury) 09/10/2023 Assessment & Plan (09/10/2023 12:25 PM EDT): Developed JOHNIE during hospital admission likely from diuresis and acute on chronic systolic HF. Last serum cr was 2.2 on day of discharge, improved from 3.3 Repeat CMP. Order handed over to the patient. HFrEF (heart failure with reduced ejection fract ion) 05/30/2023 Assessment & Plan (04/29/2024 3:58 PM EST): Had Pacemaker placed on 03/19/2024. Saw Cardiology on 04/06/2024. Unsure of next appointment. Incision site is clean and dry. No signs of infection. Assessment & Plan (01/31/2024 1:16 PM EDT): Pt following closely with Cardiology; Had recent admission for CHF exacerbation Bumex 2mg Scheduled on 02/03/2024 HF clinic; Handicap placard RX written for 5 years. Assessment & Plan (05/30/2023 12:56 PM EST): Patient has HFrEF and currentlyn on appropriate GDMT. Reiterated to the patient that he needs to follow up with cardiology. 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 Denies CP, SOB. Patient is unsure of his medications but it seems like he is using Plavix, BB and statin + zetia He has not followed up with Cardiology for a while and I stressed upon him the importance of doing that. Stage 3a chronic kidney disease 05/02/2022 Polysubstance abuse 03/31/2020 Paroxysmal atrial fibrillation 12/27/2018 Overview (09/10/2023): New pAF on this admission Heparin gtt for AC Consider cardioversion if remains in Afib and has been on Ac for 48 hours New pAF on this admission Heparin gtt for AC Consider cardioversion if remains in Afib and has been on Ac for 48 hours Ischemic cardiomyopathy 11/07/2018 Primary hypertension 05/27/2015 Assessment & Plan (01/31/2024 1:10 PM EDT): HTN: Currently taking Does not check BP at home; Denies orthostatic changes, dizziness, cough, shortness of breath, swelling in extremities. Follows cardiology very closely. Continue current regimen. Given BP log, advised pt to record BP and bring log back with them to next visit. Assessment & Plan (05/30/2023 12:53 PM EST): Above goal in office today but since I am not sure of what he is truly using for HTN, I am not in a position to make any changes. Patient asked to call office and confirm his medications once he gets home. Also to keep home BP log and bring it next appointment to ensure BP is well controlled and medications do not need to be adjusted. Chronic viral hepatitis C 05/27/2015 Thrombocytopenia 02/15/2015 Overview (05/30/2023): Unclear reason for thrombocytopenia Baseline plt around 90-130k Resolved Problems Problem Noted Date Diagnosed Date Resolved Date Exposure to STD 10/15/2023 08/11/2024 Assessment & Plan (10/15/2023 11:57 AM EDT): Reports his GF tested positive for trich Will order STD panel. Treat with metronidazole. Hospital discharge follow-up 09/10/2023 08/11/2024 Assessment & Plan (06/02/2024 1:42 PM EST): Was seen in ED on 05/18/2024 - 05/19/2024 for fall/alcohol intoxication. States he was at bar and when he came out of restroom felt a shock jolt through his body, knocking him backwards. Pacemaker was interrogated- negative findings. Pt did not lose consciousness, head CT negative. Reports he is feeling well since. States he feels he just needs to watch himself moving forward. Is following up with Cardiology this week. Assessment & Plan (09/10/2023 12:27 PM EDT): Recent hospital admission for acute on chronic systolic HF. Patient was admitted to [facility]. Diuresed with IV bumex but later on developed JOHNIE. His serum creatinine had improved on day of discharged but still elevated from his baseline. His medications were also adjusted - imdur was discontinued along with Toprol. He was started on coreg and bumex was increased to 2 mg daily Ordered BMP to follow up on serum creatinine and electrolytes. Follow up in one month Chronic heart failure with p reserved ejection fraction 05/15/2023 05/30/2023 CKD (chronic kidney disease) stage 3, GFR 30-59 ml/min 05/15/2023 08/11/2024 Assessment & Plan (04/29/2024 3:58 PM EST): Following closely with Nephrology Most recent GFR 32 Creatinine 2.4 Due to HTN, HFrEF. On Entresto and Farxiga per nephrology office. Avoid NSAIDS and nephrotoxic agents. Continue current regimen as directed by nephrology. Assessment & Plan (01/31/2024 1:13 PM EDT): Most recent GFR 32 Creatinine 2.22 Due to HTN, HFrEF. He would be a get candidate for SGLT2 inhibitors because of hx of HFrEF but I will hold off making any changes for now and contact cardiology and nephrology office. Pt next appointment is 02/27/2024 Assessment & Plan (05/30/2023 12:55 PM EST): Due to T2 HTN, HFrEF. Check labs. He used to follow up with nephrology but not anymore. He would be a get candidate for SGLT2 inhibitors because of hx of HFrEF but I will hold off making any changes for now. Essential hypertension, benign 05/15/2023 08/11/2024 Assessment & Plan (04/29/2024 3:58 PM EST): Currently taking Carvedilol Isosorbide Checks BP at home; Averages are 130's/70's Denies orthostatic changes, dizziness, cough, shortness of breath, swelling in extremities. Follows cardiology very closely. Continue current regimen. Given BP log, advised pt to record BP and bring log back with them to next visit. Assessment & Plan (10/15/2023 11:57 AM EDT): BP above goal. Coreg recently increased to 25 q12 by cardiology. He is also on bumex2 q12 -previously was on once daily dosing. Monitor for now. Will not make any changes as cardiology/nephrology managing it Thrombocytopenia, unspecified 05/15/2023 08/11/2024 Alcohol abuse 11/13/2022 08/11/2024 Encounters Date Type Department Care Team Description 10/16/2024 Refill [facility] [address] [place] [phone] Denia Aponte NP Insomnia, unspecified type; Chronic GERD; Essential hypertension, benign 09/23/2024 Orders Only [facility] [address] [place] [address] Denia Aponte NP 09/07/2024 Refill [facility] [address] [place] [address] Denia Aponte NP Paroxysmal atrial fibrillation (HCC) (Primary Dx); Insomnia, unspecified type; Chronic GERD; Essential hypertension, benign 09/07/2024 Telephone [facility] [address] [place] [address] Unallocated, [facility] MD Kris 08/03/2024 Orders Only [facility] [address] [place] [address] Denia Aponte NP from Last 3 Months Immunizations Immunization Administration Dates Next Due Influenza, seasonal, injectable 08/14/2011 Pneumococcal Polysaccharide PPSV23 12/31/2018, Tdap 08/02/2024,02/11/2019,06/14/2017 Family History Medical History Relation Name Comments No Known Problems Father No Known Problems Mother Relation Name Status Comments Father Mother Social History Tobacco Use Types Packs/Day Years Used Date Smoking Tobacco: Never Passive Smoke Exposure: Never Smokeless Tobacco: Never Tobacco Cessation:Counseling Given: Not Answered Alcohol Use Standard Drinks/Week Comments Not Currently [...] Sign Reading Time Taken Comments Blood Pressure 138/74 06/02/2024 1:21 PM EST Pulse 89 06/02/2024 1:21 PM EST Temperature 36.2 C (97.1 F) 06/02/2024 1:21 PM EST Respiratory Rate 16 06/02/2024 1:21 PM EST Oxygen Saturation 98% 06/02/2024 1:21 PM EST Inhaled Oxygen Concentration - - Weight 109 kg (240 lb) 06/02/2024 1:21 PM EST Height 182.9 cm (6') 06/02/2024 1:21 PM EST Body Mass Index 32.55 06/02/2024 1:21 PM EST Plan of Treatment Health Maintenance Due Date Last Done Comments CT Colonography 1959 Colonoscopy 1959 FIT-DNA 1959 FIT 1959 Medicare Annual Wellness (AWV) 1960 Sigmoidoscopy 1960 Pneumococcal Vaccine: 65+ Ye ars (2 of 2 - PCV) 01/01/2020 12/31/2018, 08/14/2011 Colorectal Cancer Screening 02/11/2024 FOBT 02/11/2024 02/10/2023, 01/11/2023 Influenza Vaccine (Season Ended) 2025 08/14/19 12 Procedures Procedure Name Priority Date/Time Associated Diagnosis Comments ECG 12-LEAD Routine 09/23/2024 2:56 PM EDT XR KNEE 3 VIEWS RIGHT Routine 08/03/2024 10:13 AM EDT from Last 3 Months Results * ECG 12 lead (09/23/2024 2:56 PM EDT) Denia Aponte NP ECG ORDERABLES Final Result * XR knee 3 views right (08/03/2024 10:13 AM EDT) Anatomical Region Laterality Modality Lower Extremities, Knee Right Radiogra phic Imaging Denia Aponte NP IMG XR PROCEDURES Final Result from Last 3 Months Insurance [place] Advance Directives Documents on File Type Date Recorded Patient Hydraulics Teacher Expl anation Advance Directives and Livin g Will 06/24/2023 11:28 AM DNR Order Care Teams Mica Inspector Relationship Specialty Start Date End Date Joaquin Leonard MD [address] [place] [phone] PCP - [employer] 08/19/23 Joaquin Leonard MD [address] [place] [phone] PCP - General Family Medicine 01/30/24 Estrella Medina NP [address] [place] [phone] Nurse Practitioner Family Medicine 12/23/23
--- OUTSIDE RECORDS SUMMARY | 2024-11-03 16:42 | XMS_ITS | Encounter Summary ---
Author Organization [employer] [facility] tem Address [id number] [address] [place] [address] Care Team Providers Care Balance Wheel Arm Burnisher Name Role Phone Estrella Medina Neal RN LAB-TAR KETTLE RUNNER Primary Care Pr ovider Encounter Details Date Type Department Care Team (Latest Contact Info) Description 10/25/2024 Travel Social History Tobacco Use Types Packs/Day Years Used Date Smoking Tobacco: Never Smokeless Tobacco: Never Alcohol Use Standard Drinks/Week Comments Yes 28 (1 standard drink = 0.6 oz pu re alcohol) every other day [facility] Utilities Answer Date Recorded In the past 12 months has [employer] electric, gas, oil, or water company threatened [...] any clubs o r organizations such as rastafari groups, unions, fraternal or athletic groups, or [...] Answer Date Recorded Total Score 0 10/26/2024 [facility] Health - Occupational Stress Questionnaire Answer Date [...] Do you need help finding a [facility] career center and/or a training [...] documented as of this encounter Care Teams Balance Wheel Arm Burnisher Relationship Specialty Start Date End Date Estrella Medina, RN LAB-TAR KETTLE RUNNER [address] [place] [address] PCP - General Nurse Practitioner 05/19/24 documented as of this encounter
--- OUTSIDE RECORDS SUMMARY | 2024-11-03 16:42 | XMS_ITS | Encounter Summary ---
Author Organization [employer] [facility] tem Address [id number] [address] [place] [address] Care Team Providers Care Electronic Warfare Linguist Name Role Phone Estrella Medina Neal JEWEL DIAMETER GAUGER-AEROSPACE ENGINEER Primary Care Pr ovider Encounter Details Date Type Department Care Team (Late Contact Info) Description 04/07/2024 Orders Only [facility] [address] [place] [phone] Stella Hernandez CMA ICD (implantable cardioverter-defibrill ator) in place- [employer] Social History Tobacco Use Types Packs/Day Years Used Date Smoking Tobacco: Never Smokeless Tobacco: Never Alcohol Use Standard Drinks/Week Comments Yes 28 (1 standard drink = 0.6 oz pu re alcohol) not since december 2022 [facility] Utilities Answer Date Recorded In the past 12 months has [employer], gas, oil, or water company threatened to [...] often do you attend chur ch or sabianist services? Never 12/26/2022 Do you belong to any clubs o r organizations such as scientologist groups, unions, fraternal or athletic groups, or [...] Answer Date Recorded Total Score 0 12/26/2022 [facility] of Occupat ional Health - [...] Recorded Do you need help finding a [facility] career center and/or a training program? No [...] Procedure Name Priority Date/Time Associated Diagnosis Comments DEVICE INTERROGATION Routine 04/03/2024 ICD (implantable cardioverter-defibrillator) in place- [employer] documented in this encounter Results * Device Interrogation (04/03/2024) Anatomical Region Laterality Modality Other 04/03/2024 Socorro Ruiz MD CV CARDIAC SERVICES ORDER MANNIE Final Result documented in this encounter Visit Diagnoses Diagnosis ICD (implantable cardioverter-defibrillator) in place- [employer] documented in this encounter Additional Health Concerns Infection Onset Date Last Indicated Resolved Time Enteric Rule-Out 10/27/2024 10/27/2024 10/27/2024 2:27 PM EDT C. Difficile 10/27/2024 10/27/2024 Assessment Noted Time PHQ-9 Depression Total Score: 0 12/27/19 23 1:44 PM EDT documented as of this encounter Care Teams Electronic Warfare Linguist Relationship Specialty Start Date End Date Estrella Medina, JEWEL DIAMETER GAUGER-AEROSPACE ENGINEER [address] [place] [address] PCP - General Nurse Practitioner 05/19/24 documented as of this encounter
--- OUTSIDE RECORDS SUMMARY | 2024-11-03 16:42 | XMS_ITS | Encounter Summary ---
Author Organization [employer] Sys tem Address [id number] [address] [place] [address] Care Team Providers Care Wedding Coordinator Name Role Phone Estrella Medina REGISTRAR NURSES' REGISTRY-FORMING PRESS OPERATOR Primary Care Pr ovider Reason for Visit * Reason Comments Med Change Request Encounter Details Date Type Department Care Team ([facility] Contact Info) Description 10/29/2024 Refill [facility] [address] [place] [phone] Sawyer Powell MD [address] [place] [address], [address] [place], [place] [id number] Med Change Request Social History Tobacco Use Types Packs/Day Years Used Date Smoking Tobacco: Never Smokeless Tobacco: Never Alcohol Use Standard Drinks/Week Comments Yes 28 (1 standard drink = 0.6 oz pu re alcohol) every other day [facility] Utilities Answer Date Recorded In the past 12 months has [employer], gas, oil, or water [employer] threatened to shut off services in your [...] How often do you attend chur or jewish services? Never 12/26/2022 Do you belong to any clubs o r organizations such as rastafarian groups, unions, fraternal or athletic groups, or [...] Answer Date Recorded Total Score 0 10/26/2024 [facility] of Occupat ional Health - Occupational Stress [...] Recorded Do you need help finding a [facility] career center and/or a training program? No [...] encounter Miscellaneous Notes * Telephone Encounter - Chloé Farias RN - 10/29/2024 12:20 PM EDT Not prescribed by PPC documented in this encounter Plan of Treatment [...] documented as of this encounter Care Teams Wedding Coordinator Relationship Specialty Start Date End Date Estrella Medina, REGISTRAR NURSES' REGISTRY-FORMING PRESS OPERATOR [address] [place] [address] PCP - General Nurse Practitioner 05/19/24 documented as of this encounter
--- OUTSIDE RECORDS SUMMARY | 2024-11-03 16:42 | XMS_ITS | Encounter Summary ---
Author Organization [employer] tem Address [id number] [address] [place] [address] Care Team Providers Care Medical Technologist Name Role Phone Estrella Medina MINING AND QUARRYING MACHINERY REPAIRER-CO CHAIRMAN Primary Care Pr ovider Reason for Visit * Reason Comments Med Refill Encounter Details Date Type Department Care Team ([facility] st Contact Info) Description 01/04/2022 Refill [facility] [address] [phone] Jory Muñoz, MINING AND QUARRYING MACHINERY REPAIRER-CO CHAIRMAN [address] [phone] Med Refill Social History Tobacco Use Types [...] encounter Miscellaneous Notes * Telephone Encounter - Lesa Mendes RN - 01/04/2022 11:13 AM EDT discontinued documented in this encounter Plan of Treatment [...] as of this encounter Care Teams Medical Technologist Relationship Specialty Start Date End Date Estrella Medina, MINING AND QUARRYING MACHINERY REPAIRER-CO CHAIRMAN [address] [place] [address] PCP - General Nurse Practitioner 05/19/24 documented as of this encounter
--- OUTSIDE RECORDS SUMMARY | 2024-11-03 16:42 | XMS_ITS | Encounter Summary ---
Author Organization [facility] [employer] [facility] tem Address [id number] [address] [place] [address] Care Team Providers Care Fence Installer Foreman Name Role Phone Estrella Medina PARKING METER MECHANIC-TECHNOLOGIES DIVISION CHAIR Primary Care Pr ovider Encounter Details Date Type Department Care Team (Late Contact Info) Description 10/14/2021 Documentation [facility] [address] [place] [phone] Ariella Rodriguez, CHRISTINA Social History Tobacco Use Types Packs/Day [...] AM EDT documented as of this encounter Plan of [...] documented as of this encounter Care Teams Fence Installer Foreman Relationship Specialty Start Date End Date Estrella Medina, PARKING METER MECHANIC-TECHNOLOGIES DIVISION CHAIR [address] [place] [address] PCP - General Nurse Practitioner 05/19/24 documented as of this encounter
--- OUTSIDE RECORDS SUMMARY | 2024-11-03 16:42 | XMS_ITS | Encounter Summary ---
Author Organization [employer] tem Address [facility] [id number] [address] [place] [address] Care Team Providers Care Bush Regenerator Name Role Phone Estrella Medina INTELLIGENCE AGENT-SIGNAL AND COMMUNICATIONS MAINTAINER Primary Care Pr ovider Reason for Visit * Reason Onset Date Comments Med Refill 04/20/2024 Encounter Details Date Type Department Care Team ([facility] Contact Info) Description 04/20/2024 Refill [facility] [address] [place] [phone] Kira Wells LPN Med Refill Social History Tobacco Use Types Packs/Day Years Used Date Smoking Tobacco: Never Smokeless Tobacco: Never Alcohol Use Standard Drinks/Week Comments Yes 28 (1 standard drink = 0.6 oz pu re alcohol) not since december 2022 [facility] Utilities Answer Date Recorded In the past 12 months has [employer], gas, oil, or water [employer] threatened to shut off services in your [...] often do you attend chur ch or methodist services? Never 12/26/2022 Do you belong to any clubs o r organizations such as worship groups, unions, fraternal or athletic groups, or [...] Date Recorded Total Score 0 12/26/2022 [facility] - [...] documented as of this encounter Care Teams Bush Regenerator Relationship Specialty Start Date End Date Estrella Medina, INTELLIGENCE AGENT-SIGNAL AND COMMUNICATIONS MAINTAINER [address] [place] [address] PCP - General Nurse Practitioner 05/19/24 documented as of this encounter
--- OUTSIDE RECORDS SUMMARY | 2024-11-03 16:42 | XMS_ITS | Encounter Summary ---
Author Organization [employer] tem Address [id number] [address] [place] [address] Care Team Providers Care Basketballs And Footballs Reverser Name Role Phone Estrella Medina LACTATION COORDINATOR-MEDICAL BILLING REPRESENTATIVE Primary Care Pr ovider Reason for Visit * Reason Comments Med Refill Encounter Details Date Type Department Care Team ([facility] Contact Info) Description 11/16/2021 Refill [facility] [address] [place] [phone] Hong Waller, PA-C [address] [place], [place] [phone] Med Refill Social History Tobacco Use Types [...] have Coronavirus / COVID-19? No / Unsure 11/09/2021 10:01 AM EDT documented as of this encounter [...] documented as of this encounter Care Teams Basketballs And Footballs Reverser Relationship Specialty Start Date End Date Estrella Medina, LACTATION COORDINATOR-MEDICAL BILLING REPRESENTATIVE [address] [place] [address] PCP - General Nurse Practitioner 05/19/24 documented as of this encounter
--- OUTSIDE RECORDS SUMMARY | 2024-11-03 16:42 | XMS_ITS | Encounter Summary ---
Author Organization [employer] tem Address [facility] [id number] [address] [place] [address] Care Team Providers Care Fuel Dock Attendant Name Role Phone Estrella Medina Neal WATER POLLUTION CONTROL INSPECTOR-FAN BALANCER Primary Care Pr ovider Encounter Details Date Type Department Care Team (Late Contact Info) Description 10/27/2024 Telephone [facility] [address] [place] [phone] Alison Schuster CMA Social History Tobacco Use Types Packs/Day Years Used Date Smoking Tobacco: Never Smokeless Tobacco: Never Alcohol Use Standard Drinks/Week Comments Yes 28 (1 standard drink = 0.6 oz pu re alcohol) every other day [facility] Utilities Answer Date Recorded In the past 12 months has [employer], gas, oil, or water [employer] threatened to shut off services in your [...] often do you attend chur ch or latter-day services? Never 12/26/2022 Do you belong to [...] Answer Date Recorded Total Score 0 10/26/2024 [facility] - Occupational [...] Recorded Do you need help finding a [facility] career center and/or a training [...] encounter Miscellaneous Notes * Telephone Encounter - Alison Schuster CMA - 10/27/2024 9:15 AM EDT Not able to leave a msg on his phone called niece and left vmsg documented in this encounter Plan of Treatment [...] documented as of this encounter Care Teams Fuel Dock Attendant Relationship Specialty Start Date End Date Estrella Medina, WATER POLLUTION CONTROL INSPECTOR-FAN BALANCER [address] [place] [address] PCP - General Nurse Practitioner 05/19/24 documented as of this encounter
--- OUTSIDE RECORDS SUMMARY | 2024-11-03 16:43 | XMS_ITS | Encounter Summary ---
Author Organization [employer] [facility] tem Address [facility] [id number] [address] [place] [address] Care Team Providers Care Patent Solicitor Name Role Phone Estrella Medina Neal NOTE TAKER-RAPID EXTRACTOR OPERATOR Primary Care Pr ovider Encounter Details Date Type Department Care Team (Late Contact Info) Description 05/31/2022 Telephone [facility] [address] [place] [phone] Christina Akers LPN Social History Tobacco Use Types Packs/Day Years [...] have Coronavirus / COVID-19? No / Unsure 05/25/2022 2:05 PM EST documented as of this encounter [...] documented as of this encounter Care Teams Patent Solicitor Relationship Specialty Start Date End Date Estrella Medina, NOTE TAKER-RAPID EXTRACTOR OPERATOR [address] [place] [address] PCP - General Nurse Practitioner 05/19/24 documented as of this encounter
[2024-11-03 17:01] LABS: Ammonia 24 umol/L (11-32)
== END 2024-11-03 16:36 | disposition home or self-care (01) ==
LOC: LAB 16:35
PROVIDERS: PCP Family Medicine; Visit Provider Family Medicine
DX: K76.9 Liver disease, unspecified (principal)
CPT/HCPCS: 36415; 82140